=== PATIENT | female | born 1960 | race Caucasian/White ===

== ENCOUNTER → 2017-08-25 13:29 | Outpatient (CLI) | payer BC, SELFPAY ==
--- NOTE | 2017-08-25 13:37 | RAD_ITS ---
STUDY: X-RAY CHEST REASON FOR EXAM: Female, 57 years old. One-month history of cough and illness. TECHNIQUE: PA and lateral views of the chest. COMPARISON: None. FINDINGS: Increased markings in the lingular segment of the left upper lobe suggestive of a possible early infiltrate. Follow-up is recommended. There is no demonstrated pleural abnormality. Normal size heart. Normal mediastinum and keshia. Normal visualized pulmonary arteries. There is atherosclerotic tortuosity of the aortic arch and descending thoracic aorta. There are degenerative changes of the visualized thoracic spine. Normal visualized ribs, clavicles, and shoulders. There is no demonstrated abnormality of the visualized soft tissue structures of the upper abdomen. RAD/Chest PA and Lateral IMPRESSION: Increased markings in the lingular segment of the left upper lobe suggestive of early infiltrate. Electronically Signed: Tato Knox MD at 14:06 EST Tel [phone], Service support ,
== END ==
PROVIDERS: Family Provider Internal Medicine; PCP Internal Medicine; Visit Provider Internal Medicine
DX: R05 Cough (principal)
CPT/HCPCS: 71046

== ENCOUNTER → 2017-09-24 11:43 | Outpatient (CLI) | payer BC, SELFPAY ==
--- NOTE | 2017-09-24 11:46 | RAD_ITS ---
STUDY: X-RAY CHEST REASON FOR EXAM: Female, 57 years old. Pneumonia TECHNIQUE: PA and lateral views of the chest. COMPARISON: 08/25/2017 FINDINGS: The lungs are clear and expanded. There is no demonstrated pleural abnormality. Normal size heart. Normal mediastinum and keshia. Normal visualized pulmonary arteries. Normal visualized aortic arch and descending thoracic aorta. There are diffuse degenerative changes of the visualized thoracic spine. Degenerative changes are seen within the right acromioclavicular joint. There is no demonstrated abnormality of the visualized soft tissue structures of the upper abdomen. RAD/Chest PA and Lateral IMPRESSION: Degenerative changes, as described above. No demonstrated acute cardiopulmonary process. Electronically Signed: Madi Sheikh DO at 11:04 EDT Tel , Service support ,
== END ==
PROVIDERS: Family Provider Internal Medicine; PCP Internal Medicine; Visit Provider Internal Medicine
DX: Z87.01 Personal history of pneumonia (recurrent) (principal)
CPT/HCPCS: 71046

== ENCOUNTER → 2018-08-03 11:43 | Outpatient (CLI) | payer BC, SELFPAY ==
--- NOTE | 2018-08-03 11:47 | BI_ITS ---
MAMMOGRAPHY - BILATERAL SCREENING REASON FOR EXAM: Female, 58 years old. Routine annual screening examination. PERTINENT HISTORY: Grandmother with breast cancer. Aunt with breast cancer. TECHNIQUE: Digital bilateral breast omari (3D mammographic acquisition) in the CC and MLO projections. 2-D mediolateral oblique (MLO) and craniocaudad (CC) views of both breasts were obtained. CAD: Full Field Digital Mammography with Computer Added Detection was performed. COMPARISON: Comparison is made with prior study dated February 16, 2016 and January 19, 2015. FINDINGS: Breast Composition: There are scattered areas of fibroglandular density. There are no dominant masses or suspicious calcifications. No other significant abnormalities are identified. There has been no significant change since the prior study. BI/SCREENING MAMM (CAD), BILAT IMPRESSION: Stable bilateral screening mammogram. Yearly follow-up mammogram recommended. (A) ASSESSMENT CATEGORY: BIRADS Category 1: Negative. A letter regarding these results will be sent to the patient by the facility within 30 days. Approximately 10% of breast cancers are not detected by mammography. A normal mammogram should not delay biopsy of a clinically suspicious abnormality. [id number] Electronically Signed: Tato Knox MD at 12:56 EST Tel [phone], Service support ,
--- OUTSIDE RECORDS SUMMARY | 2018-10-05 22:57 | XMS RPT_ITS | Continuity of Care Document ---
:1960 Author Organization [facility] Address [address] [facility] [address] [place] [address] Phone Care Team Providers Name Role Phone Billie Laurent DO Unavailable Dr. Sandoval Enrique Unavailable Bianca Fonseca Unavailable Dr. Juan Mercer Unavailable Aakash Butt Unavailable Unavailable Leslee Rose CNP Unavailable Long 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, Kathy L Unavailable Unavailable Gravius, Aimee Unavailable Unavailable Unavailable Unavailable Problems Name Dates Details Acute non-recurrent sinusitis, unspecified location (J01.90, 461.9) Status: Active ANEMIA, UNSPECIFIED (D64.9, 285.9) Status: Active Anxiety (F41.9, 300.00) Comments: PHQ 9: 5(mild depression, severe anxiety),was started on Celexa 20 mg, used it for 2 weeks but wants to use something natural as experiencing fatigue, not noticing any improvement at all(told her will not notice improvement so early)Discontinue celexa.Counselled patient: Integrative medicine is a blend of medical and nutritional(plant based/whole food) approach to support a physiologic or organ syste m without prescription or surgery.I gave the patient both conventional options as well as traditional nutritional options including nutritional supplements, diet and lifestyle changes.Patient wants to s top celexa and wanted to support her body naturally. Started on Minchex 1 tab Qd, will follow up in one month, consider increasing to BID.Consider adding SYmplex F.Refusing counselling Leslee Fonseca .Follow up in 4 weeks.Come home tired, doesnt want to do anything,Is not interested in daily activities,Energy level low,Denies Suicidal/homicidal ideations.Feels anxious all the time, fear of needles a nd procedures, anxiety with colonoscopy.Works [employer],job changes, 23 yr old daughter has DOWNS and lives with her .Had counselling for PTSD after daughter was born. Status: Active BMI 38.0-38.9,adult (Z68.38, V85.38) Status: Active BMI 40.0-44.9, adult (Z68.41, V85.41) Comments: DIET AND EXERCISE:-health recomendations that are to be followed unless otherwise told unable to do are 10,000 steps a day (can buy a pedometer at sport stores), -5 days of week of 30 mins of cardiotrai nuria (increase heartrate around 110-130 and sweating in 10 min), twice a week of 15 min weight lifting. -Cut out corn syrups, sweets, breads pasta and potatoes, white flour.Eat more whole grain bread or pasta if have to have any use spagetti squash for pasta and quinoa for rice.(whole grains to increase are barley, brown rice, bulgar wheat, popcorn oat cereal, oatmeal, muesli cereal, rye quinoa, whole grain anything recommend 1/3 of grains whole grains, about 30 gm a day)- clean eating is recommend with lean protein like fish, chicken, turkey, lean redmeat (only 2-3 servings a week), baked broil ed or grilled.- saturated fats to avoid are meat, dairy, chips, pastries, hydrogenated veg. oilunsaturated fats that are good are nuts, avocados, olives- raw vegetables. 2 servings of fruit a day and d ouble the vegatables over fruits-Eat from refrigerator not pantry. Shop from the outside aisle and produce and not inner aisle.Weigh yourself daily, lose 1- 2 pounds per week.Can join WHY WEIGHT program me with [facility] for nutrition counselling. BMI 40.46.Cost 300 $ so does not want to spend the money.Does not exercise Status: Active Candidiasis, mouth (B37.0, 112.0) Status: Active Deliveries (Parity) Comments: 2. Status: Active Diverticular disease (K57.90, 562.10) Comments: based on CT scan abdomen /pelvis(03-31-15).High fiber diet Status: Active Elevated blood pressure reading (R03.0, 796.2) Comments: need to recheck in few weeks. Status: Active Fatigue (R53.83, 780.79) Status: Active GERD (530.81) Comments: History of reflux and large hiatal hernia for the last 5 years. Patient is taking Prilosec off and on. Denies any blood in the stools, black tarry stools, difficulty swallowing, unexplained weight loss or abd pain. Status: Active Hiatal hernia (K44.9, 553.3) Comments: Very large(based on Ct abdomen/pelvis )03-31-15 Status: Active History of migraine headaches (Z86.69, V12.49) Comments: followed as 5 x 5 in both lower extremities. Reflexes +2 in both lower extremities. Sensation is normal in both lower extremities. All risks 5 x 5 both upper extremities. Sensation is normal in both upper extremities. Reflexes normal in both upper extremities.Patient was advised to get a head CT but refused.Continue Excedrin MigraineContinue Tylenol Extra Strength as needed.Refer the patient to p hysical therapy for subjective weakness in the legs. Consider EMG and nerve conduction studies if weakness persist in the future but patient is refusing now.patient has a history of migraine headaches b ut for the last 5 days is complaining of headaches in the frontal sinuses. Headache is 6 x 10 in severity and lasted the whole day. Had episodes of headache on Friday and Friday. Unlike he r migraine headaches. Patient typically has photophobia and phonophobia with her migraine headaches. Complaining of chronic weakness in her legs L>R since she had left knee surgery.She thinks i ts because of weak knees. Patient wakes up in the middle of the night with her headache. Patient is unable to concentrate on her work because of her headaches. Status: Active HTN (hypertension), benign (I10, 401.1) Status: Active Hypercholesteremia (Renamed from Hypercholesterolemia) (E78.00, 272.0) Status: Active Influenza vaccination declined (Renamed from Refused influenza vaccine) (Z28.21, V64.06) Comments: i dont get flu shotsi dont get flu shots Status: Active Knee pain, chronic, left (M25.562, 719.46) Comments: reffered for physical therapy Status: Active Need for prophylactic vaccination and inoculation against influenza (Renamed from Need for immunization against influenza) (Z23, V04.81) Status: Active Non-smoker (Z78.9, V49.89) Status: Active Non-smoker (Z78.9, V49.89) Status: Active Nutritional counseling (Z71.3, V65.3) Status: Active Plantar fasciitis, left (M72.2, 728.71) Comments: PLANTER FASCITIS now improved with Naproxen BID, avoid prolong standing, flat shoes and walking barefoot. using Arch support.Will work on Stretching exercise.Pain and swelling in left foot since July .Pain on bottom of foot, lateral side of foot, worse after walking.No trauma.Wakes in the middle of the night with pain.Hurts when pushes on the head of the 2nd Metatarsal on the base.Her toes are crowded from and dorsilflexed. Status: Active Pregnancies () Comments: 2. Status: Active Psoriasis (L40.9, 696.1) Comments: Patient has some psoriatic plaques on the extensor surface of the arms and legs. Status: Active Sciatica of right side (M54.31, 724.3) Comments: rx massage therapy gfivne Status: Active Screening mammogram, encounter for (Z12.31, V76.12) Status: Active Sore throat (J02.9, 462) Status: Active Sore throat (J02.9, 462) Status: Active Stress reaction (F43.0, 308.9) Status: Active Unspecified Diagnosis Status: Active Unspecified Diagnosis Status: Active Medications Name Dates Details Clotrimazole 10 MG Mouth/Throat Robert 1 (one) Robert 5x daily for 10 days Quantity: 50 {Robert} Refills: 0 Ordered:09-Jun-2018 Leslee Rose CNP Start : 09-Jun-2018 Active Lisinopril-Hydrochlorothiazide 10-12.5 MG Oral Tablet 1/2 Tablet bid for 60 days Quantity: 60 {Tablet} Refills: 0 Ordered:18-Jun-2018 Willy Laurent DO, DO, Kathleen Start : 18-Jun-2018 Active PriLOSEC 20 MG Oral Capsule Delayed Release 1 (one) Capsule DR two times daily for 30 days Quantity: 60 {Capsule} Refills: 6 Ordered:30-Sep-2017 Willy Laurent DO, DO, Kathleen Start : 30-Sep-2017 Active Comments:30 minutes before meals Albuterol Sulfate (2.5 MG/3ML) 0.083% Inhalation Nebulization Solution 1 (one) Milliliter q 6hr prn for 0 days Quantity: 1 {Box} Refills: 0 Ordered:20-Apr-2018 Aimee Rivera Start : 27-Aug-2017 End : 20-Apr-2018 Inactive Amoxicillin 500 MG Oral Capsule 1 (one) Capsule Capsule q12h for 10 days Quantity: 20 {Capsule} Refills: 0 Ordered:26-Aug-2017 Willy Laurent DO, DO, Kathleen Start : 19-Aug-2017 End : 26-Aug-2017 Inactive Amoxicillin 875 MG Oral Tablet 1 (one) Tablet Tablet bid for 0 days Quantity: 20 {Tablet} Refills: 0 Ordered:04-Nov-2017 Nya Olivarez LPN Start : 24-Sep-2017 End : 04-Nov-2017 Inactive CELEXA, 20MG (Oral Tablet) 1 (one) Tablet daily for 30 days Quantity: 30 {Tablet} Refills: 0 Ordered:12-Oct-2015 Fermin Oviedo MD Start : 12-Oct-2015 End : 11-Nov-2015 Inactive Cheratussin AC 100-10 MG/5ML Oral Syrup 4 Milliliter Milliliter qhs prn cough for 0 days Quantity: 120 {Milliliter} Refills: 0 Ordered:02-Sep-2017 Nya Olivarez LPN Start : 19-Aug-2017 End : 02-Sep-2017 Inactive Clobetasol Propionate 0.05 % External Cream apply to affected area Cream two times daily for 30 days Quantity: 1 {Tube} Refills: 0 Ordered:30-Sep-2017 Willy Laurent DO, DO, Kathleen Start : 30-Sep-2017 End : 30-Oct-2017 Inactive EXCEDRIN MIGRAINE, 017-824-46TA (Oral Tablet) 1 prn for migraines (250-250-65 MG) Inactive Ferrous Sulfate 325 (65 Fe) MG Oral Tablet Delayed Release 1 (one) Tablet DR tid for 30 days Refills: 2 Ordered:20-Apr-2018 Aimee Rivera Start : 21-Aug-2015 End : 20-Apr-2018 Inactive Comments:.For constipation take Miralax mixed in apple juice once a day. Levaquin 750 MG Oral Tablet 1 (one) Tablet qd for 0 days Quantity: 3 {Tablet} Refills: 0 Ordered:02-Sep-2017 Nya Olivarez LPN Start : 27-Aug-2017 End : 02-Sep-2017 Inactive PredniSONE 10 MG Oral Tablet 1 (one) Tablet Tablet 1 bid x 3 days, then daily x 3 days then 1/2 x 3 days for 0 days Quantity: 12 {Tablet} Refills: 0 Ordered:02-Sep-2017 Nya Olivarez LPN Start : 19-Aug-2017 End : 02-Sep-2017 Inactive Comments:with food PRILOSEC OTC, 20MG (Oral Tablet Delayed Release) 1 qd (20 MG) Inactive ProAir HFA 108 (90 Base) MCG/ACT Inhalation Aerosol Solution 2 (two) Puff Puff tid prn for 0 days Quantity: 1 {Inhaler} Refills: 0 Ordered:20-Apr-2018 Aimee Rivera Start : 19-Aug-2017 End : 20-Apr-2018 Inactive TYLENOL EXTRA STRENGTH, 500MG (Oral Tablet) 1 prn (500 MG) Inactive Allergies and Adverse Reactions Name Dates Details TEGretol *ANTICONVULSANTS* (Allergy) Status: Active Comments: hives Zithromax Z-Jesus *MACROLIDES* (Allergy) Status: Active Comments: severe GI Past Medical History Name Dates Details Abnormal CXR (R93.89, 793.2) Comments: Repeat CXR to check for resolution.Pt is resistant to getting CXR.WIll check with radiology03/2015 - infiltrate and atelectasis Status: Inactive as of 30-Sep-2017 Abnormal lung sounds (R09.89, 786.7) Status: Inactive as of 30-Sep-2017 Acute generalized abdominal pain (Renamed from Abdominal pain, acute, generalized) (R10.84, 789.07) Comments: Resolved with miralax.Complete metabolic panel, amylase, lipase WNLCeliac panel:negativeabdominal pain and bloating:Now resolved with miralax and dietary changes.Colonoscopy:Scaterred diverticula, Xray abdomen /pelvis:Unremarkable bowel gas pattern. Bilateral basilar infiltrate/atelectsis.(03-29-15).Denies loose stools Status: Resolved as of 25-Aug-2017 Bronchitis (J40, 490) Status: Inactive as of 25-Aug-2017 Cough (R05, 786.2) Status: Resolved as of 24-Sep-2017 DIARRHEA (Renamed from D (diarrhea)) (R19.7, 787.91) Comments: Diarrhea likely viral gastroenteritis now resolvednow resolved Status: Inactive as of 25-Aug-2017 Elevated BP without diagnosis of hypertension (R03.0, 796.2) Status: Inactive as of 11-May-2018 Pneumonia, bacterial (J15.9, 482.9) Status: Resolved as of 24-Sep-2017 Retracted ear drum, bilateral (H73.823, 384.82) Status: Inactive as of 30-Sep-2017 Procedures Procedure Dates Details Cholecystectomy Completed Comments: 2009 Left Knee, meniscus repair and arthroscopy Completed Comments: February 2009 Mammogram (01-19-2015) stable Completed Microvascular Decompression Completed Comments: February 2007 Date Value Details 24-Sep-2017 Chest PA and Lateral Result: Comments: See Note; NOTES: [facility] Imaging Services [address] [place] [id number] Chest PA and Lateral MR#: [id number] Acct: [id number] Name: ANABELLA MICHEL Rep #: [id number] : 1960 F 57 From: Madi Sheikh DO PCP: Billie Laurent DO Status: REG CLI Study: Chest PA and Lateral Date of Exam: 09/24/17 Exam# [id number] Ordering Dr: Billie Laurent DO STUDY: X-RAY CHEST REASON FOR EXAM: Female, 57 years old. Pneumonia TECHNIQUE: PA and lateral views of the chest. COMPARISON: 08/25/2017 FINDINGS: The lungs are clear and exp anded. There is no demonstrated pleural abnormality. Normal size heart. Normal mediastinum and keshia. Normal visualized pulmonary arteries. Normal visualized aortic arch and descending thoracic aorta. There are diffuse degenerative changes of the visualized thoracic spine. Degenerative changes are seen within the right acromioclavicular joint. There is no demonstrated abnormality of the visualized s oft tissue structures of the upper abdomen. RAD/Chest PA and Lateral IMPRESSION: Degenerative changes, as described above. No demonstrated acute cardiopulmonary process. Electronically Signed: Madi Sheikh DO at 11:04 EDT Tel , Service support , CC: Billie Laurent DO Community Development Planner: Signed 25-Aug-2017 Chest PA and Lateral Result: Comments: See Note; NOTES: [facility] Imaging Services [address] [place] [id number] Chest PA and Lateral MR#: [id number] Acct: [id number] Name: ANABELLA MICHEL Rep #: [id number] : 1960 F 57 From: Tato Knox MD PCP: Billie Laurent DO Status: REG CLI Study: Chest PA and Lateral Date of Exam: 08/25/17 Exam# [id number] Ordering Dr: Billie Laurent DO STUDY: X- RAY CHEST REASON FOR EXAM: Female, 57 years old. One-month history of cough and illness. TECHNIQUE: PA and lateral views of the chest. COMPARISON: None. FINDINGS: Increased markings in the lingular segment of the left upper lobe suggestive of a possible early infiltrate. Follow-up is recommended. There is no demonstrated pleural abnormality. Normal size heart. Normal mediastinum and keshia. Normal visualized pulmonary arteries. There is atherosclerotic tortuosity of the aortic arch and descending thoracic aorta. There are degenerative changes of the visualize d thoracic spine. Normal visualized ribs, clavicles, and shoulders. There is no demonstrated abnormality of the visualized soft tissue structures of the upper abdomen. __ RAD/Chest PA and Lateral IMPRESSION: Increased markings in the lingular segment of the left upper lobe suggestive of early infiltrate. Electronically Signed: Tato Knox MD at 14:06 EST Tel [phone], Service support , CC: Billie Laurent DO Community Development Planner: Signed 16-Feb-2016 Bilat Scrn Digital AND CAD Result: Comments: See Note; NOTES: [facility] Imaging Services [address] [place] [id number] Verdana 4d Bilat Scrn Digital AND CAD MR#: [id number] Acct: [id number] Name: ANABELLA MICHEL Rep #: [id number] : 1960 F 55 From: Tato Knox MD PCP: Fermin Oviedo Status: REG CL Study: Bilat Scrn Digital AND CAD Date of Exam: 02/16/16 Exam# [id number] Ordering Dr: Bertha Richardson MD MAMMOGRAPHY - BILATERAL SCREENING REASON FOR EXAM: Female, 55 years old. Routine annual screening examination. PERTINENT HISTORY: Grandmother with breast cancer. TECHNIQUE: Digital bilateral breast omari (3D mammographic acquisition) in the CC and MLO projections. 2-D mediolateral oblique (MLO) and craniocaudad (CC) views of both breasts were obtained. CAD: Full Field Digital Mammography wi Computer Added Detection was performed. COMPARISON: Comparison is made with prior study dated January 19, 2015 and May 17, 2013. FINDINGS: Breast Composition: Th ere are scattered areas of fibroglandular density. There are no dominant masses or suspicious calcifications. No other significant abnormalities are identified. There has been no significant change si nce the prior study. HPBI/Bilat Scrn Digital AND CAD IMPRESSION: Stable bilateral screening mammogram. Yearly follow-up mammogram recommended. ( A) ASSESSMENT CATEGORY: BIRADS Category 1: Negative. A letter regarding these results will be sent to the patient by the facility within 30 days. Approximately 10% of breast cancers are not detected by mammography. A normal mammogram should not delay biopsy of a clinically suspicious abnormality. [id number] Electronically Signed: Tato Knox MD a t 15:42 EDT Tel [phone], Service support [phone], CC: Fermin Oviedo; Sima Richardson MD Community Development Planner: Signed Family History Unknown Family Member Name Dates Details Father Comments: diabestes, htn Status: Active Mother Comments: ulcerated colitis Status: Active Social History Name Dates Details No Caffeine Use Status: Active No Drug Use Status: Active Non Drinker/No Alcohol Use Status: Active Non Smoker/No Tobacco Use Status: Active Vital Signs Date Test Result Details [id number] Temperature 97.5 f Pulse 83 /min Comments: Pattern: Regular Respiration Rate 16 /min Comments: Pattern: Unlabored O2 SAT 96 % Comments: Room air BP Systolic 130 mm[Hg] Comments: Patient Position: Sitting; Cuff Location: Left Arm; Cuff Size: Standard BP Diastolic 82 mm[Hg] Comments: Patient Position: Sitting; Cuff Location: Left Arm; Cuff Size: Standard Weight 211.125 lb Height 62 in Body Mass Index Calculated 38.61 kg/m2 Body Surface Area Calculated 1.96 m2 [id number] Comments: her machine 132/82 Pulse 88 /min Comments: Pattern: Regular Respiration Rate 18 /min Comments: Pattern: Unlabored O2 SAT 98 % Comments: Room air BP Systolic 122 mm[Hg] Comments: Patient Position: Sitting; Cuff Location: Left Arm; Cuff Size: Large BP Diastolic 80 mm[Hg] Comments: Patient Position: Sitting; Cuff Location: Left Arm; Cuff Size: Large Weight 211.125 lb Height 62 in Body Mass Index Calculated 38.61 kg/m2 Body Surface Area Calculated 1.96 m2 :35 BP Systolic 146 mm[Hg] Comments: Patient Position: Sitting; Cuff Location: Left Arm; Cuff Size: Standard BP Diastolic 78 mm[Hg] Comments: Patient Position: Sitting; Cuff Location: Left Arm; Cuff Size: Standard Weight 211 lb Height 62 in Body Mass Index Calculated 38.59 kg/m2 Body Surface Area Calculated 1.96 m2 :48 Temperature 98 f Comments: Method: Temporal Pulse 76 /min Comments: Pattern: Regular Respiration Rate 16 /min Comments: Pattern: Unlabored O2 SAT 98 % Comments: Room air BP Systolic 180 mm[Hg] Comments: Patient Position: Sitting; Cuff Location: Left Arm; Cuff Size: Standard BP Diastolic 118 mm[Hg] Comments: Patient Position: Sitting; Cuff Location: Left Arm; Cuff Size: Standard Weight 211 lb Height 62 in Body Mass Index Calculated 38.59 kg/m2 Body Surface Area Calculated 1.96 m2 :25 Pulse 87 /min Comments: Pattern: Regular Respiration Rate 18 /min Comments: Pattern: Unlabored O2 SAT 97 % Comments: Room air BP Systolic 142 mm[Hg] Comments: Patient Position: Sitting; Cuff Location: Left Arm; Cuff Size: Large BP Diastolic 98 mm[Hg] Comments: Patient Position: Sitting; Cuff Location: Left Arm; Cuff Size: Large Weight 222 lb Height 62 in Body Mass Index Calculated 40.6 kg/m2 Body Surface Area Calculated 2 m2 [id number] Comments: 142/102 catapress given 0.1mg at 11:40 Pulse 80 /min Comments: Pattern: Regular Respiration Rate 18 /min Comments: Pattern: Unlabored O2 SAT 98 % Comments: Room air BP Systolic 156 mm[Hg] Comments: Patient Position: Sitting; Cuff Location: Left Arm; Cuff Size: Large BP Diastolic 102 mm[Hg] Comments: Patient Position: Sitting; Cuff Location: Left Arm; Cuff Size: Large Weight 222 lb Height 62 in Body Mass Index Calculated 40.6 kg/m2 Body Surface Area Calculated 2 m2 :42 Temperature 98.8 f Comments: Method: Temporal Pulse 96 /min Comments: Pattern: Regular Respiration Rate 18 /min Comments: Pattern: Unlabored O2 SAT 97 % Comments: Room air BP Systolic 142 mm[Hg] Comments: Patient Position: Sitting; Cuff Location: Left Arm; Cuff Size: Large BP Diastolic 90 mm[Hg] Comments: Patient Position: Sitting; Cuff Location: Left Arm; Cuff Size: Large Weight 222 lb Height 62 in Body Mass Index Calculated 40.6 kg/m2 Body Surface Area Calculated 2 m2 [id number] Pulse 106 /min Comments: Pattern: Regular Respiration Rate 18 /min Comments: Pattern: Unlabored O2 SAT 98 % Comments: Room air BP Systolic 124 mm[Hg] Comments: Patient Position: Sitting; Cuff Location: Left Arm; Cuff Size: Large BP Diastolic 88 mm[Hg] Comments: Patient Position: Sitting; Cuff Location: Left Arm; Cuff Size: Large Weight 221 lb Height 62 in Body Mass Index Calculated 40.42 kg/m2 Body Surface Area Calculated 1.99 m2 :10 Pulse 74 /min Comments: Pattern: Regular Respiration Rate 18 /min Comments: Pattern: Unlabored O2 SAT 97 % Comments: Room air BP Systolic 138 mm[Hg] Comments: Patient Position: Sitting; Cuff Location: Left Arm; Cuff Size: Large BP Diastolic 88 mm[Hg] Comments: Patient Position: Sitting; Cuff Location: Left Arm; Cuff Size: Large Weight 221 lb Height 62 in Body Mass Index Calculated 40.42 kg/m2 Body Surface Area Calculated 1.99 m2 :07 Pulse 89 /min Comments: Pattern: Regular Respiration Rate 20 /min Comments: Pattern: Unlabored O2 SAT 98 % Comments: Room air BP Systolic 148 mm[Hg] Comments: Patient Position: Sitting; Cuff Location: Left Arm; Cuff Size: Large BP Diastolic 98 mm[Hg] Comments: Patient Position: Sitting; Cuff Location: Left Arm; Cuff Size: Large Weight 221 lb Height 62 in Body Mass Index Calculated 40.42 kg/m2 Body Surface Area Calculated 1.99 m2 :51 Temperature 98.2 f Comments: Method: Temporal Pulse 72 /min Comments: Pattern: Regular Respiration Rate 16 /min Comments: Pattern: Unlabored O2 SAT 98 % Comments: Room air BP Systolic 164 mm[Hg] Comments: Patient Position: Sitting; Cuff Location: Left Arm; Cuff Size: Standard BP Diastolic 94 mm[Hg] Comments: Patient Position: Sitting; Cuff Location: Left Arm; Cuff Size: Standard Weight 221 lb Height 62 in Body Mass Index Calculated 40.42 kg/m2 Body Surface Area Calculated 1.99 m2 :37 BP Systolic 142 mm[Hg] Comments: Patient Position: Sitting; Cuff Location: Left Arm; Cuff Size: Standard BP Diastolic 82 mm[Hg] Comments: Patient Position: Sitting; Cuff Location: Left Arm; Cuff Size: Standard Weight 219.375 lb Height 62 in Body Mass Index Calculated 40.12 kg/m2 Body Surface Area Calculated 1.99 m2 :41 Temperature 97.8 f Comments: Method: Oral Pulse 92 /min Comments: Pattern: Regular O2 SAT 97 % Comments: Room air BP Systolic 128 mm[Hg] Comments: Patient Position: Sitting; Cuff Location: Left Arm; Cuff Size: Large BP Diastolic 78 mm[Hg] Comments: Patient Position: Sitting; Cuff Location: Left Arm; Cuff Size: Large Weight 219.375 lb Height 62 in Body Mass Index Calculated 40.12 kg/m2 Body Surface Area Calculated 1.99 m2 :22 Temperature 97 f Comments: Method: Temporal Pulse 93 /min Comments: Pattern: Regular Respiration Rate 16 /min Comments: Pattern: Unlabored O2 SAT 96 % Comments: Room air BP Systolic 124 mm[Hg] Comments: Patient Position: Sitting; Cuff Location: Left Arm; Cuff Size: Standard BP Diastolic 72 mm[Hg] Comments: Patient Position: Sitting; Cuff Location: Left Arm; Cuff Size: Standard Weight 219 lb Height 62 in Body Mass Index Calculated 40.06 kg/m2 Body Surface Area Calculated 1.99 m2 :47 Height 62 in :20 Temperature 98.5 f Comments: Method: Temporal Pulse 100 /min Comments: Pattern: Regular Respiration Rate 16 /min Comments: Pattern: Unlabored O2 SAT 97 % Comments: Room air BP Systolic 124 mm[Hg] Comments: Patient Position: Sitting; Cuff Location: Left Arm; Cuff Size: Standard BP Diastolic 80 mm[Hg] Comments: Patient Position: Sitting; Cuff Location: Left Arm; Cuff Size: Standard Weight 221.2 lb Height 62 in Body Mass Index Calculated 40.46 kg/m2 Body Surface Area Calculated 2 m2 :59 Temperature 98.2 f Comments: Method: Temporal Pulse 76 /min Comments: Pattern: Regular Respiration Rate 17 /min Comments: Pattern: Unlabored O2 SAT 98 % Comments: Room air BP Systolic 142 mm[Hg] Comments: Patient Position: Sitting; Cuff Location: Left Arm; Cuff Size: Standard BP Diastolic 78 mm[Hg] Comments: Patient Position: Sitting; Cuff Location: Left Arm; Cuff Size: Standard Weight 221.2 lb :51 Comments: 128/78, 89 /72, 92 /68, 95 standing Temperature 98.7 f Pulse 90 /min Comments: Pattern: Regular Respiration Rate 16 /min Comments: Pattern: Unlabored O2 SAT 99 % Comments: Room air BP Systolic 128 mm[Hg] Comments: Patient Position: Sitting; Cuff Location: Left Arm; Cuff Size: Standard BP Diastolic 80 mm[Hg] Comments: Patient Position: Sitting; Cuff Location: Left Arm; Cuff Size: Standard Weight 216 lb Results Date Description Value Details 20-Eov-972847:35 Renal function Panel (80825) Comments: PATIENT NOT FASTINGPERFORMED BY: JAY JAY [facility]70 [facility] [id number] Albumin 4.1 g/dL (Normal) Range: 3.5-5.5 Phosphorus 3.9 mg/dL (Normal) Range: 2.5-4.5 Calcium 9.6 mg/dL (Normal) Range: 8.7-10.2 Carbon Dioxide, Total 25 mmol/L (Normal) Range: 20-29 Chloride 103 mmol/L (Normal) Range: 96-106 Potassium 4.5 mmol/L (Normal) Range: 3.5-5.2 Sodium 144 mmol/L (Normal) Range: 134-144 BUN/Creatinine Ratio 22 (Normal) Range: 9-23 eGFR If Africn Am 89 mL/min/1.73 (Normal) eGFR If NonAfricn Am 77 mL/min/1.73 (Normal) Creatinine 0.85 mg/dL (Normal) Range: 0.57-1.00 BUN 19 mg/dL (Normal) Range: 6-24 Glucose 100 mg/dL (Abnormal) Range: 65-99 02-Mge-313503:35 CBC & PLATELETS (AUTO) Comments: PATIENT NOT FASTINGPERFORMED BY: CB Datavolution RoadDublin [place] [id number] (73585) Platelets 400 {x10E3/uL} (Abnormal) Range: 150-379 RDW 18.3 % (Abnormal) Range: 12.3-15.4 MCHC 32.5 g/dL (Normal) Range: 31.5-35.7 MCH 23.6 pg (Abnormal) Range: 26.6-33.0 MCV 73 fL (Abnormal) Range: 79-97 Hematocrit 34.5 % (Normal) Range: 34.0-46.6 Hemoglobin 11.2 g/dL (Normal) Range: 11.1-15.9 RBC 4.74 {x10E6/uL} (Normal) Range: 3.77-5.28 WBC 9.8 {x10E3/uL} (Normal) Range: 3.4-10.8 68-Ajy-491833:35 EBV Panel (90906) Comments: PATIENT NOT FASTINGPERFORMED BY: [facility]6370 [facility] [id number] Interpretation: SPRCS (Normal) Comments: EBV Interpretation Chart . Interpretation EBV-IgM EA(D)-IgG VCA-IgG EBNA-IgG . EBV Seronegative - - - - Early Phase + - - - Acute Primary + +or- + - Infection Convalescence/Past - +or- + + Infection Reactivated +or- + + + Infection + Antibody Present - Antibody Absent EBV Nuclear Antigen Ab, IgG >600.0 U/mL (Abnormal) Range: 0.0-17.9 Comments: Negative <18.0 Equivocal 18.0 - 21.9 Positive >21.9 EBV Ab VCA, IgG >600.0 U/mL (Abnormal) Range: 0.0-17.9 Comments: Negative <18.0 Equivocal 18.0 - 21.9 Positive >21.9 EBV Early Antigen Ab, IgG 28.6 U/mL (Abnormal) Range: 0.0-8.9 Comments: Hepatitis A, Hepatitis C and HIV antibodies may cross-reactwith this assay. Negative < 9.0 Equivoc al 9.0 - 10.9 Positive >10.9 EBV Ab VCA, IgM <36.0 U/mL (Normal) Range: 0.0-35.9 Comments: Negative <36.0 Equivocal 36.0 - 43.9 Positive >43.9 51-Znx-324326:20 Rapid Strep Test, Office (42175) Comments: neg Rapid Strep Test, Office Negative (Normal) 24-Hdp-170713:03 THROAT CULTURE (13057) Comments: PATIENT NOT FASTINGPERFORMED BY: [employer] Icpsix8136 [facility] [id number] Information: SRC:TH Result 1 RRF (Normal) Comments: Routine respiratory jose Upper Respiratory Culture Final report (Normal) 0-Crr-759157:55 Microscopic Examination Comments: PATIENT NOT FASTINGPERFORMED BY: [employer] Pawfgp6023 [facility] [id number] Bacteria None seen (Normal) Mucus Threads Present (Normal) Epithelial Cells (non renal) None seen {/hpf} (Normal) Range: 0 - 10 RBC 0-2 {/hpf} (Normal) Range: 0 - 2 WBC 0-5 {/hpf} (Normal) Range: 0 - 5 5-Atc-357197:55 URINALYSIS, W/ MICRO (41908) Comments: PATIENT NOT FASTINGPERFORMED BY: [employer] Cxqhzb4742 [facility] [id number] Microscopic Examination See below: (Normal) Comments: Microscopic was indicated and was performed. Nitrite, Urine Negative (Normal) Urobilinogen,Semi-Qn 0.2 mg/dL (Normal) Range: 0.2-1.0 Bilirubin Negative (Normal) Occult Blood Negative (Normal) Ketones Negative (Normal) Glucose Negative (Normal) Protein Negative (Normal) WBC Esterase 1+ (Abnormal) Appearance Clear (Normal) Urine-Color Yellow (Normal) pH 6.5 (Normal) Range: 5.0-7.5 Specific [place] 1.016 (Normal) Range: 1.005-1.030 1-Rhz-866322:55 METABOLIC PANEL, COMPREHENSIVE Comments: PATIENT NOT FASTINGPERFORMED BY: [facility] Wtyioo1089 [facility] [id number] (61500) ALT (SGPT) 14 [iU]/L (Normal) Range: 0-32 AST (SGOT) 13 [iU]/L (Normal) Range: 0-40 Alkaline Phosphatase 104 [iU]/L (Normal) Range: 39-117 Bilirubin, Total 0.6 mg/dL (Normal) Range: 0.0-1.2 A/G Ratio 1.5 (Normal) Range: 1.2-2.2 Globulin, Total 3.0 g/dL (Normal) Range: 1.5-4.5 Albumin 4.4 g/dL (Normal) Range: 3.5-5.5 Protein, Total 7.4 g/dL (Normal) Range: 6.0-8.5 Calcium 9.1 mg/dL (Normal) Range: 8.7-10.2 Carbon Dioxide, Total 22 mmol/L (Normal) Range: 20-29 Chloride 102 mmol/L (Normal) Range: 96-106 Potassium 4.2 mmol/L (Normal) Range: 3.5-5.2 Sodium 141 mmol/L (Normal) Range: 134-144 BUN/Creatinine Ratio 18 (Normal) Range: 9-23 eGFR If Africn Am 117 mL/min/1.73 (Normal) eGFR If NonAfricn Am 102 mL/min/1.73 (Normal) Creatinine 0.62 mg/dL (Normal) Range: 0.57-1.00 BUN 11 mg/dL (Normal) Range: 6-24 Glucose 89 mg/dL (Normal) Range: 65-99 4-Zli-375893:55 CBC W/AUTO DIFF WBC (31436) Comments: PATIENT NOT FASTINGPERFORMED BY: [facility] Wugwtn8047 [facility] [id number] Immature Grans (Abs) 0.0 {x10E3/uL} (Normal) Range: 0.0-0.1 Immature Granulocytes 0 % (Normal) Baso (Absolute) 0.0 {x10E3/uL} (Normal) Range: 0.0-0.2 Eos (Absolute) 0.1 {x10E3/uL} (Normal) Range: 0.0-0.4 Monocytes(Absolute) 0.5 {x10E3/uL} (Normal) Range: 0.1-0.9 Lymphs (Absolute) 1.9 {x10E3/uL} (Normal) Range: 0.7-3.1 Neutrophils (Absolute) 5.9 {x10E3/uL} (Normal) Range: 1.4-7.0 Basos 0 % (Normal) Eos 1 % (Normal) Monocytes 6 % (Normal) Lymphs 23 % (Normal) Neutrophils 70 % (Normal) Platelets 421 {x10E3/uL} (Abnormal) Range: 150-379 RDW 18.3 % (Abnormal) Range: 12.3-15.4 MCHC 31.5 g/dL (Normal) Range: 31.5-35.7 MCH 23.2 pg (Abnormal) Range: 26.6-33.0 MCV 74 fL (Abnormal) Range: 79-97 Hematocrit 35.2 % (Normal) Range: 34.0-46.6 Hemoglobin 11.1 g/dL (Normal) Range: 11.1-15.9 RBC 4.78 {x10E6/uL} (Normal) Range: 3.77-5.28 WBC 8.5 {x10E3/uL} (Normal) Range: 3.4-10.8 64-Nzs-206351:45 Microscopic Examination Comments: PATIENT WAS FASTINGPERFORMED BY: [place] [employer]6370 [facility] [id number] Bacteria Few (Normal) Mucus Threads Present (Normal) Epithelial Cells (non renal) 0-10 {/hpf} (Normal) Range: 0 - 10 RBC None seen {/hpf} (Normal) Range: 0 - 2 WBC 0-5 {/hpf} (Normal) Range: 0 - 5 65-Niw-014168:45 URINALYSIS, W/ MICRO (19795) Comments: PATIENT WAS FASTINGPERFORMED BY: [employer] Gqpxrf0900 [facility] [id number] Microscopic Examination See below: (Normal) Comments: Microscopic was indicated and was performed. Nitrite, Urine Negative (Normal) Urobilinogen,Semi-Qn 0.2 mg/dL (Normal) Range: 0.2-1.0 Bilirubin Negative (Normal) Occult Blood Negative (Normal) Ketones Trace (Abnormal) Glucose Negative (Normal) Protein Negative (Normal) WBC Esterase Trace (Abnormal) Appearance Clear (Normal) Urine-Color Yellow (Normal) pH 6.0 (Normal) Range: 5.0-7.5 Specific [place] 1.014 (Normal) Range: 1.005-1.030 26-Hss-932957:45 MICROALBUMIN: CREATININE RATIO Comments: PATIENT WAS FASTINGPERFORMED BY: [employer] Zthnzd6009 [facility] [id number] (11001) AND (94758) Alb/Creat Ratio 8.4 {mg/g_creat} (Normal) Range: 0.0-30.0 Albumin, Urine 3.9 ug/mL (Normal) Creatinine, Urine 46.4 mg/dL (Normal) 52-Kle-727476:45 METABOLIC PANEL, COMPREHENSIVE Comments: PATIENT WAS FASTINGPERFORMED BY: [employer] Ryrali2835 [facility] [id number] (58088) ALT (SGPT) 18 [iU]/L (Normal) Range: 0-32 AST (SGOT) 15 [iU]/L (Normal) Range: 0-40 Alkaline Phosphatase, S 97 [iU]/L (Normal) Range: 39-117 Bilirubin, Total 0.7 mg/dL (Normal) Range: 0.0-1.2 A/G Ratio 1.4 (Normal) Range: 1.2-2.2 Globulin, Total 3.0 g/dL (Normal) Range: 1.5-4.5 Albumin, Serum 4.2 g/dL (Normal) Range: 3.5-5.5 Protein, Total, Serum 7.2 g/dL (Normal) Range: 6.0-8.5 Calcium, Serum 9.0 mg/dL (Normal) Range: 8.7-10.2 Carbon Dioxide, Total 26 mmol/L (Normal) Range: 18-29 Chloride, Serum 101 mmol/L (Normal) Range: 96-106 Potassium, Serum 4.0 mmol/L (Normal) Range: 3.5-5.2 Sodium, Serum 142 mmol/L (Normal) Range: 134-144 BUN/Creatinine Ratio 17 (Normal) Range: 9-23 eGFR If Africn Am 113 mL/min/1.73 (Normal) eGFR If NonAfricn Am 98 mL/min/1.73 (Normal) Creatinine, Serum 0.69 mg/dL (Normal) Range: 0.57-1.00 BUN 12 mg/dL (Normal) Range: 6-24 Glucose, Serum 88 mg/dL (Normal) Range: 65-99 09-Nxo-988427:45 LIPID PANEL (93883) Comments: PATIENT WAS FASTINGPERFORMED BY: [facility] AccessoriesP[facility] Medicine [facility] Medical CenterBfesmk6381 [facility] [id number] LDL/HDL Ratio 2.3 {ratio_units} (Normal) Range: 0.0-3.2 Comments: LDL/HDL Ratio Men Women 1/2 Avg.Risk 1.0 1.5 Av g.Risk 3.6 3.2 2X Avg.Risk 6.2 5.0 3X Avg.Risk 8.0 6.1 LDL Cholesterol Calc 146 mg/dL (Abnormal) Range: 0-99 VLDL Cholesterol [place] 17 mg/dL (Normal) Range: 5-40 HDL Cholesterol 63 mg/dL (Normal) Triglycerides 83 mg/dL (Normal) Range: 0-149 Cholesterol, Total 226 mg/dL (Abnormal) Range: 100-199 41-Laz-868814:45 CBC W/AUTO DIFF WBC (11578) Comments: PATIENT WAS FASTINGPERFORMED BY: [employer] Czeiyt8349 [facility] [id number] Immature Grans (Abs) 0.0 {x10E3/uL} (Normal) Range: 0.0-0.1 Immature Granulocytes 0 % (Normal) Baso (Absolute) 0.0 {x10E3/uL} (Normal) Range: 0.0-0.2 Eos (Absolute) 0.1 {x10E3/uL} (Normal) Range: 0.0-0.4 Monocytes(Absolute) 0.6 {x10E3/uL} (Normal) Range: 0.1-0.9 Lymphs (Absolute) 2.1 {x10E3/uL} (Normal) Range: 0.7-3.1 Neutrophils (Absolute) 5.6 {x10E3/uL} (Normal) Range: 1.4-7.0 Basos 0 % (Normal) Eos 1 % (Normal) Monocytes 7 % (Normal) Lymphs 25 % (Normal) Neutrophils 67 % (Normal) Platelets 404 {x10E3/uL} (Abnormal) Range: 150-379 RDW 16.7 % (Abnormal) Range: 12.3-15.4 MCHC 31.8 g/dL (Normal) Range: 31.5-35.7 MCH 23.5 pg (Abnormal) Range: 26.6-33.0 MCV 74 fL (Abnormal) Range: 79-97 Hematocrit 36.2 % (Normal) Range: 34.0-46.6 Hemoglobin 11.5 g/dL (Normal) Range: 11.1-15.9 RBC 4.89 {x10E6/uL} (Normal) Range: 3.77-5.28 WBC 8.5 {x10E3/uL} (Normal) Range: 3.4-10.8 11-Cgt-779880:26 VIRAL CULTURE (79273) Comments: throat; PATIENT NOT FASTINGPERFORMED BY: [address] [id number] Information: THROAT SRC: [id number] Viral Culture, General No virus isolated. (Normal) 64-Lsc-373556:26 Throat Culture (66337) Comments: PATIENT NOT FASTINGPERFORMED BY: [address] [id number] Information: SRC: Result 1 RRF (Normal) Comments: Routine respiratory jose Upper Respiratory Culture Final report (Normal) 27-Fkn-711774:44 Rapid Strep Test, Office (70031) Rapid Strep Test, Office Negative (Normal) 2-Usz-038657:24 Rapid Flu (18150 x 2) Influenza A Ag Negative (Normal) 15-Aug-20158:05 Celiac Disease Comphrehensive Comments: PATIENT NOT FASTINGPERFORMED BY: [place] 2404570 [facility] [id number] Information: 581243,I63739 Profile (63845) Immunoglobulin A, Qn, Serum 200 mg/dL (Normal) Range: 91-414 Endomysial Antibody IgA Negative (Normal) t-Transglutaminase (tTG) IgG 3 U/mL (Normal) Range: 0-5 Comments: Negative 0 - 5 Weak Positive 6 - 9 Positive >9 t-Transglutaminase (tTG) IgA <2 U/mL (Normal) Range: 0-3 Comments: Negative 0 - 3 Weak Positive 4 - 10 Positive >10 . Tissue Transglutaminase (tTG) has been identified as the endomysial antigen. Studies have demonstr- ated that endomysial IgA antibo dies have over 99% specificity for gluten sensitive enteropathy. Deamidated Gliadin Abs, IgG 5 {units} (Normal) Range: 0-19 Comments: Negative 0 - 19 Weak Positive 20 - 30 Moderate to Strong Positive >30 Deamidated Gliadin Abs, IgA 7 {units} (Normal) Range: 0-19 Comments: Negative 0 - 19 Weak Positive 20 - 30 Moderate to Strong Positive >30 :05 CBC with auto diff (94642) Comments: PATIENT NOT FASTINGPERFORMED BY: [facility] Xyaxzb3948 [facility] [id number] Hematology Comments: Note: (Normal) Comments: Verified by microscopic examination. Immature Grans (Abs) 0.0 {x10E3/uL} (Normal) Range: 0.0-0.1 Immature Granulocytes 0 % (Normal) Baso (Absolute) 0.0 {x10E3/uL} (Normal) Range: 0.0-0.2 Eos (Absolute) 0.2 {x10E3/uL} (Normal) Range: 0.0-0.4 Monocytes(Absolute) 0.5 {x10E3/uL} (Normal) Range: 0.1-0.9 Lymphs (Absolute) 1.8 {x10E3/uL} (Normal) Range: 0.7-3.1 Neutrophils (Absolute) 5.8 {x10E3/uL} (Normal) Range: 1.4-7.0 Basos 0 % (Normal) Eos 2 % (Normal) Monocytes 6 % (Normal) Lymphs 22 % (Normal) Neutrophils 70 % (Normal) Platelets 374 {x10E3/uL} (Normal) Range: 150-379 RDW 23.3 % (Abnormal) Range: 12.3-15.4 MCHC 30.6 g/dL (Abnormal) Range: 31.5-35.7 MCH 22.1 pg (Abnormal) Range: 26.6-33.0 MCV 72 fL (Abnormal) Range: 79-97 Hematocrit 37.3 % (Normal) Range: 34.0-46.6 Hemoglobin 11.4 g/dL (Normal) Range: 11.1-15.9 RBC 5.17 {x10E6/uL} (Normal) Range: 3.77-5.28 WBC 8.3 {x10E3/uL} (Normal) Range: 3.4-10.8 56-Irk-260668:54 Amylase (86957) Comments: PATIENT NOT FASTINGPERFORMED BY: LabShelby [place] 7451170 [facility] [id number] BY: [address] [id number] Amylase, Serum 47 U/L (Normal) Range: 31-124 68-Uge-911203:54 Lipase (52982) Comments: PATIENT NOT FASTINGPERFORMED BY: LabCoDillon V[place] 8312070 [facility] [id number] BY: [address] [id number] Lipase, Serum 34 U/L (Normal) Range: 0-59 27-Wdc-518039:54 HELICOBACTER PYLORI Comments: PATIENT NOT FASTINGPERFORMED BY: [place] 2404570 [facility] [id number] BY: [address] [id number] ANTIBODY PROFILE IgG, IgM, IgA (80933) H. pylori, IgG Abs <0.9 U/mL (Normal) Range: 0.0-0.8 Comments: Negative <0.9 Indeterminate 0.9 - 1.0 Positive >1.0 :54 Sed Rate Erythrocyte Comments: PATIENT NOT FASTINGPERFORMED BY: LabShel[place] 7451170 [facility] [id number] BY: [address] [id number] (52659) Sedimentation Rate-Westergren 53 mm/h (Abnormal) Range: 0-40 61-Pby-848588:54 Metabolic Panel, Comments: PATIENT NOT FASTINGPERFORMED BY: LabS[place] 7451170 [facility] [id number] BY: [address] [id number] Comprehensive (35798) ALT (SGPT) 14 [iU]/L (Normal) Range: 0-32 AST (SGOT) 15 [iU]/L (Normal) Range: 0-40 Alkaline Phosphatase, S 100 [iU]/L (Normal) Range: 39-117 Bilirubin, Total 0.5 mg/dL (Normal) Range: 0.0-1.2 A/G Ratio 1.4 (Normal) Range: 1.1-2.5 Globulin, Total 3.1 g/dL (Normal) Range: 1.5-4.5 Albumin, Serum 4.3 g/dL (Normal) Range: 3.5-5.5 Protein, Total, Serum 7.4 g/dL (Normal) Range: 6.0-8.5 Calcium, Serum 9.1 mg/dL (Normal) Range: 8.7-10.2 Carbon Dioxide, Total 24 mmol/L (Normal) Range: 18-29 Chloride, Serum 97 mmol/L (Normal) Range: 97-108 Potassium, Serum 3.7 mmol/L (Normal) Range: 3.5-5.2 Sodium, Serum 140 mmol/L (Normal) Range: 134-144 BUN/Creatinine Ratio 16 (Normal) Range: 9-23 eGFR If Africn Am 102 mL/min/1.73 (Normal) eGFR If NonAfricn Am 88 mL/min/1.73 (Normal) Creatinine, Serum 0.77 mg/dL (Normal) Range: 0.57-1.00 BUN 12 mg/dL (Normal) Range: 6-24 Glucose, Serum 91 mg/dL (Normal) Range: 65-99 11-Bga-941405:54 Soluble Transferrin Comments: PATIENT NOT FASTINGPERFORMED BY: [employer] [facility] [id number] BY: [employer] [id number] Receptor (51082) Soluble Transferrin Receptor 44.2 nmol/L (Abnormal) Range: 12.2-27.3 78-Mtq-856080:54 SPEP (80397) Comments: PATIENT NOT FASTINGPERFORMED BY: [employer] [facility] [id number] BY: [employer] [id number] Please note: SPRCS (Normal) Comments: Protein electrophoresis scan will follow via computer, mail, orcourier delivery. A/G Ratio 1.1 (Normal) Range: 0.7-2.0 Globulin, Total 3.6 g/dL (Normal) Range: 2.0-4.5 M-Isrrael Not Observed g/dL (Normal) Gamma Globulin 1.3 g/dL (Normal) Range: 0.5-1.6 Beta Globulin 1.2 g/dL (Normal) Range: 0.6-1.3 Kbzxr-3-Rbstfphv 0.9 g/dL (Normal) Range: 0.4-1.2 Sfkaw-9-Jhqtrgbu 0.2 g/dL (Normal) Range: 0.1-0.4 Albumin 3.8 g/dL (Normal) Range: 3.2-5.6 71-Zog-399395:54 UPEP (65810) Comments: PATIENT NOT FASTINGPERFORMED BY: [employer] [id number] BY: [address] [id number] Please note: SPRCS (Normal) Comments: Protein electrophoresis scan will follow via computer, mail, orcourier delivery. M-Isrrael, % Not Observed % (Normal) Gamma Globulin, U 34.1 % (Normal) Beta Globulin, U 30.6 % (Normal) Yaywf-9-Mixdchuu, U 14.3 % (Normal) Hvqgk-9-Bkscvetp, U 2.2 % (Normal) Albumin, U 18.8 % (Normal) Protein,Total,Urine 4.2 mg/dL (Normal) Range: 0.0-15.0 04-Eum-202021:54 CARLOS TEST, DIRECT Comments: PATIENT NOT FASTINGPERFORMED BY: [employer] [id number] BY: [address] [id number] (23966) Carlos', Direct Negative (Normal) 16-Hwc-491054:54 FOLIC ACID SERUM (75599) Comments: PATIENT NOT FASTINGPERFORMED BY: [facility]CardioDx[address] [id number] BY: [address] [id number] Folate (Folic Acid), Serum 13.4 ng/mL (Normal) Comments: A serum folate concentration of less than 3.1 ng/mL isconsidered to represent clinical deficiency. 41-Npa-608794:54 Methymalonic Acid, Serum Comments: PATIENT NOT FASTINGPERFORMED BY: [employer] AccessoriesPenn Medicine Princeton Medical CenterMotggl8999 [facility] [id number] BY: [place] [id number] (13904) Methylmalonic Acid, Serum 196 nmol/L (Normal) Range: 0-378 74-Ccb-464068:54 VITAMIN B-12 Comments: PATIENT NOT FASTINGPERFORMED BY: [employer] Vbxmzf7806 [facility] [id number] BY: [address] [id number] (CYANOCOBALAMIN) (87062) Vitamin B12 1299 pg/mL (Abnormal) Range: 211-946 98-Ghf-553429:54 RETICULOCYTE COUNT MANUL Comments: PATIENT NOT FASTINGPERFORMED BY: ValnevaPenn Medicine Princeton Medical CenterKczvdc1788 [facility] [id number] BY: [address] [id number] (03083) Reticulocyte Count 1.0 % (Normal) Range: 0.6-2.6 73-Jub-467873:54 LDH (LD) (LACTATE Comments: PATIENT NOT FASTINGPERFORMED BY: [employer] Dokxnn1250 [facility] [id number] BY: [address] [id number] DEHYDROGENASE) (41671) LDH 159 [iU]/L (Normal) Range: 119-226 25-Qys-158520:54 IRON BINDING CAPACITY Comments: PATIENT NOT FASTINGPERFORMED BY: [employer] AccessoriesP[facility] Medicine Princeton Medical CenterWrbipd1316 [facility] [id number] BY: [address] [id number] (TIBC) (84173) Iron Saturation 4 % (Abnormal) Range: 15-55 Iron, Serum 15 ug/dL (Abnormal) Range: 35-155 UIBC 363 ug/dL (Normal) Range: 150-375 Iron Bind.Cap.(TIBC) 378 ug/dL (Normal) Range: 250-450 62-Gqt-534027:54 FERRITIN (88552) Comments: PATIENT NOT FASTINGPERFORMED BY: [employer] [facility] Yet6370 [facility] [id number] BY: [employer] [id number] Ferritin, Serum 5 ng/mL (Abnormal) Range: 15-150 70-Jlt-989625:54 HAPTOGLOBIN (80861) Comments: PATIENT NOT FASTINGPERFORMED BY: [employer] LabCardioDxrp Xnzgoi0359 [facility] [id number] BY: [employer] [id number] Haptoglobin 282 mg/dL (Abnormal) Range: 34-200 23-Mno-909173:54 CBC, PLATELETS & AUT DIFF Comments: PATIENT NOT FASTINGPERFORMED BY: [employer] LabCardioDxrp Etddlp3789 [facility] [id number] BY: LabCardioDx[address] [id number] Information: 224597,P74564 (09520) Immature Grans (Abs) 0.0 {x10E3/uL} (Normal) Range: 0.0-0.1 Immature Granulocytes 0 % (Normal) Baso (Absolute) 0.0 {x10E3/uL} (Normal) Range: 0.0-0.2 Eos (Absolute) 0.1 {x10E3/uL} (Normal) Range: 0.0-0.4 Monocytes(Absolute) 0.7 {x10E3/uL} (Normal) Range: 0.1-0.9 Lymphs (Absolute) 1.9 {x10E3/uL} (Normal) Range: 0.7-3.1 Neutrophils (Absolute) 7.6 {x10E3/uL} (Abnormal) Range: 1.4-7.0 Basos 0 % (Normal) Eos 1 % (Normal) Monocytes 6 % (Normal) Lymphs 18 % (Normal) Neutrophils 75 % (Normal) Platelets 441 {x10E3/uL} (Abnormal) Range: 150-379 RDW 17.6 % (Abnormal) Range: 12.3-15.4 MCHC 29.8 g/dL (Abnormal) Range: 31.5-35.7 MCH 20.1 pg (Abnormal) Range: 26.6-33.0 MCV 67 fL (Abnormal) Range: 79-97 Hematocrit 32.5 % (Abnormal) Range: 34.0-46.6 Hemoglobin 9.7 g/dL (Abnormal) Range: 11.1-15.9 RBC 4.82 {x10E6/uL} (Normal) Range: 3.77-5.28 WBC 10.3 {x10E3/uL} (Normal) Range: 3.4-10.8 Plan of Care Name Dates Details Instructions BMI 38.0-38.9,adult : Follow up in 1 week Indication: BMI 38.0-38.9,adult Sore throat : Eprescribed prescriptions (G8553) Indication: Sore throat HTN (hypertension), benign : Follow up in 4 months Indication: HTN (hypertension), benign HTN (hypertension), benign : BP MONITORING - SELF Indication: HTN (hypertension), benign HTN (hypertension), benign : Reviewed Lab Indication: HTN (hypertension), benign HTN (hypertension), benign : Diet, Exercise, and Wt loss Indication: HTN (hypertension), benign HTN (hypertension), benign : HTN/CAD Red Flags Indication: HTN (hypertension), benign Elevated BP without diagnosis of hypertension : Follow up in 3 weeks Indication: Elevated BP without diagnosis of hypertension Elevated BP without diagnosis of hypertension : BP MONITORING - SELF Indication: Elevated BP without diagnosis of hypertension Elevated BP without diagnosis of hypertension : Diet, Exercise, and Wt loss Indication: Elevated BP without diagnosis of hypertension Elevated BP without diagnosis of hypertension : HTN/CAD Red Flags Indication: Elevated BP without diagnosis of hypertension Non-smoker : Eprescribed prescriptions (G8553) Indication: Non-smoker Hypercholesteremia (Renamed from Hypercholesterolemia) : Cholesterol mgmt Indication: Hypercholesteremia (Renamed from Hypercholesterolemia) Elevated BP without diagnosis of hypertension : Reviewed Lab Indication: Elevated BP without diagnosis of hypertension Elevated BP without diagnosis of hypertension : Follow up in 2 months Indication: Elevated BP without diagnosis of hypertension Elevated BP without diagnosis of hypertension : BP MONITORING - SELF Indication: Elevated BP without diagnosis of hypertension Elevated BP without diagnosis of hypertension : Diet, Exercise, and Wt loss Indication: Elevated BP without diagnosis of hypertension Elevated BP without diagnosis of hypertension : Follow up in 1 month Indication: Elevated BP without diagnosis of hypertension Elevated BP without diagnosis of hypertension : HTN/CAD Red Flags Indication: Elevated BP without diagnosis of hypertension GERD : GERD Education Indication: GERD Elevated BP without diagnosis of hypertension : BP MONITORING - SELF Indication: Elevated BP without diagnosis of hypertension Sore throat : Eprescribed prescriptions (G8553) Indication: Sore throat Abnormal lung sounds : Continue Current Prescription(s) Indication: Abnormal lung sounds Pneumonia, bacterial : Reviewed Diagnostic Tests Indication: Pneumonia, bacterial Pneumonia, bacterial : Continue Current Prescription(s) Indication: Pneumonia, bacterial Abnormal lung sounds : Solu Medrol Injection/ Education Indication: Abnormal lung sounds BMI 40.0-44.9, adult : Follow up in 2 weeks Indication: BMI 40.0-44.9, adult Bronchitis : *URI Treatment Indication: Bronchitis Bronchitis : *URI Symptoms Indication: Bronchitis Bronchitis : *Antibiotic Usage Education - Female Indication: Bronchitis BMI 40.0-44.9, adult : Eprescribed prescriptions (G8553) Indication: BMI 40.0-44.9, adult Elevated blood pressure reading : Eprescribed prescriptions (G8553) Indication: Elevated blood pressure reading Acute non-recurrent sinusitis, unspecified location : Eprescribed prescriptions (G8553) Indication: Acute non-recurrent sinusitis, unspecified location Acute non-recurrent sinusitis, unspecified location : *URI Symptoms Indication: Acute non-recurrent sinusitis, unspecified location Acute non-recurrent sinusitis, unspecified location : *Antibiotic Usage Education - Female Indication: Acute non-recurrent sinusitis, unspecified location Anxiety : Follow up in 1 month Indication: Anxiety Anxiety : Follow up in 2 weeks Indication: Anxiety Anxiety : depression/anxiety treatment Indication: Anxiety Plantar fasciitis, left : Eprescribed prescriptions (G8553) Indication: Plantar fasciitis, left DIARRHEA (Renamed from D (diarrhea)) : Follow up in 1 month Indication: DIARRHEA (Renamed from D (diarrhea)) DIARRHEA (Renamed from D (diarrhea)) : Eprescribed prescriptions (G8553) Indication: DIARRHEA (Renamed from D (diarrhea)) Non-smoker : Follow up in 1 week Indication: Non-smoker GERD : Follow up if no improvement or if symptoms worsen Indication: GERD GERD : GERD Education Indication: GERD Acute generalized abdominal pain (Renamed from Abdominal pain, acute, generalized) : *Abd Pain Red Flags Indication: Acute generalized abdominal pain (Renamed from Abdominal pain, acute, generalized) DIARRHEA (Renamed from D (diarrhea)) : *Abd Pain Red Flags Indication: DIARRHEA (Renamed from D (diarrhea)) DIARRHEA (Renamed from D (diarrhea)) : Diarrhea instructions Indication: DIARRHEA (Renamed from D (diarrhea)) ANEMIA, UNSPECIFIED : Anemia: diagnosis and treatment Indication: ANEMIA, UNSPECIFIED Non-smoker : Eprescribed prescriptions (G8553) Indication: Non-smoker Planned Observations IRON BINDING CAPACITY (TIBC) ([id number])Indication: Fatigue On: 51-Iwd-134290:34 Request LEAD ([id number])Indication: Fatigue On: 82-Cre-274978:34 Request FERRITIN ([id number])Indication: Fatigue On: 63-Ota-623546:34 Request IRON ([id number])Indication: Fatigue On: 07-Jyl-910672:34 Request METABOLIC PANEL, COMPREHENSIVE ([id number])Indication: HTN (hypertension), benign On: :56 Request LIPOPROTEIN, BLD, BY NMR ([id number])Indication: HTN (hypertension), benign On: :56 Request CBC W/AUTO DIFF WBC ([id number])Indication: HTN (hypertension), benign On: :56 Request OVA & PARASITE DIR SMEAR ([id number])Indication: DIARRHEA (Renamed from D (diarrhea)) On: :41 Request OCCULT BLOOD FECES SCREEN ([id number])Indication: DIARRHEA (Renamed from D (diarrhea)) On: :41 Request LEUKOCYTE COUNT, FECAL ([id number])Indication: DIARRHEA (Renamed from D (diarrhea)) On: :41 Request C-DIFFICILE, STOOL ([id number])Indication: DIARRHEA (Renamed from D (diarrhea)) On: :41 Request SHANNAN CULTURE-STOOL ([id number])Indication: DIARRHEA (Renamed from D (diarrhea)) On: 65-Pyw-440999:41 Request FECAL OCCULT- Tubes sent home ([id number])Indication: ANEMIA, UNSPECIFIED On: 15-Lan-182498:40 Request IRON ([id number])Indication: ANEMIA, UNSPECIFIED On: 80-Hfc-402654:40 Request Planned Encounters Medical; 4 Month FU - On: 14-Aug-2018 9:30 [facility] Billie Laurent DO, DO, Kathleen Planned Procedures MAMMOGRAM BREAST BILATERAL On: 11-May-2018 Intent SCREENING DIGITAL ([id number])By: Billie Laurent DO, DO, Kathleen ELECTROCARDIOGRAM, COMPLETE (ECG) On: 20-Apr-2018 Intent ([id number])By: Aimee Rivera Comments: nsr no avute chg ELECTROCARDIOGRAM, COMPLETE (ECG) On: 30-Sep-2017 Intent ([id number])By: Billie Laurent DO Comments: nsr poor R wave progression no acute chg Billie Laurent DO Radiology - Chest- PA and LatBy: On: 24-Sep-2017 Intent Billie Laurent DO, DO, Comments: follow on abnormality 08/31 Billie Solu- Medrol Injection, 125mg On: 27-Aug-2017 Intent ([id number])By: Billie Laurent DO Comments: [id number] vialMLONG Billie Laurent DO Aerosol Treatment ([id number])By: On: 27-Aug-2017 Intent Billie Laurent DO, DO, Comments: less velcro noise more a/e less reactive cough Billie Solu -Medrol Injection, 125 mg On: 25-Aug-2017 Intent ([id number])By: Billie Laurent DO Comments: solumedrol 125mg injectionlot: [id number]: 12/2019R 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 Billie Laurent DO Rocephin Injection, 2 Gram On: 25-Aug-2017 Intent ([id number])By: Billie Laurent DO Comments: rochephin 2gm injection diluted in 4.2cc of 2% lidocainelot: [id number]: 05/2019L and R GM, 1gm in bothpt tolerated wellAD 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 Billie Laurent DO Aerosol Treatment ([id number])By: On: 25-Aug-2017 Intent Billie Laurent DO DO, Comments: more a;e-- left side clearly rhonhci and exp wheeeze other side that was quiet now more a/e -- is wheezy in RLL too Billie Radiology - Chest- PA and LatBy: On: 25-Aug-2017 Intent Billie Laurent DO DO, Billie Aerosol Treatment ([id number])By: Rose On: 19-Aug-2017 Intent Leslee LOZADA Spirometry ([id number])By: Rose LOZADA, On: 19-Aug-2017 Intent Leslee Villafuerte Comments: mild restriction ELECTROCARDIOGRAM, COMPLETE (ECG) On: 28-Sep-2015 Intent ([id number])By: Fermin Oviedo MD Radiology - Foot - LeftBy: Ivelisse On: 28-Sep-2015 Intent Fermin PALAFOX Planned Medications INJECTION, CEFTRIAXONE SODIUM, PER 250 MG Ordered: 25-Aug-2017 Pending Billie Laurent DO DO, Billie INJECTION, METHYLPREDNISOLONE SODIUM SUCCINATE, UP TO 125 MG Ordered: 25-Aug-2017 Pending Mehran DO, Billie Mehran DO, Billie INJECTION, METHYLPREDNISOLONE SODIUM SUCCINATE, UP TO 125 MG Ordered: 27-Aug-2017 Pending Mehran DO, Billie Mehran DO, Billie Instructions Name Dates Details Sore throat : How to access health information online Indication: Sore throat Sore throat : How to access health information online Indication: Sore throat Sore throat : How to access health information online - Detail Indication: Sore throat Sore throat : Patient Instructions Indication: Sore throat HTN (hypertension), benign : Patient Instructions Indication: HTN (hypertension), benign Non-smoker : How to access health information online Indication: Non-smoker Non-smoker : How to access health information online - Detail Indication: Non-smoker Non-smoker : Patient Instructions Indication: Non-smoker Non-smoker : How to access health information online Indication: Non-smoker Non-smoker : How to access health information online - Detail Indication: Non-smoker Non-smoker : Patient Instructions Indication: Non-smoker Elevated BP without diagnosis of hypertension : Patient Instructions Indication: Elevated BP without diagnosis of hypertension Non-smoker : How to access health information online Indication: Non-smoker Non-smoker : Patient Instructions Indication: Non-smoker Sore throat : How to access health information online Indication: Sore throat Sore throat : How to access health information online - Detail Indication: Sore throat Sore throat : Patient Instructions Indication: Sore throat Non-smoker : How to access health information online Indication: Non-smoker Non-smoker : How to access health information online - Detail Indication: Non-smoker Non-smoker : Patient Instructions Indication: Non-smoker Non-smoker : How to access health information online Indication: Non-smoker Non-smoker : Patient Instructions Indication: Non-smoker BMI 40.0-44.9, adult : How to access health information online Indication: BMI 40.0-44.9, adult BMI 40.0-44.9, adult : How to access health information online - Detail Indication: BMI 40.0-44.9, adult BMI 40.0-44.9, adult : Patient Instructions Indication: BMI 40.0-44.9, adult BMI 40.0-44.9, adult : How to access health information online Indication: BMI 40.0-44.9, adult BMI 40.0-44.9, adult : How to access health information online - Detail Indication: BMI 40.0-44.9, adult BMI 40.0-44.9, adult : Patient Instructions Indication: BMI 40.0-44.9, adult Elevated blood pressure reading : How to access health information online Indication: Elevated blood pressure reading Elevated blood pressure reading : How to access health information online - Detail Indication: Elevated blood pressure reading Elevated blood pressure reading : Patient Instructions Indication: Elevated blood pressure reading Acute non-recurrent sinusitis, unspecified location : Patient Instructions Indication: Acute non-recurrent sinusitis, unspecified location Plantar fasciitis, left : How to access health information online Indication: Plantar fasciitis, left Plantar fasciitis, left : How to access health information online - Detail Indication: Plantar fasciitis, left Plantar fasciitis, left : Patient Instructions Indication: Plantar fasciitis, left DIARRHEA (Renamed from D (diarrhea)) : How to access health information online Indication: DIARRHEA (Renamed from D (diarrhea)) DIARRHEA (Renamed from D (diarrhea)) : How to access health information online - Detail Indication: DIARRHEA (Renamed from D (diarrhea)) DIARRHEA (Renamed from D (diarrhea)) : Patient Instructions Indication: DIARRHEA (Renamed from D (diarrhea)) Non-smoker : How to access health information online Indication: Non-smoker Non-smoker : How to access health information online - Detail Indication: Non-smoker Non-smoker : Patient Instructions Indication: Non-smoker Encounters Lab Order On: 10-Jun-2018 16:32 Encounter Diagnosis: Fatigue End: 10-Jun-2018 16:36 [facility] Office Visit On: 09-Jun-2018 10:11 Encounter Reason: Sore Throat - Symptoms include sore throat, postnasal drainage and chills. The symptoms are symmetrical. Presenting symptoms included headache, fever and chills., End: 09-Jun-2018 11:09 [ADDITIONAL REASON] Flu Like Symptoms - Symptoms include fever, chills, nasal congestion, dry cough, facial pressure and headache. Onset was 3 week(s) ago. Associated symptoms include fever and chills. , [ADDITIONAL REASON] Nausea - Note for Nausea: Started lsinopril before trip to [place] then BP too low, then dose decreased to 1/2 bid. Two days later becaue nauseated adn sick to stomach and stomach hurting, with normal BM. Then sore throat. Worsening with fever. 100.9. Headache. On day 3 after fever from throat to nose, took advil cold and sinus, vit c and airborne and cold ezz. Then nose running .Took amoxicillin 7 days and finished 4 days ago. Encounter Diagnosis: BMI 38.0- 38.9,adult, Non-smoker, Sore throat, Candidiasis, mouth, Fatigue, HTN (hypertension), benign [facility] Annotation/Addendum On: 11-May-2018 13:23 Encounter Diagnosis: Screening mammogram, encounter for End: 11-May-2018 13:25 [facility] Office Visit On: 11-May-2018 9:25 Encounter Reason: Follow up Hypertension, [ADDITIONAL REASON] Follow up Meds - The patient feels well with minor complaints. Patient has been compliant with instructions. Current medication use: experiencing side effects (making it to low). Nu End: 11-May-2018 9:59 trition: balanced diet. , [ADDITIONAL REASON] Follow up tests - Diagnostic tests include other (lsb). Encounter Diagnosis: Elevated BP without diagnosis of hypertension, HTN (hypertension), benign, Nutritional counseling [facility] Office Visit On: 20-Apr-2018 9:36 Encounter Reason: Follow up Hypertension - The symptoms have been associated with anxiety and family history of hypertension.Encounter Diagnosis: BMI 38.0- 38.9,adult, Non-smoker, End: 20-Apr-2018 13:43 Need for prophylactic vaccination and inoculation against influenza (Renamed from Need for immunization against influenza), Influenza vaccination declined (Renamed from Refused influenza vaccine), Elevated BP without diagnosis of hypertension, Stress reaction [facility] Office Visit On: 04-Nov-2017 9:08 Encounter Reason: Follow up HypertensionEncounter Diagnosis: BMI 40.0-44.9, adult, Non-smoker, Elevated BP without diagnosis of hypertension, Hypercholesteremia (Renamed from Hypercholesterolemia), Nutritional counseling End: 04-Nov-2017 9:53 [facility] Office Visit On: 30-Sep-2017 8:50 Encounter Reason: Follow up for chronic medical issues - The patient does not feel well (still has cold), has decreased energy level and is sleeping well. Patient has been compliant with instructions. Current medication End: 30-Sep-2017 14:37 use: no side effects and compliant with dosing regimen. Patient sleeps 6 hours per night. Nutrition: balanced diet and no supplemental vitamins & iron. The medical issues the patient is following up for include All identified problems below, depression, gastric reflux and other.Encounter Diagnosis: BMI 40.0-44.9, adult, Non-smoker, Elevated BP without diagnosis of hypertension, GERD (530.81), ANEMIA, UNSPECIFIED (285.9), Psoriasis, Sciatica of right side [facility] Office Visit On: 24-Sep-2017 10:41 Encounter Reason: Sore Throat - No changes in management were made at the last visit. Symptoms include sore throat, swollen glands and fever. The symptoms are symmetrical. There is no radiation. The patient describes the End: 24-Sep-2017 13:21 pain as aching. Onset was sudden 3 day(s) ago. The symptoms occur constantly. The patient describes this as moderate in severity and worsening.Encounter Diagnosis: BMI 40.0-44.9, adult, Non-smoker, Sore throat, Pneumonia, bacterial [facility] Office Visit On: 02-Sep-2017 10:39 Encounter Reason: Follow up acute care visit - The patient feels the same. Patient has been compliant with instructions.Encounter Diagnosis: BMI 40.0-44.9, adult, Non-smoker, Cough, Pneumonia, bacterial, Abnormal lung sounds End: 02-Sep-2017 11:32 [facility] Office Visit On: 27-Aug-2017 10:09 Encounter Reason: Follow up acute care visit - The patient does not feel well. Patient has been compliant with instructions. Current medication use: no side effects and compliant with dosing regimen.Encounter Diagnosis: BMI 40.0-44.9, adult, End: 27-Aug-2017 12:23 Non-smoker, Pneumonia, bacterial, Abnormal lung sounds, Cough [facility] Office Visit On: 25-Aug-2017 11:58 Encounter Reason: Follow up acute care visit - The patient does not feel well. Patient has been compliant with instructions. Current medication use: no side effects and compliant with dosing regimen.Encounter Diagnosis: Non-smoker, End: 25-Aug-2017 15:38 BMI 40.0-44.9, adult, Cough, Elevated BP without diagnosis of hypertension, Abnormal lung sounds, Pneumonia, bacterial [facility] Office Visit On: 19-Aug-2017 9:47 Encounter Reason: Cold Symptoms - Symptoms include productive cough. Onset was 1 month(s) ago. Note for Cold symptoms: Had in Jul and thereafter all family got sick, but recent renewal of cough, felt like racin End: 19-Aug-2017 11:04 g heart, had taken advil cold and sinus and mucinex. Fever last nightEncounter Diagnosis: Non-smoker, BMI 40.0-44.9, adult, Cough, Elevated BP without diagnosis of hypertension, Bronchitis [facility] Office Visit On: 23-Jan-2017 11:35 Encounter Reason: Nurse procedure visit - The symptoms have been associated with other (bp check - will rto next week to check again and watch caffeine, sodium and drink water and physical activity).Encounter Diagnosis: End: 23-Jan-2017 13:12 Elevated blood pressure reading [facility] Office Visit On: 10-Nov-2015 9:28 Encounter Reason: Upper Respiratory Infection (URI) - No changes in management were made at the last visit. Symptoms include runny nose, sore throat and dry cough. Onset was sudden 9 day(s) ago. The symptoms occur consta End: 10-Nov-2015 10:35 ntly. The patient describes this as moderate in severity and worsening. Associated symptoms include ear pain and headache. Current treatment includes non- prescription cold medication.Encounter Diagnosis: Acute non-recurrent sinusitis, unspecified location, Retracted ear drum, bilateral [facility] Office Visit On: 12-Oct-2015 7:17 Encounter Reason: Follow up acute care visit - The patient does not feel well (Ever since Friday,I am yawning all day and so sleepy and wonder if from the medication cause I just want to go to bed and normally, I am a ni End: 12-Oct-2015 15:56 ght owl). Current medication use: experiencing side effects (fatigue).Encounter Diagnosis: Anxiety, ANEMIA, UNSPECIFIED (285.9), Plantar fasciitis, left, GERD (530.81), BMI 40.0-44.9, adult, Abnormal CXR [facility] Office Visit On: 28-Sep-2015 7:19 Encounter Diagnosis: ANEMIA, UNSPECIFIED (285.9), GERD (530.81), Acute generalized abdominal pain (Renamed from Abdominal pain, acute, generalized), Diverticular disease, Plantar fasciitis, left, BMI 40.0-44.9, adult, Anxiety End: 28-Sep-2015 13:59 [facility] Phone Encounter On: 21-Aug-2015 10:59 Encounter Diagnosis: ANEMIA, UNSPECIFIED (285.9) End: 21-Aug-2015 17:43 [facility] Office Visit On: 20-Jul-2015 7:54 Encounter Reason: Follow up tests - Date: (06.29.15).Encounter Diagnosis: GERD (530.81), DIARRHEA (Renamed from D (diarrhea)), Knee pain, chronic, left, ANEMIA, UNSPECIFIED (285.9), End: 20-Jul-2015 20:58 Acute generalized abdominal pain (Renamed from Abdominal pain, acute, generalized), History of migraine headaches, Psoriasis [facility] Phone Encounter On: 04-Jul-2015 14:47 Encounter Diagnosis: Unspecified Diagnosis End: 21-Aug-2015 18:30 [facility] Office Visit On: 29-Jun-2015 9:37 Encounter Reason: Transition into care - The patient is transitioning into care from another physician (Dr Haley Us, April 2015) and a summary of care was not provided (paitent is aware we need to sign the records release) ., End: 29-Jun-2015 22:13 [ADDITIONAL REASON] Abdominal pain - The pain has been occurring for 4 days. Encounter Diagnosis: Non-smoker, ANEMIA, UNSPECIFIED (285.9), DIARRHEA (Renamed from D (diarrhea)), Acute generalized abdominal pain (Renamed from Abdominal pain, acute, generalized), GERD (530.81), Hiatal hernia, Diverticular disease [facility] Payers Adriane DAVIS/Meseret Michel; bronwyn guarantor
--- OUTSIDE RECORDS SUMMARY | 2018-10-05 22:57 | XMS RPT_ITS | Continuity of Care Document ---
:1960 Author Organization [facility] Address [address] [facility] [address] [place] [address] Phone Care Team Providers Name Role Phone Billie Laurent DO Unavailable Dr. Sandoval Enrique Unavailable Bianca Fonseca Unavailable Dr. Juan Mercer Unavailable Priscila Fields Unavailable Unavailable Kathy Bravo LPN Unavailable Unavailable Aimee Rivera Unavailable Unavailable Aakash Butt Unavailable Unavailable Unavailable Unavailable Problems Name Dates [...] needles a nd procedures, anxiety with colonoscopy.Works [employer],job changes, 23 yr old daughter has DOWNS and lives with her .Had counselling for PTSD after daughter was born. Status: Active BMI 38.0-38.9,adult (Z68.38, V85.38) Status: Active Candidiasis, mouth (B37.0, 112.0) Status: Active Deliveries (Parity) Comments: 2. Status: Active Diverticular disease (K57.90, 562.10) Comments: based on CT scan abdomen /pelvis(03-31-15).High fiber diet Status: Active Drug reaction, initial encounter (T50.905A, E947.9) Status: Active Elevated blood pressure reading (R03.0, [...] of the arms and legs. Status: Active Rash (R21, 782.1) Status: Active Sciatica of right side (M54.31, 724.3) Comments: rx massage therapy gfivne Status: Active Screening mammogram, encounter for (Z12.31, V76.12) Status: Active Sore throat (J02.9, 462) Status: Active Sore throat (J02.9, 462) Status: Active Stress reaction (F43.0, 308.9) Status: Active Unspecified Diagnosis Status: Active Unspecified Diagnosis Status: Active Medications Name Dates Details AmLODIPine Besylate 5 MG Oral Tablet 1 (one) Tablet qd for 0 days Quantity: 30 {Tablet} Refills: 2 Ordered:06-Jul-2018 Willy Laurent DO, DO, Kathleen Start : 06-Jul-2018 Active PriLOSEC 20 MG Oral Capsule Delayed [...] 30 days Quantity: 1 {Tube} Refills: 0 Ordered:06-Jul-2018 Premlashondaroderick Priscila Start : 29-Jun-2018 End : 06-Jul-2018 Inactive Clotrimazole 10 MG Mouth/Throat Robert 1 (one) Robert 5x daily for 10 days Quantity: 50 {Robert} Refills: 0 Ordered:09-Jun-2018 Rose NEVILLELeslee Start : 09-Jun-2018 End : 19-Jun-2018 Inactive EXCEDRIN MIGRAINE, [id number] (Oral Tablet) 1 prn for migraines (250-250-65 [...] (Oral Tablet) 1 prn (500 MG) Inactive Lisinopril-Hydrochlorothiazide 10-12.5 MG Oral Tablet 1/2 Tablet bid for 60 days Quantity: 60 {Tablet} Refills: 0 Ordered:06-Jul-2018 Willy Laurent DO, DO, Kathleen Start : 06-Jul-2018 End : 06-Jul-2018 Discontinued Comments:rash from hctz most likely Allergies and Adverse Reactions Name Dates Details [...] loose stools Status: Resolved as of 25-Aug-2017 BMI 40.0-44.9, adult (Z68.41, V85.41) Comments: DIET [...] week.Can join [employer] program me with [facility] for nutrition counselling. BMI 40.46.Cost 300 $ so does not want to spend the money.Does not exercise Status: Inactive as of 06-Jul-2018 Bronchitis (J40, 490) Status: Inactive as of [...] and Lateral Result: Comments: See Note; NOTES: [facility] [address] [place] [address] Chest PA and Lateral MR#: [id number] Acct: [id number] Name: ANABELLA MICHEL Rep #: [id number] : 1960 F 57 From: Madi Sheikh DO PCP: Billie Laurent DO Status: REG CLI Study: Chest PA and Lateral Date of Exam: 09/24/17 Exam# [id number] Ordering Dr: Billie Laurent DO STUDY: X-RAY [...] Service support , CC: Billie Laurent DO Operations Agent: Signed 25-Aug-2017 Chest PA and Lateral Result: Comments: See Note; NOTES: [facility] [address] [place] [address] Chest PA and Lateral MR#: [id number] Acct: [id number] Name: MICHEL,ANABELLA Gilbert Rep #: [id number] : 1960 F 57 From: Tato Knox MD PCP: Billie Laurent DO Status: REG CLI Study: Chest PA and Lateral Date of Exam: 08/25/17 Exam# [id number] Ordering Dr: Billie Laurent DO STUDY: X- [...] Tato Knox MD at 14:06 EST Tel [phone], Service support , CC: Billie Laurent DO Operations Agent: Signed 16-Feb-2016 Bilat Scrn Digital AND CAD Result: Comments: See Note; NOTES: [facility] [address] [place] [address] Verdana 4d Bilat Scrn Digital AND CAD MR#: [id number] Acct: [id number] Name: ANABELLA MICHEL Rep #: [id number] : 1960 F 55 From: Tato Knox MD PCP: Fermin Oviedo Status: REG CLI Study: Bilat Scrn Digital AND CAD Date of Exam: 02/16/16 Exam# [id number] Ordering Dr: Bertha Richardson MD MAMMOGRAPHY - BILATERAL SCREENING REASON FOR EXAM: Female, 55 years old. Routine annual screening examination. PERTINENT HISTORY: Grandmother with breast cancer. TECHNIQUE: Digital bilateral breast omari (3D mammographic acquisition) in the CC and MLO projections. 2-D mediolateral oblique (MLO) and craniocaudad (CC) views of both breasts were obtained. CAD: Full Field Digital Mammography wi th Computer Added Detection was performed. COMPARISON: Comparison [...] delay biopsy of a clinically suspicious abnormality. [id number] Electronically Signed: Tato Knox MD a t 15:42 EDT Tel [phone], Service support [phone], CC: Fermin Oviedo; Sima Richardson MD Operations Agent: Signed Family History Unknown Family Member Name Dates Details Father Comments: diabestes, htn Status: Active Mother Comments: ulcerated colitis Status: Active Social History Name Dates Details No Caffeine Use Status: Active No Drug Use Status: Active Non Drinker/No Alcohol Use Status: Active Non Smoker/No Tobacco Use Status: Active Vital Signs Date Test Result Details 66-Yab-451651:35 Temperature 98.3 f Comments: Method: Temporal Pulse 75 /min Comments: Pattern: Regular Respiration Rate 16 /min Comments: Pattern: Unlabored O2 SAT 98 % Comments: Room air BP Systolic 112 mm[Hg] Comments: Patient Position: Sitting; Cuff Location: Left Arm; Cuff Size: Standard BP Diastolic 70 mm[Hg] Comments: Patient Position: Sitting; Cuff Location: Left Arm; Cuff Size: Standard Weight 211.125 lb Height 62 in Body Mass Index Calculated 38.61 kg/m2 Body Surface Area Calculated 1.96 m2 :17 Temperature 97.5 f Pulse 83 /min Comments: [...] kg/m2 Body Surface Area Calculated 1.96 m2 :31 Comments: her machine 132/82 Pulse 88 /min [...] kg/m2 Body Surface Area Calculated 2 m2 :35 Comments: 142/102 catapress given 0.1mg at 11:40 [...] kg/m2 Body Surface Area Calculated 2 m2 :43 Pulse 106 /min Comments: Pattern: Regular Respiration [...] Weight 221.2 lb :51 Comments: 128/78, 89 dbhas504/72, 92 gillfvf193/68, 95 standing Temperature 98.7 f Pulse 90 /min Comments: Pattern: Regular Respiration Rate 16 /min Comments: Pattern: Unlabored O2 SAT 99 % Comments: Room air BP Systolic 128 mm[Hg] Comments: Patient Position: Sitting; Cuff Location: Left Arm; Cuff Size: Standard BP Diastolic 80 mm[Hg] Comments: Patient Position: Sitting; Cuff Location: Left Arm; Cuff Size: Standard Weight 216 lb Results Date Description Value Details :35 Renal function Panel (09553) Comments: PATIENT NOT FASTINGPERFORMED BY: [facility] Qpjrgr3922 [facility] [id number] Albumin 4.1 g/dL (Normal) Range: 3.5-5.5 Phosphorus [...] 6-24 Glucose 100 mg/dL (Abnormal) Range: 65-99 78-Zpf-749084:35 CBC & PLATELETS (AUTO) Comments: PATIENT NOT FASTINGPERFORMED BY: Echodio Khan [facility]borOviceversaO[facility] [id number] (90711) Platelets 400 {x10E3/uL} (Abnormal) Range: 150-379 RDW 18.3 % (Abnormal) Range: 12.3-15.4 MCHC 32.5 g/dL (Normal) Range: 31.5-35.7 MCH 23.6 pg (Abnormal) Range: 26.6-33.0 MCV 73 fL (Abnormal) Range: 79-97 Hematocrit 34.5 % (Normal) Range: 34.0-46.6 Hemoglobin 11.2 g/dL (Normal) Range: 11.1-15.9 RBC 4.74 {x10E6/uL} (Normal) Range: 3.77-5.28 WBC 9.8 {x10E3/uL} (Normal) Range: 3.4-10.8 26-Nmh-862607:35 EBV Panel (46450) Comments: PATIENT NOT FASTINGPERFORMED BY: [employer] Mpcjmb8931 [facility] [id number] Interpretation: SPRCS (Normal) Comments: EBV Interpretation Chart [...] <36.0 Equivocal 36.0 - 43.9 Positive >43.9 54-Iiq-834915:20 Rapid Strep Test, Office (57762) Comments: neg Rapid Strep Test, Office Negative (Normal) 88-Enb-232716:03 THROAT CULTURE (40916) Comments: PATIENT NOT FASTINGPERFORMED BY: CloudvuO[facility] Hospital [id number] Information: SRC:TH Result 1 RRF (Normal) Comments: Routine respiratory jose Upper Respiratory Culture Final report (Normal) 8-Zib-693572:55 Microscopic Examination Comments: PATIENT NOT FASTINGPERFORMED BY: [employer]so[employer] NetstoryAt[facility]ly [id number] Bacteria None seen (Normal) Mucus Threads Present (Normal) Epithelial Cells (non renal) None seen {/hpf} (Normal) Range: 0 - 10 RBC 0-2 {/hpf} (Normal) Range: 0 - 2 WBC 0-5 {/hpf} (Normal) Range: 0 - 5 1-Khu-900169:55 URINALYSIS, W/ MICRO (98698) Comments: PATIENT NOT FASTINGPERFORMED BY: [employer] Khan NetstoryAt[facility] [id number] Microscopic Examination See below: (Normal) Comments: Microscopic was indicated and was performed. Nitrite, Urine Negative (Normal) Urobilinogen,Semi-Qn 0.2 mg/dL (Normal) Range: 0.2-1.0 Bilirubin Negative (Normal) Occult Blood Negative (Normal) Ketones Negative (Normal) Glucose Negative (Normal) Protein Negative (Normal) WBC Esterase 1+ (Abnormal) Appearance Clear (Normal) Urine-Color Yellow (Normal) pH 6.5 (Normal) Range: 5.0-7.5 Specific [place] 1.016 (Normal) Range: 1.005-1.030 7-Wxn-321900:55 METABOLIC PANEL, COMPREHENSIVE Comments: PATIENT NOT FASTINGPERFORMED BY: LabCoSaint James HospitalOklyrs6677 [facility] [id number] (75494) ALT (SGPT) 14 [iU]/L (Normal) Range: 0-32 [...] 6-24 Glucose 89 mg/dL (Normal) Range: 65-99 2-Biw-577817:55 CBC W/AUTO DIFF WBC (01819) Comments: PATIENT NOT FASTINGPERFORMED BY: [facility]Co Sobbxa6907 [facility] [id number] Immature Grans (Abs) 0.0 {x10E3/uL} (Normal) Range: [...] 3.77-5.28 WBC 8.5 {x10E3/uL} (Normal) Range: 3.4-10.8 08-Fus-741450:45 Microscopic Examination Comments: PATIENT WAS FASTINGPERFORMED BY: LabCoSaint James HospitalRdhxmr0466 [facility] [id number] Bacteria Few (Normal) Mucus Threads Present (Normal) Epithelial Cells (non renal) 0-10 {/hpf} (Normal) Range: 0 - 10 RBC None seen {/hpf} (Normal) Range: 0 - 2 WBC 0-5 {/hpf} (Normal) Range: 0 - 5 61-Hka-926685:45 URINALYSIS, W/ MICRO (12229) Comments: PATIENT WAS FASTINGPERFORMED BY: [facility]6370 [facility] [id number] Microscopic Examination See below: (Normal) Comments: Microscopic was indicated and was performed. Nitrite, Urine Negative (Normal) Urobilinogen,Semi-Qn 0.2 mg/dL (Normal) Range: 0.2-1.0 Bilirubin Negative (Normal) Occult Blood Negative (Normal) Ketones Trace (Abnormal) Glucose Negative (Normal) Protein Negative (Normal) WBC Esterase Trace (Abnormal) Appearance Clear (Normal) Urine-Color Yellow (Normal) pH 6.0 (Normal) Range: 5.0-7.5 Specific [place] 1.014 (Normal) Range: 1.005-1.030 27-Ldv-025622:45 MICROALBUMIN: CREATININE RATIO Comments: PATIENT WAS FASTINGPERFORMED BY: [facility]areAsc[facility] Hospital6370 [facility] [id number] (20286) AND (19319) Alb/Creat Ratio 8.4 {mg/g_creat} (Normal) Range: 0.0-30.0 Albumin, Urine 3.9 ug/mL (Normal) Creatinine, Urine 46.4 mg/dL (Normal) 83-Skw-382323:45 METABOLIC PANEL, COMPREHENSIVE Comments: PATIENT WAS FASTINGPERFORMED BY: [facility]6370 [facility] [id number] (47341) ALT (SGPT) 18 [iU]/L (Normal) Range: 0-32 [...] Glucose, Serum 88 mg/dL (Normal) Range: 65-99 96-Rki-373409:45 LIPID PANEL (13187) Comments: PATIENT WAS FASTINGPERFORMED BY: [employer]70 [facility] [id number] LDL/HDL Ratio 2.3 {ratio_units} (Normal) Range: 0.0-3.2 Comments: LDL/HDL Ratio Men Women 1/2 Avg.Risk 1.0 1.5 Av g.Risk 3.6 3.2 2X Avg.Risk 6.2 5.0 3X Avg.Risk 8.0 6.1 LDL Cholesterol Calc 146 mg/dL (Abnormal) Range: 0-99 VLDL Cholesterol [place] 17 mg/dL (Normal) Range: 5-40 HDL Cholesterol 63 mg/dL (Normal) Triglycerides 83 mg/dL (Normal) Range: 0-149 Cholesterol, Total 226 mg/dL (Abnormal) Range: 100-199 44-Ypt-250749:45 CBC W/AUTO DIFF WBC (49854) Comments: PATIENT WAS FASTINGPERFORMED BY: [employer]70 [facility] HealthO[facility] [id number] Immature Grans (Abs) 0.0 {x10E3/uL} (Normal) Range: [...] 3.77-5.28 WBC 8.5 {x10E3/uL} (Normal) Range: 3.4-10.8 78-Jhi-037048:26 VIRAL CULTURE (85524) Comments: throat; PATIENT NOT FASTINGPERFORMED BY: [facility] [address] [id number] Information: THROAT SRC: [id number] Viral Culture, General No virus isolated. (Normal) 08-Ctk-305053:26 Throat Culture (30493) Comments: PATIENT NOT FASTINGPERFORMED BY: [facility] Igmior8927 [facility] [id number] Information: SRC: Result 1 RRF (Normal) Comments: Routine respiratory jose Upper Respiratory Culture Final report (Normal) 37-Eka-772466:44 Rapid Strep Test, Office (10426) Rapid Strep Test, Office Negative (Normal) 5-Ahe-235921:24 Rapid Flu (18838 x 2) Influenza A Ag Negative (Normal) 2-Feb-75552:05 Celiac Disease Comphrehensive Comments: PATIENT NOT FASTINGPERFORMED BY: LabCoSaint James HospitalXapanw6037 [facility] [id number] Information: 695450,S56228 Profile (90155) Immunoglobulin A, Qn, Serum 200 mg/dL (Normal) [...] Positive >30 :05 CBC with auto diff (40493) Comments: PATIENT NOT FASTINGPERFORMED BY: [facility] Paemhx6149 [facility] [id number] Hematology Comments: Note: (Normal) Comments: Verified by [...] 3.77-5.28 WBC 8.3 {x10E3/uL} (Normal) Range: 3.4-10.8 :54 Amylase (94824) Comments: PATIENT NOT FASTINGPERFORMED BY: HumanCloudJerem[place] 4809270 [facility] [id number] BY: [address] [id number] Amylase, Serum 47 U/L (Normal) Range: 31-124 :54 Lipase (65180) Comments: PATIENT NOT FASTINGPERFORMED BY: HumanCloud[address] [id number] BY: [address] [id number] Lipase, Serum 34 U/L (Normal) Range: 0-59 :54 HELICOBACTER PYLORI Comments: PATIENT NOT FASTINGPERFORMED BY: HumanCloud[address] [id number] BY: [address] [id number] ANTIBODY PROFILE IgG, IgM, IgA (93574) H. pylori, IgG Abs <0.9 U/mL (Normal) Range: 0.0-0.8 Comments: Negative <0.9 Indeterminate 0.9 - 1.0 Positive >1.0 28-Lfr-020615:54 Sed Rate Erythrocyte Comments: PATIENT NOT FASTINGPERFORMED BY: VidacareJohnny [place] 4039170 [facility] [id number] BY: [place] 457787 [facility] [id number] (56054) Sedimentation Rate-Westergren 53 mm/h (Abnormal) Range: 0-40 49-Jsr-586569:54 Metabolic Panel, Comments: PATIENT NOT FASTINGPERFORMED BY: Keen HomeJeremy [place] 4809270 [facility] [id number] BY: [facility] [id number] Comprehensive (97940) ALT (SGPT) 14 [iU]/L (Normal) Range: 0-32 [...] Glucose, Serum 91 mg/dL (Normal) Range: 65-99 58-Wgi-452521:54 Soluble Transferrin Comments: PATIENT NOT FASTINGPERFORMED BY: [facility] HomeJeremy [place] 4809270 [facility] [id number] BY: [address] [id number] Receptor (97885) Soluble Transferrin Receptor 44.2 nmol/L (Abnormal) Range: 12.2-27.3 00-Kgh-104119:54 SPEP (70264) Comments: PATIENT NOT FASTINGPERFORMED BY: [facility] HomeJe[place] 4809270 [facility] [id number] BY: [facility] [id number] Please note: SPRCS (Normal) Comments: Protein electrophoresis scan will follow via computer, mail, orcourier delivery. A/G Ratio 1.1 (Normal) Range: 0.7-2.0 Globulin, Total 3.6 g/dL (Normal) Range: 2.0-4.5 M-Isrrael Not Observed g/dL (Normal) Gamma Globulin 1.3 g/dL (Normal) Range: 0.5-1.6 Beta Globulin 1.2 g/dL (Normal) Range: 0.6-1.3 Hqkfg-6-Hrhxpmgo 0.9 g/dL (Normal) Range: 0.4-1.2 Nkqyb-0-Kpcuaxsc 0.2 g/dL (Normal) Range: 0.1-0.4 Albumin 3.8 g/dL (Normal) Range: 3.2-5.6 02-Isg-589584:54 UPEP (63803) Comments: PATIENT NOT FASTINGPERFORMED BY: [facility] HomeSaint James HospitalDwrkxq8377 [facility] [id number] BY: [facility] [id number] Please note: SPRCS (Normal) Comments: Protein electrophoresis scan will follow via computer, mail, orcourier delivery. M-Isrrael, % Not Observed % (Normal) Gamma Globulin, U 34.1 % (Normal) Beta Globulin, U 30.6 % (Normal) Pvkkj-8-Fopybouy, U 14.3 % (Normal) Gajfp-4-Awiezguc, U 2.2 % (Normal) Albumin, U 18.8 % (Normal) Protein,Total,Urine 4.2 mg/dL (Normal) Range: 0.0-15.0 03-Qzr-322718:54 CARLOS TEST, DIRECT Comments: PATIENT NOT FASTINGPERFORMED BY: [facility] Kqxpxh3343 [facility] [id number] BY: [place] [id number] (94815) Carlos', Direct Negative (Normal) 19-Fpp-671431:54 FOLIC ACID SERUM (72756) Comments: PATIENT NOT FASTINGPERFORMED BY: [facility] Admiqn1102 [facility] [id number] BY: [address] [id number] Folate (Folic Acid), Serum 13.4 ng/mL (Normal) Comments: A serum folate concentration of less than 3.1 ng/mL isconsidered to represent clinical deficiency. 89-Kpv-031562:54 Methymalonic Acid, Serum Comments: PATIENT NOT FASTINGPERFORMED BY: [employer] Cnaedr5231 [facility] [id number] BY: [address] [id number] (77001) Methylmalonic Acid, Serum 196 nmol/L (Normal) Range: 0-378 08-Sdt-183746:54 VITAMIN B-12 Comments: PATIENT NOT FASTINGPERFORMED BY: [facility] Drgpsn6902 [facility] [id number] BY: [address] [id number] (CYANOCOBALAMIN) (72296) Vitamin B12 1299 pg/mL (Abnormal) Range: 211-946 46-Tfi-801743:54 RETICULOCYTE COUNT MANUL Comments: PATIENT NOT FASTINGPERFORMED BY: LabIron GamingJeremy [place] 4809270 [facility] [id number] BY: [address] [id number] (88756) Reticulocyte Count 1.0 % (Normal) Range: 0.6-2.6 58-Mda-341262:54 LDH (LD) (LACTATE Comments: PATIENT NOT FASTINGPERFORMED BY: LabJohnny [place] 4039170 [facility] [id number] BY: [address] [id number] DEHYDROGENASE) (43313) LDH 159 [iU]/L (Normal) Range: 119-226 31-Btf-062423:54 IRON BINDING CAPACITY Comments: PATIENT NOT FASTINGPERFORMED BY: [facility] [id number] BY: [address] [id number] (TIBC) (92855) Iron Saturation 4 % (Abnormal) Range: 15-55 Iron, Serum 15 ug/dL (Abnormal) Range: 35-155 UIBC 363 ug/dL (Normal) Range: 150-375 Iron Bind.Cap.(TIBC) 378 ug/dL (Normal) Range: 250-450 67-Nvr-481387:54 FERRITIN (14867) Comments: PATIENT NOT FASTINGPERFORMED BY: [place] 4546370 [facility] [id number] BY: [address] [id number] Ferritin, Serum 5 ng/mL (Abnormal) Range: 15-150 32-Tmq-091213:54 HAPTOGLOBIN (91500) Comments: PATIENT NOT FASTINGPERFORMED BY: LabJohnny [place] 4039170 [facility] [id number] BY: [address] [id number] Haptoglobin 282 mg/dL (Abnormal) Range: 34-200 04-Dgb-319828:54 CBC, PLATELETS & AUT DIFF Comments: PATIENT NOT FASTINGPERFORMED BY: [facility]Asc[facility] Hospital6370 [facility] [id number] BY: LabCo[address] [id number] Information: 295465,D79802 (45069) Immature Grans (Abs) 0.0 {x10E3/uL} (Normal) Range: [...] Plan of Care Name Dates Details Instructions HTN (hypertension), benign : Follow up in 3 weeks Indication: HTN (hypertension), benign HTN (hypertension), benign : BP MONITORING - SELF Indication: HTN (hypertension), benign Rash : Eprescribed prescriptions (G8553) Indication: Rash BMI 38.0-38.9,adult : Follow up in 1 [...] Non-smoker Planned Observations IRON BINDING CAPACITY (TIBC) (69638)Indication: Fatigue On: 91-Smq-419814:34 Request LEAD (07674)Indication: Fatigue On: 14-Bzv-285094:34 Request FERRITIN (43315)Indication: Fatigue On: 71-Xtl-345408:34 Request IRON (78445)Indication: Fatigue On: 91-Yri-676647:34 Request METABOLIC PANEL, COMPREHENSIVE (79409)Indication: HTN (hypertension), benign On: :56 Request LIPOPROTEIN, BLD, BY NMR (36009)Indication: HTN (hypertension), benign On: :56 Request CBC W/AUTO DIFF WBC (56984)Indication: HTN (hypertension), benign On: :56 Request OVA & PARASITE DIR SMEAR (80957)Indication: DIARRHEA (Renamed from D (diarrhea)) On: 37-Kwl-759722:41 Request OCCULT BLOOD FECES SCREEN (43002)Indication: DIARRHEA (Renamed from D (diarrhea)) On: :41 Request LEUKOCYTE COUNT, FECAL (94200)Indication: DIARRHEA (Renamed from D (diarrhea)) On: :41 Request C-DIFFICILE, STOOL (48027)Indication: DIARRHEA (Renamed from D (diarrhea)) On: :41 Request SHANNAN CULTURE-STOOL (86504)Indication: DIARRHEA (Renamed from D (diarrhea)) On: :41 Request FECAL OCCULT- Tubes sent home (95374)Indication: ANEMIA, UNSPECIFIED On: 76-Tsm-837213:40 Request IRON (60662)Indication: ANEMIA, UNSPECIFIED On: 65-Meu-648912:40 Request Planned Encounters Medical; 3 Week FU - On: 27-Jul-2018 11:45 [facility] Billie Laurent DO, DO, Kathleen Planned Procedures MAMMOGRAM BREAST BILATERAL On: 11-May-2018 Intent SCREENING DIGITAL (99765)By: Billie Laurent DO, DO, Kathleen ELECTROCARDIOGRAM, COMPLETE (ECG) On: 20-Apr-2018 Intent (23594)By: Aimee Rivera Comments: nsr no avute chg ELECTROCARDIOGRAM, COMPLETE (ECG) On: 30-Sep-2017 Intent (71023)By: Billie Laurent DO Comments: nsr poor R wave progression no acute chg Billie Laurent DO Radiology - Chest- PA and LatBy: On: 24-Sep-2017 Intent Billie Laurent DO, DO, Comments: follow on abnormality 08/31 Billie Solu- Medrol Injection, 125mg On: 27-Aug-2017 Intent (J2930)By: Billie Laurent DO Comments: [id number] vialMLONG Billie Laurent DO Aerosol Treatment (26035)By: On: 27-Aug-2017 Intent Billie Laurent DO, DO, Comments: less velcro noise more a/e less reactive cough Billie Solu -Medrol Injection, 125 mg On: 25-Aug-2017 Intent (J2930)By: Billie Laurent DO Comments: solumedrol 125mg injectionlot: [id number]: 12/2019R GMpt tolerated wellAD INTERACTIVE MEDIA PROJECT MANAGER Billie Laurent DO Rocephin Injection, 2 Gram On: 25-Aug-2017 Intent (J0696)By: Billie Laurent DO Comments: rochephin 2gm injection diluted in 4.2cc of 2% lidocainelot: [id number]: 05/2019L and R GM, 1gm in bothpt tolerated wellAD INTERACTIVE MEDIA PROJECT MANAGER Billie Laurent DO Aerosol Treatment (44778)By: On: 25-Aug-2017 Intent Billie Laurent DO, DO, Comments: more a;e-- left side clearly rhonhci and exp wheeeze other side that was quiet now more a/e -- is wheezy in RLL too Billie Radiology - Chest- PA and LatBy: On: 25-Aug-2017 Intent Billie Laurent DO, DO, Kathleen Aerosol Treatment (93663)By: Rose On: 19-Aug-2017 Intent Leslee LOZADA Spirometry (00288)By: Rose LOZADA, On: 19-Aug-2017 Intent Amy Comments: mild restriction ELECTROCARDIOGRAM, COMPLETE (ECG) On: 28-Sep-2015 Intent (35928)By: Fermin Oviedo MD Radiology - Foot - LeftBy: Ivelisse On: 28-Sep-2015 Intent Fermin PALAFOX Planned Medications INJECTION, CEFTRIAXONE SODIUM, PER 250 MG Ordered: 25-Aug-2017 Pending Billie Laurent DO, DO, Kathleen INJECTION, METHYLPREDNISOLONE SODIUM SUCCINATE, UP TO 125 MG Ordered: 25-Aug-2017 Pending Billie Laurent DO, DO, Kathleen INJECTION, METHYLPREDNISOLONE SODIUM SUCCINATE, UP TO 125 MG Ordered: 27-Aug-2017 Pending Billie Laurent DO, DO, Kathleen Instructions Name Dates Details Rash : How to access health information online Indication: Rash Rash : How to access health information online - Detail Indication: Rash Rash : Patient Instructions Indication: Rash Sore throat : How to access health [...] Non-smoker : Patient Instructions Indication: Non-smoker Encounters Office Visit On: 06-Jul-2018 10:34 Encounter Reason: Rash - Symptoms include skin bumps, skin dryness, pruritus and skin redness. The skin rash is located on the left arm and right arm. Onset was month(s) ago (end of ocotober). The symptoms occur constant End: 06-Jul-2018 11:13 ly. The patient describes this as worsening. Note for Rash: its very itchy-- doesnt look like my normal psosairis -- is topped the bp medicine for one week and the rash has improved but still thereEncounter Diagnosis: BMI 38.0-38.9,adult, Non-smoker, Rash, HTN (hypertension), benign, Drug reaction, initial encounter [facility] Lab Order On: 10-Jun-2018 16:32 Encounter Diagnosis: [...] for Nausea: Started lsinopril before trip to [place] then BP too low, then dose decreased [...] a summary of care was not provided (rolf is aware we need to sign the records release) ., End: 29-Jun-2015 22:13 [ADDITIONAL REASON] Abdominal pain - The pain has been occurring for 4 days. Encounter Diagnosis: Non-smoker, ANEMIA, UNSPECIFIED (285.9), DIARRHEA (Renamed from D (diarrhea)), Acute generalized abdominal pain (Renamed from Abdominal pain, acute, generalized), GERD (530.81), Hiatal hernia, Diverticular disease [facility] Payers Adriane DAVIS/Meseret Michel; a guarantor
--- OUTSIDE RECORDS SUMMARY | 2018-10-05 22:57 | XMS RPT_ITS | Continuity of Care Document ---
:1960 Author Organization [facility] Address [address] [place] [address] Phone Care Team Providers Name Role Phone Billie Laurent DO Unavailable Dr. Sandoval Enrique Unavailable Bianca Fonseca Unavailable Dr. Juan Mercer Unavailable Aakash Butt Unavailable Unavailable Leslee Rose CNP Unavailable Long LIQUOR TESTER, Kathy L Unavailable Unavailable Gravius, Aimee Unavailable [...] needles a nd procedures, anxiety with colonoscopy.Works [employer],job changes, 23 yr old daughter has DOWNS [...] with [facility] for nutrition counselling. BMI 40.46.Cost 300 $ [...] MG Oral Tablet 1/2 Tablet bid for 0 days Quantity: 60 {Tablet} Refills: 0 Ordered:11-May-2018 Willy Laurent DO, DO, Kathleen Start : 11-May-2018 Active PriLOSEC 20 MG Oral Capsule Delayed [...] 30-Sep-2017 End : 30-Oct-2017 Inactive EXCEDRIN MIGRAINE, [id number] (Oral Tablet) 1 prn for migraines (250-250-65 [...] and Lateral Result: Comments: See Note; NOTES: [facility] Imaging Services [address] [place] [address] 18248 Chest PA and Lateral MR#: [id number] Acct: [id number] Name: ANABELLA MICHEL Rep #: [id number] : 1960 F 57 From: Madi Sheikh DO PCP: Billie Laurent DO Status: REG CLI Study: Chest PA and Lateral Date of Exam: 09/24/17 Exam# [id number] Ordering Dr: Billie Laurent DO STUDY: X-RAY [...] Service support , CC: Billie Laurent DO Appliance Service Representative: Signed 25-Aug-2017 Chest PA and Lateral Result: Comments: See Note; NOTES: [facility] Imaging Services [address] [place] [address] Chest PA and Lateral MR#: [id number] Acct: [id number] Name: ANABELLA MICHEL Rep #: [id number] : 1960 F 57 From: Tato Knox MD PCP: Billie Laurent DO Status: REG CLI Study: Chest PA and Lateral Date of Exam: 08/25/17 Exam# [id number] Ordering Dr: Billie Laurent DO STUDY: X- [...] Tato Knox MD at 14:06 EST Tel [phone], Service support , CC: Billie Laurent DO Appliance Service Representative: Signed 16-Feb-2016 Bilat Scrn Digital AND CAD Result: Comments: See Note; NOTES: [facility] Services [address] [place] [address] Verdana 4d Bilat Scrn Digital AND CAD MR#: [id number] Acct: [id number] Name: ANABELLA MICHEL Rep #: [id number] : 1960 F 55 From: Tato Knox MD PCP: Fermin Oviedo Status: REG CL Study: Bilat Scrn Digital AND CAD Date of Exam: 02/16/16 Exam# [id number] Ordering Dr: Bertha Richardson MD MAMMOGRAPHY - [...] delay biopsy of a clinically suspicious abnormality. [id number] Electronically Signed: Tato Knox MD a t 15:42 EDT Tel [phone], Service support [phone], CC: Fermin Oviedo; Sima Richardson MD Appliance Service Representative: Signed Family History Unknown Family Member Name Dates Details Father Comments: diabestes, htn Status: Active Mother Comments: ulcerated colitis Status: Active Social History Name Dates Details No Caffeine Use Status: Active No Drug Use Status: Active Non Drinker/No Alcohol Use Status: Active Non Smoker/No Tobacco Use Status: Active Vital Signs Date Test Result Details 35-Tyk-851456:17 Temperature 97.5 f Pulse 83 /min Comments: [...] kg/m2 Body Surface Area Calculated 1.96 m2 57-Mrr-90619:31 Comments: her machine 132/82 Pulse 88 /min [...] kg/m2 Body Surface Area Calculated 2 m2 79-Fub-209159:35 Comments: 142/102 catapress given 0.1mg at 11:40 [...] kg/m2 Body Surface Area Calculated 2 m2 19-Sfk-219333:43 Pulse 106 /min Comments: Pattern: Regular Respiration [...] Weight 221.2 lb :51 Comments: 128/78, 89 gyacr052/72, 92 cymflcz123/68, 95 standing Temperature 98.7 f Pulse 90 /min Comments: Pattern: Regular Respiration Rate 16 /min Comments: Pattern: Unlabored O2 SAT 99 % Comments: Room air BP Systolic 128 mm[Hg] Comments: Patient Position: Sitting; Cuff Location: Left Arm; Cuff Size: Standard BP Diastolic 80 mm[Hg] Comments: Patient Position: Sitting; Cuff Location: Left Arm; Cuff Size: Standard Weight 216 lb Results Date Description Value Details 93-Bmg-051070:20 Rapid Strep Test, Office (42819) Comments: neg Rapid Strep Test, Office Negative (Normal) 0-Yhr-063542:55 Microscopic Examination Comments: PATIENT NOT FASTINGPERFORMED BY: [facility]70 [facility] [id number] Bacteria None seen (Normal) Mucus Threads Present (Normal) Epithelial Cells (non renal) None seen {/hpf} (Normal) Range: 0 - 10 RBC 0-2 {/hpf} (Normal) Range: 0 - 2 WBC 0-5 {/hpf} (Normal) Range: 0 - 5 :55 URINALYSIS, W/ MICRO (85883) Comments: PATIENT NOT FASTINGPERFORMED BY: PedidosYa / PedidosJá6370 [facility] [id number] Microscopic Examination See below: (Normal) Comments: Microscopic was indicated and was performed. Nitrite, Urine Negative (Normal) Urobilinogen,Semi-Qn 0.2 mg/dL (Normal) Range: 0.2-1.0 Bilirubin Negative (Normal) Occult Blood Negative (Normal) Ketones Negative (Normal) Glucose Negative (Normal) Protein Negative (Normal) WBC Esterase 1+ (Abnormal) Appearance Clear (Normal) Urine-Color Yellow (Normal) pH 6.5 (Normal) Range: 5.0-7.5 Specific [place] 1.016 (Normal) Range: 1.005-1.030 7-Mjh-945785:55 METABOLIC PANEL, COMPREHENSIVE Comments: PATIENT NOT FASTINGPERFORMED BY: [facility]CoShore [facility] HospitalCxojnu9[address] [facility] [id number] (58799) ALT (SGPT) 14 [iU]/L (Normal) Range: 0-32 [...] 6-24 Glucose 89 mg/dL (Normal) Range: 65-99 5-Qrw-194839:55 CBC W/AUTO DIFF WBC (40474) Comments: PATIENT NOT FASTINGPERFORMED BY: [facility]CoSh[facility] HospitalUeftuu[address] [facility] [id number] Immature Grans (Abs) 0.0 {x10E3/uL} (Normal) Range: [...] 3.77-5.28 WBC 8.5 {x10E3/uL} (Normal) Range: 3.4-10.8 66-Iks-195916:45 Microscopic Examination Comments: PATIENT WAS FASTINGPERFORMED BY: [facility]Man[facility] [id number] Bacteria Few (Normal) Mucus Threads Present (Normal) Epithelial Cells (non renal) 0-10 {/hpf} (Normal) Range: 0 - 10 RBC None seen {/hpf} (Normal) Range: 0 - 2 WBC 0-5 {/hpf} (Normal) Range: 0 - 5 22-Jjd-436577:45 URINALYSIS, W/ MICRO (76903) Comments: PATIENT WAS FASTINGPERFORMED BY: [facility]Man[facility] [id number] Microscopic Examination See below: (Normal) Comments: Microscopic was indicated and was performed. Nitrite, Urine Negative (Normal) Urobilinogen,Semi-Qn 0.2 mg/dL (Normal) Range: 0.2-1.0 Bilirubin Negative (Normal) Occult Blood Negative (Normal) Ketones Trace (Abnormal) Glucose Negative (Normal) Protein Negative (Normal) WBC Esterase Trace (Abnormal) Appearance Clear (Normal) Urine-Color Yellow (Normal) pH 6.0 (Normal) Range: 5.0-7.5 Specific [place] 1.014 (Normal) Range: 1.005-1.030 36-Rvy-800658:45 MICROALBUMIN: CREATININE RATIO Comments: PATIENT WAS FASTINGPERFORMED BY: PrimavistaShore Memorial HospitalQhmomh22[address] [facility] [id number] (83317) AND (13923) Alb/Creat Ratio 8.4 {mg/g_creat} (Normal) Range: 0.0-30.0 Albumin, Urine 3.9 ug/mL (Normal) Creatinine, Urine 46.4 mg/dL (Normal) 27-Bwf-100087:45 METABOLIC PANEL, COMPREHENSIVE Comments: PATIENT WAS FASTINGPERFORMED BY: [employer] Tydmvy3205 [facility] [id number] (47448) ALT (SGPT) 18 [iU]/L (Normal) Range: 0-32 [...] Glucose, Serum 88 mg/dL (Normal) Range: 65-99 80-Eqc-362028:45 LIPID PANEL (92970) Comments: PATIENT WAS FASTINGPERFORMED BY: [employer] [id number] LDL/HDL Ratio 2.3 {ratio_units} (Normal) Range: 0.0-3.2 Comments: LDL/HDL Ratio Men Women 1/2 Avg.Risk 1.0 1.5 Av g.Risk 3.6 3.2 2X Avg.Risk 6.2 5.0 3X Avg.Risk 8.0 6.1 LDL Cholesterol Calc 146 mg/dL (Abnormal) Range: 0-99 VLDL Cholesterol [place] 17 mg/dL (Normal) Range: 5-40 HDL Cholesterol 63 mg/dL (Normal) Triglycerides 83 mg/dL (Normal) Range: 0-149 Cholesterol, Total 226 mg/dL (Abnormal) Range: 100-199 28-Heh-343854:45 CBC W/AUTO DIFF WBC (56884) Comments: PATIENT WAS FASTINGPERFORMED BY: [facility] Lfpoid6288 [facility] [id number] Immature Grans (Abs) 0.0 {x10E3/uL} (Normal) Range: [...] 3.77-5.28 WBC 8.5 {x10E3/uL} (Normal) Range: 3.4-10.8 96-Cod-712778:26 VIRAL CULTURE (44456) Comments: throat; PATIENT NOT FASTINGPERFORMED BY: [address] [id number] Information: THROAT SRC: [id number] Viral Culture, General No virus isolated. (Normal) 88-Ixd-375184:26 Throat Culture (63666) Comments: PATIENT NOT FASTINGPERFORMED BY: [address] [id number] Information: SRC: Result 1 RRF (Normal) Comments: Routine respiratory jose Upper Respiratory Culture Final report (Normal) 96-Qpj-241307:44 Rapid Strep Test, Office (16977) Rapid Strep Test, Office Negative (Normal) 8-Pgv-611833:24 Rapid Flu (49894 x 2) Influenza A Ag Negative (Normal) 15-Aug-20158:05 Celiac Disease Comphrehensive Comments: PATIENT NOT FASTINGPERFORMED BY: [facility] [employer] [id number] Information: [id number] Profile (20989) Immunoglobulin A, Qn, Serum 200 mg/dL (Normal) [...] - 30 Moderate to Strong Positive >30 15-Aug-20158:05 CBC with auto diff (71046) Comments: PATIENT NOT FASTINGPERFORMED BY: LabCoSh[facility] HospitalLuplhe7500 [facility] [id number] Hematology Comments: Note: (Normal) Comments: Verified by [...] 3.77-5.28 WBC 8.3 {x10E3/uL} (Normal) Range: 3.4-10.8 33-Eok-337137:54 Amylase (67130) Comments: PATIENT NOT FASTINGPERFORMED BY: [address] [id number] BY: [address] [id number] Amylase, Serum 47 U/L (Normal) Range: 31-124 97-Tko-897807:54 Lipase (87495) Comments: PATIENT NOT FASTINGPERFORMED BY: [facility] [id number] BY: [address] [id number] Lipase, Serum 34 U/L (Normal) Range: 0-59 36-Sma-331772:54 HELICOBACTER PYLORI Comments: PATIENT NOT FASTINGPERFORMED BY: [facility] [id number] BY: [address] [id number] ANTIBODY PROFILE IgG, IgM, IgA (89986) H. pylori, IgG Abs <0.9 U/mL (Normal) Range: 0.0-0.8 Comments: Negative <0.9 Indeterminate 0.9 - 1.0 Positive >1.0 17-Naw-358227:54 Sed Rate Erythrocyte Comments: PATIENT NOT FASTINGPERFORMED BY: [address] [id number] BY: [address] [id number] (68562) Sedimentation Rate-Westergren 53 mm/h (Abnormal) Range: 0-40 61-Csv-107470:54 Metabolic Panel, Comments: PATIENT NOT FASTINGPERFORMED BY: [facility] [id number] BY: [employer] [id number] Comprehensive (47519) ALT (SGPT) 14 [iU]/L (Normal) Range: 0-32 [...] Glucose, Serum 91 mg/dL (Normal) Range: 65-99 93-Phl-759397:54 Soluble Transferrin Comments: PATIENT NOT FASTINGPERFORMED BY: [facility] Kjrjjj7[address] [facility] [id number] BY: [employer] [id number] Receptor (13451) Soluble Transferrin Receptor 44.2 nmol/L (Abnormal) Range: 12.2-27.3 48-Yql-279290:54 SPEP (26871) Comments: PATIENT NOT FASTINGPERFORMED BY: [employer] Qmjsas5772 [facility] [id number] BY: [facility] Center[facility]etics[address] [id number] Please note: SPRCS (Normal) Comments: Protein electrophoresis scan will follow via computer, mail, orcourier delivery. A/G Ratio 1.1 (Normal) Range: 0.7-2.0 Globulin, Total 3.6 g/dL (Normal) Range: 2.0-4.5 M-Isrrael Not Observed g/dL (Normal) Gamma Globulin 1.3 g/dL (Normal) Range: 0.5-1.6 Beta Globulin 1.2 g/dL (Normal) Range: 0.6-1.3 Czudj-4-Obfucmut 0.9 g/dL (Normal) Range: 0.4-1.2 Ijyom-7-Aybtmiww 0.2 g/dL (Normal) Range: 0.1-0.4 Albumin 3.8 g/dL (Normal) Range: 3.2-5.6 39-Aok-513591:54 UP (00217) Comments: PATIENT NOT FASTINGPERFORMED BY: [employer] Systemslin6[address] [facility] [id number] BY: [employer] [id number] Please note: SPRCS (Normal) Comments: Protein electrophoresis scan will follow via computer, mail, orcourier delivery. M-Isrrael, % Not Observed % (Normal) Gamma Globulin, U 34.1 % (Normal) Beta Globulin, U 30.6 % (Normal) Gwarm-3-Ubwgftgp, U 14.3 % (Normal) Byfnd-2-Pbofvokb, U 2.2 % (Normal) Albumin, U 18.8 % (Normal) Protein,Total,Urine 4.2 mg/dL (Normal) Range: 0.0-15.0 91-Rjn-753703:54 CARLOS TEST, DIRECT Comments: PATIENT NOT FASTINGPERFORMED BY: [facility]6370 Khan Roadblin [place] [id number] BY: [address] [id number] (27251) Carlos', Direct Negative (Normal) 46-Zcb-426079:54 FOLIC ACID SERUM (80201) Comments: PATIENT NOT FASTINGPERFORMED BY: [facility] Uwimls1982 Khan RoadDublin [place] [id number] BY: [address] [id number] Folate (Folic Acid), Serum 13.4 ng/mL (Normal) Comments: A serum folate concentration of less than 3.1 ng/mL isconsidered to represent clinical deficiency. 62-Brr-587033:54 Methymalonic Acid, Serum Comments: PATIENT NOT FASTINGPERFORMED BY: [facility]6[address] Roadblin [place] [id number] BY: [address] [id number] (03294) Methylmalonic Acid, Serum 196 nmol/L (Normal) Range: 0-378 11-Xey-323357:54 VITAMIN B-12 Comments: PATIENT NOT FASTINGPERFORMED BY: [facility] [facility] Hospitalbl[facility] [place] [id number] BY: [address] [id number] (CYANOCOBALAMIN) (06890) Vitamin B12 1299 pg/mL (Abnormal) Range: 211-946 80-Tjx-479818:54 RETICULOCYTE COUNT MANUL Comments: PATIENT NOT FASTINGPERFORMED BY: [facility] Circua2639 Khan RoadDublin [place] [id number] BY: [address] [id number] (79264) Reticulocyte Count 1.0 % (Normal) Range: 0.6-2.6 64-Uuq-222445:54 LDH (LD) (LACTATE Comments: PATIENT NOT FASTINGPERFORMED BY: LabCo Irifoj3502 Khan RoadDublin [place] [id number] BY: [address] [id number] DEHYDROGENASE) (80993) LDH 159 [iU]/L (Normal) Range: 119-226 59-Zfs-560312:54 IRON BINDING CAPACITY Comments: PATIENT NOT FASTINGPERFORMED BY: LabCoJoshua Ville 87157[address] [facility] [id number] BY: [address] [id number] (TIBC) (40117) Iron Saturation 4 % (Abnormal) Range: 15-55 Iron, Serum 15 ug/dL (Abnormal) Range: 35-155 UIBC 363 ug/dL (Normal) Range: 150-375 Iron Bind.Cap.(TIBC) 378 ug/dL (Normal) Range: 250-450 69-Gvo-129654:54 FERRITIN (94549) Comments: PATIENT NOT FASTINGPERFORMED BY: [facility] MindsAnthony Ville 5307[address] [facility] [id number] BY: [address] [id number] Ferritin, Serum 5 ng/mL (Abnormal) Range: 15-150 15-Hfi-120459:54 HAPTOGLOBIN (09676) Comments: PATIENT NOT FASTINGPERFORMED BY: LabVitaPath GeneticsJoshua Ville 87157[address] [facility] [id number] BY: [address] [id number] Haptoglobin 282 mg/dL (Abnormal) Range: 34-200 34-Ppa-700049:54 CBC, PLATELETS & AUT DIFF Comments: PATIENT NOT FASTINGPERFORMED BY: LabAnthony Ville 5307370 [facility] [id number] BY: [address] [id number] Information: 229707,Q90875 (58233) Immature Grans (Abs) 0.0 {x10E3/uL} (Normal) Range: [...] Eprescribed prescriptions (G8553) Indication: Non-smoker Planned Observations Renal function Panel (43711)Indication: Fatigue On: 61-Bdt-798260:08 Request CBC & PLATELETS (AUTO) (45227)Indication: Fatigue On: 46-Cbx-641928:06 Request EBV Panel (09877)Indication: Fatigue On: 11-Oad-743871:06 Request THROAT CULTURE (26879)Indication: Sore throat On: 71-Wwf-711504:20 Request METABOLIC PANEL, COMPREHENSIVE (68796)Indication: HTN (hypertension), benign On: :56 Request LIPOPROTEIN, BLD, BY NMR (89565)Indication: HTN (hypertension), benign On: :56 Request CBC W/AUTO DIFF WBC (83814)Indication: HTN (hypertension), benign On: 33-Ecw-42522:56 Request OVA & PARASITE DIR SMEAR (55483)Indication: DIARRHEA (Renamed from D (diarrhea)) On: 68-Jmn-276540:41 Request OCCULT BLOOD FECES SCREEN (33337)Indication: DIARRHEA (Renamed from D (diarrhea)) On: 10-Gjc-733891:41 Request LEUKOCYTE COUNT, FECAL (76892)Indication: DIARRHEA (Renamed from D (diarrhea)) On: 45-Pzv-769435:41 Request C-DIFFICILE, STOOL (95174)Indication: DIARRHEA (Renamed from D (diarrhea)) On: :41 Request SHANNAN CULTURE-STOOL (29867)Indication: DIARRHEA (Renamed from D (diarrhea)) On: 21-Wyd-796919:41 Request FECAL OCCULT- Tubes sent home (37606)Indication: ANEMIA, UNSPECIFIED On: :40 Request IRON (27167)Indication: ANEMIA, UNSPECIFIED On: :40 Request Planned Encounters Medical; 4 Month FU - On: 14-Aug-2018 9:30 [facility] Billie Laurent DO, DO, Kathleen Planned Procedures MAMMOGRAM BREAST BILATERAL On: 11-May-2018 Intent SCREENING DIGITAL (36233)By: Billie Laurent DO, DO, Kathleen ELECTROCARDIOGRAM, COMPLETE (ECG) On: 20-Apr-2018 Intent (14088)By: Aimee Rivera Comments: nsr no avute chg ELECTROCARDIOGRAM, COMPLETE (ECG) On: 30-Sep-2017 Intent (22399)By: Billie Laurent DO Comments: nsr poor R wave progression no acute chg Billie Laurent DO Radiology - Chest- PA and LatBy: On: 24-Sep-2017 Intent Billie Laurent DO, DO, Comments: follow on abnormality 08/31 Billie Solu- Medrol Injection, 125mg On: 27-Aug-2017 Intent (J2930)By: Billie Laurent DO Comments: [id number] vialMLONG Billie Laurent DO Aerosol Treatment (04133)By: On: 27-Aug-2017 Intent Billie Laurent DO, DO, Comments: less velcro noise more a/e less reactive cough Billie Solu -Medrol Injection, 125 mg On: 25-Aug-2017 Intent (J2930)By: Billie Laurent DO Comments: solumedrol 125mg injectionlot: [id number]: 12/2019R GMpt tolerated wellAD LIQUOR TESTER Billie Laurent DO Rocephin Injection, 2 Gram On: 25-Aug-2017 Intent (J0696)By: Billie Laurent DO Comments: rochephin 2gm injection diluted in 4.2cc of 2% lidocainelot: [id number]: 05/2019L and R GM, 1gm in bothpt tolerated wellAD LIQUOR TESTER Billie Laurent DO Aerosol Treatment (38795)By: On: 25-Aug-2017 Intent Billie Laurent DO, DO, Comments: more a;e-- left side clearly rhonhci and exp wheeeze other side that was quiet now more a/e -- is wheezy in RLL too Billie Radiology - Chest- PA and LatBy: On: 25-Aug-2017 Intent Billie Laurent DO, DO, Kathleen Aerosol Treatment (92070)By: Rose On: 19-Aug-2017 Intent Leslee LOZADA Spirometry (79613)By: Roes LOZADA, On: 19-Aug-2017 Intent Leslee Villafuerte Comments: mild restriction ELECTROCARDIOGRAM, COMPLETE (ECG) On: 28-Sep-2015 Intent (15845)By: Fermin Oviedo MD Radiology - Foot - LeftBy: Ivelisse On: 28-Sep-2015 Intent Fermin PALAFOX Planned Medications INJECTION, CEFTRIAXONE SODIUM, PER 250 MG Ordered: 25-Aug-2017 Pending Billie Laurent DO DO, Billie INJECTION, METHYLPREDNISOLONE SODIUM SUCCINATE, UP TO 125 MG Ordered: 25-Aug-2017 Pending Billie Laurent DO DO, Billie INJECTION, METHYLPREDNISOLONE SODIUM SUCCINATE, UP TO 125 MG Ordered: 27-Aug-2017 Pending Mehran Billie HUSSEIN DOBillie Instructions Name Dates Details Sore throat : [...] Instructions Indication: Non-smoker Encounters Office Visit On: 09-Jun-2018 10:11 Encounter Reason: [...] for Nausea: Started lsinopril before trip to [place] then BP too low, then dose decreased [...]
--- OUTSIDE RECORDS SUMMARY | 2018-10-05 22:58 | XMS RPT_ITS | Continuity of Care Document ---
:1960 Author Organization [facility] Address [address] [place] [address] 2 [place] [address] Phone Care Team Providers Name Role Phone Billie Laurent DO Unavailable Dr. Sandoval Enrique Unavailable Bianca Fonseca Unavailable Dr. Juan Mercer Unavailable ANÍBAL Olivarez Unavailable Unavailable Long Kathy SPANGLER Unavailable Unavailable Aimee Rivera Unavailable Unavailable Andreina Murillo Unavailable Unavailable Unavailable Unavailable Problems Name Dates [...] needles a nd procedures, anxiety with colonoscopy.Works [email or web address],job changes, 23 yr old daughter has DOWNS [...] week.Can join [employer] program me with [facility] for nutrition counselling. BMI 40.46.Cost 300 $ so does not want to spend the money.Does not exercise Status: Active Deliveries (Parity) Comments: 2. Status: Active Diverticular disease (K57.90, 562.10) Comments: based on CT scan abdomen /pelvis(03-31-15).High fiber diet Status: Active Elevated blood pressure reading (R03.0, 796.2) Comments: need to recheck in few weeks. Status: Active GERD (530.81) Comments: History of [...] Diagnosis Status: Active Medications Name Dates Details Lisinopril-Hydrochlorothiazide 10-12.5 MG Oral Tablet 1/2 Tablet bid for 0 days Quantity: 60 {Tablet} Refills: 0 Ordered:11-May-2018 Willy Laurent DO, DO, Kathleen Start : 11-May-2018 Active PriLOSEC 20 MG Oral Capsule Delayed Release 1 (one) Capsule DR two times daily for 30 days Quantity: 60 {Capsule} Refills: 6 Ordered:20-Mar-2018 Willy Laurent DO, DO, Kathleen Start : [...] 30-Sep-2017 End : 30-Oct-2017 Inactive EXCEDRIN MIGRAINE, [phone] (Oral Tablet) 1 prn for migraines (250-250-65 [...] abdomen /pelvis:Unremarkable bowel gas pattern. Bilateral basilar infiltrate/atelectsis.(9-16-15).Denies loose stools Status: Resolved as of 25-Aug-2017 [...] and Lateral Result: Comments: See Note; NOTES: [facility] Imaging Services [address] [place] [address] Chest PA and Lateral MR#: [id number] Acct: [id number] Name: ANABELLA MICHEL Rep #: [id number] : 1960 F 57 From: Madi Sheikh DO PCP: Billie Laurent DO Status: REG CLI Study: Chest PA and Lateral Date of Exam: 09/24/17 Exam# [id number] Ordering Dr: Billie Laurent DO STUDY: X-RAY [...] No demonstrated acute cardiopulmonary process. Electronically Signed: Madibronwyn Sheikh DO at 11:04 EDT Tel , Service support , CC: Billie Laurent DO Tubing Supervisor: Signed 25-Aug-2017 Chest PA and Lateral Result: Comments: See Note; NOTES: [facility] Imaging Services [address] [place] [address] Chest PA and Lateral MR#: [id number] Acct: [id number] Name: ANABELLA MICHEL Rep #: [id number] : 1960 F 57 From: Tato Knox MD PCP: Billie Laurent DO Status: REG CLI Study: Chest PA and Lateral Date of Exam: 08/25/17 Exam# [id number] Ordering Dr: Billie Laurent DO STUDY: X- [...] Tato Knox MD at 14:06 EST Tel [phone], Service support , CC: Billie Laurent DO Tubing Supervisor: Signed 16-Feb-2016 Bilat Scrn Digital AND CAD Result: Comments: See Note; NOTES: [facility] Imaging Services [address] [place] [address] Verdana 4d Bilat Scrn Digital AND CAD MR#: [id number] Acct: [id number] Name: ANABELLA MICHEL Rep #: [id number] : 1960 F 55 From: Tato Knox MD PCP: Fermin Oviedo Status: REG CLI Study: Bilat Scrn Digital AND CAD Date of Exam: 02/16/16 Exam# [id number] Ordering Dr: Bertha Richardson MD MAMMOGRAPHY - [...] delay biopsy of a clinically suspicious abnormality. [id number] Electronically Signed: Tato Knox MD a t 15:42 EDT Tel [phone], Service support [phone], CC: Fermin Oviedo; Sima Richardson MD Tubing Supervisor: Signed Family History Unknown Family Member Name Dates Details Father Comments: diabestes, htn Status: Active Mother Comments: ulcerated colitis Status: Active Social History Name Dates Details No Caffeine Use Status: Active No Drug Use Status: Active Non Drinker/No Alcohol Use Status: Active Non Smoker/No Tobacco Use Status: Active Vital Signs Date Test Result Details :31 Comments: her machine 132/82 Pulse 88 [...] kg/m2 Body Surface Area Calculated 2 m2 25-Vyz-974338:35 Comments: 142/102 catapress given 0.1mg at 11:40 [...] kg/m2 Body Surface Area Calculated 2 m2 42-Rrs-111700:42 Temperature 98.8 f Comments: Method: Temporal Pulse [...] kg/m2 Body Surface Area Calculated 2 m2 47-Rfj-443639:43 Pulse 106 /min Comments: Pattern: Regular Respiration [...] kg/m2 Body Surface Area Calculated 1.99 m2 97-Ios-577801:47 Height 62 in :20 Temperature 98.5 f [...] Weight 221.2 lb :51 Comments: 128/78, 89 jiikt106/72, 92 hyxblnl185/68, 95 standing Temperature 98.7 f Pulse 90 /min Comments: Pattern: Regular Respiration Rate 16 /min Comments: Pattern: Unlabored O2 SAT 99 % Comments: Room air BP Systolic 128 mm[Hg] Comments: Patient Position: Sitting; Cuff Location: Left Arm; Cuff Size: Standard BP Diastolic 80 mm[Hg] Comments: Patient Position: Sitting; Cuff Location: Left Arm; Cuff Size: Standard Weight 216 lb Results Date Description Value Details :55 Microscopic Examination Comments: PATIENT NOT FASTINGPERFORMED BY: [facility] [id number] Bacteria None seen (Normal) Mucus Threads Present (Normal) Epithelial Cells (non renal) None seen {/hpf} (Normal) Range: 0 - 10 RBC 0-2 {/hpf} (Normal) Range: 0 - 2 WBC 0-5 {/hpf} (Normal) Range: 0 - 5 9-Ima-656584:55 URINALYSIS, W/ MICRO (30495) Comments: PATIENT NOT FASTINGPERFORMED BY: [facility] [id number] Microscopic Examination See below: (Normal) Comments: Microscopic was indicated and was performed. Nitrite, Urine Negative (Normal) Urobilinogen,Semi-Qn 0.2 mg/dL (Normal) Range: 0.2-1.0 Bilirubin Negative (Normal) Occult Blood Negative (Normal) Ketones Negative (Normal) Glucose Negative (Normal) Protein Negative (Normal) WBC Esterase 1+ (Abnormal) Appearance Clear (Normal) Urine-Color Yellow (Normal) pH 6.5 (Normal) Range: 5.0-7.5 Specific Red House 1.016 (Normal) Range: 1.005-1.030 5-Jwj-044581:55 METABOLIC PANEL, COMPREHENSIVE Comments: PATIENT NOT FASTINGPERFORMED BY: [facility] [id number] (97633) ALT (SGPT) 14 [iU]/L (Normal) Range: 0-32 [...] 6-24 Glucose 89 mg/dL (Normal) Range: 65-99 8-Kco-682135:55 CBC W/AUTO DIFF WBC (92752) Comments: PATIENT NOT FASTINGPERFORMED BY: [facility] Zfuupk2803 [facility] [id number] Immature Grans (Abs) 0.0 {x10E3/uL} (Normal) Range: [...] 3.77-5.28 WBC 8.5 {x10E3/uL} (Normal) Range: 3.4-10.8 43-Lmr-072239:45 Microscopic Examination Comments: PATIENT WAS FASTINGPERFORMED BY: [employer] [facility] [id number] Bacteria Few (Normal) Mucus Threads Present (Normal) Epithelial Cells (non renal) 0-10 {/hpf} (Normal) Range: 0 - 10 RBC None seen {/hpf} (Normal) Range: 0 - 2 WBC 0-5 {/hpf} (Normal) Range: 0 - 5 :45 URINALYSIS, W/ MICRO (84696) Comments: PATIENT WAS FASTINGPERFORMED BY: Ziliko [facility] HospitalQuaamFirstHealth [facility] [id number] Microscopic Examination See below: (Normal) Comments: Microscopic was indicated and was performed. Nitrite, Urine Negative (Normal) Urobilinogen,Semi-Qn 0.2 mg/dL (Normal) Range: 0.2-1.0 Bilirubin Negative (Normal) Occult Blood Negative (Normal) Ketones Trace (Abnormal) Glucose Negative (Normal) Protein Negative (Normal) WBC Esterase Trace (Abnormal) Appearance Clear (Normal) Urine-Color Yellow (Normal) pH 6.0 (Normal) Range: 5.0-7.5 Specific [place] 1.014 (Normal) Range: 1.005-1.030 34-Ckw-849752:45 MICROALBUMIN: CREATININE RATIO Comments: PATIENT WAS FASTINGPERFORMED BY: [employer] [facility] [id number] (30433) AND (24458) Alb/Creat Ratio 8.4 {mg/g_creat} (Normal) Range: 0.0-30.0 Albumin, Urine 3.9 ug/mL (Normal) Creatinine, Urine 46.4 mg/dL (Normal) 79-Kkf-562370:45 METABOLIC PANEL, COMPREHENSIVE Comments: PATIENT WAS FASTINGPERFORMED BY: [employer] [facility] [id number] (37219) ALT (SGPT) 18 [iU]/L (Normal) Range: 0-32 [...] Glucose, Serum 88 mg/dL (Normal) Range: 65-99 99-Xxd-364273:45 LIPID PANEL (01152) Comments: PATIENT WAS FASTINGPERFORMED BY: LabCoLour[facility] Center of Burlington CountyRbbewf9422 [facility] [id number] LDL/HDL Ratio 2.3 {ratio_units} (Normal) Range: 0.0-3.2 Comments: LDL/HDL Ratio Men Women 1/2 Avg.Risk 1.0 1.5 Av g.Risk 3.6 3.2 2X Avg.Risk 6.2 5.0 3X Avg.Risk 8.0 6.1 LDL Cholesterol Calc 146 mg/dL (Abnormal) Range: 0-99 VLDL Cholesterol Darwin 17 mg/dL (Normal) Range: 5-40 HDL Cholesterol 63 mg/dL (Normal) Triglycerides 83 mg/dL (Normal) Range: 0-149 Cholesterol, Total 226 mg/dL (Abnormal) Range: 100-199 76-Wrd-564162:45 CBC W/AUTO DIFF WBC (69314) Comments: PATIENT WAS FASTINGPERFORMED BY: [facility] Dlxzeb8090 [facility] [id number] Immature Grans (Abs) 0.0 {x10E3/uL} (Normal) Range: [...] 3.77-5.28 WBC 8.5 {x10E3/uL} (Normal) Range: 3.4-10.8 03-Ksu-933512:26 VIRAL CULTURE (79510) Comments: throat; PATIENT NOT FASTINGPERFORMED BY: [facility] [address] [id number] Information: THROAT SRC: [id number] Viral Culture, General No virus isolated. (Normal) 13-Amm-377799:26 Throat Culture (62076) Comments: PATIENT NOT FASTINGPERFORMED BY: [employer] Dxnflb1690 [facility] [id number] Information: SRC: Result 1 RRF (Normal) Comments: Routine respiratory jose Upper Respiratory Culture Final report (Normal) 07-Fie-160085:44 Rapid Strep Test, Office (69752) Rapid Strep Test, Office Negative (Normal) 8-Jpp-576590:24 Rapid Flu (94187 x 2) Influenza A Ag Negative (Normal) :05 Celiac Disease Comphrehensive Comments: PATIENT NOT FASTINGPERFORMED BY: [facility]il[facility] [id number] Information: 990017,[id number] Profile (84567) Immunoglobulin A, Qn, Serum 200 mg/dL (Normal) [...] Positive >30 :05 CBC with auto diff (92183) Comments: PATIENT NOT FASTINGPERFORMED BY: [employer] Hekpwd3090 [facility] [id number] Hematology Comments: Note: (Normal) Comments: Verified by [...] 3.77-5.28 WBC 8.3 {x10E3/uL} (Normal) Range: 3.4-10.8 45-Vtq-779686:54 Amylase (04262) Comments: PATIENT NOT FASTINGPERFORMED BY: [employer] Xysifv0482 [facility] [id number] BY: [facility] [id number] Amylase, Serum 47 U/L (Normal) Range: 31-124 :54 Lipase (51026) Comments: PATIENT NOT FASTINGPERFORMED BY: [facility]goLour[facility] Center of Burlington CountyVdgzfb9346 [facility] [id number] BY: [address] [id number] Lipase, Serum 34 U/L (Normal) Range: 0-59 08-Ovq-474341:54 HELICOBACTER PYLORI Comments: PATIENT NOT FASTINGPERFORMED BY: [address] [id number] BY: [address] [id number] ANTIBODY PROFILE IgG, IgM, IgA (22981) H. pylori, IgG Abs <0.9 U/mL (Normal) Range: 0.0-0.8 Comments: Negative <0.9 Indeterminate 0.9 - 1.0 Positive >1.0 02-Bmb-866566:54 Sed Rate Erythrocyte Comments: PATIENT NOT FASTINGPERFORMED BY: [place] [id number] [facility] [id number] BY: [address] [id number] (16395) Sedimentation Rate-Westergren 53 mm/h (Abnormal) Range: 0-40 20-Cir-693009:54 Metabolic Panel, Comments: PATIENT NOT FASTINGPERFORMED BY: [address] [id number] BY: [address] [id number] Comprehensive (97151) ALT (SGPT) 14 [iU]/L (Normal) Range: 0-32 [...] Glucose, Serum 91 mg/dL (Normal) Range: 65-99 75-Xpo-330182:54 Soluble Transferrin Comments: PATIENT NOT FASTINGPERFORMED BY: Ziliko [facility] [id number] BY: [place] [id number] Receptor (48164) Soluble Transferrin Receptor 44.2 nmol/L (Abnormal) Range: 12.2-27.3 01-Vlq-315013:54 SPEP (25520) Comments: PATIENT NOT FASTINGPERFORMED BY: FastDue[address] [place] [address] [id number] BY: [place] [id number] Please note: SPR (Normal) Comments: Protein electrophoresis scan will follow via computer, mail, orcourier delivery. A/G Ratio 1.1 (Normal) Range: 0.7-2.0 Globulin, Total 3.6 g/dL (Normal) Range: 2.0-4.5 M-Isrrael Not Observed g/dL (Normal) Gamma Globulin 1.3 g/dL (Normal) Range: 0.5-1.6 Beta Globulin 1.2 g/dL (Normal) Range: 0.6-1.3 Oeemw-2-Zuqbaihr 0.9 g/dL (Normal) Range: 0.4-1.2 Fwznw-5-Spjbeaws 0.2 g/dL (Normal) Range: 0.1-0.4 Albumin 3.8 g/dL (Normal) Range: 3.2-5.6 :54 UPEP (71022) Comments: PATIENT NOT FASTINGPERFORMED BY: [place] 7909570 [facility] [id number] BY: [address] [id number] Please note: SPRCS (Normal) Comments: Protein electrophoresis scan will follow via computer, mail, orcourier delivery. M-Isrrael, % Not Observed % (Normal) Gamma Globulin, U 34.1 % (Normal) Beta Globulin, U 30.6 % (Normal) Gxzsq-3-Ibsnbgzg, U 14.3 % (Normal) Gwzvk-2-Iazasvgl, U 2.2 % (Normal) Albumin, U 18.8 % (Normal) Protein,Total,Urine 4.2 mg/dL (Normal) Range: 0.0-15.0 62-Kdv-953147:54 CARLOS TEST, DIRECT Comments: PATIENT NOT FASTINGPERFORMED BY: [place] 7909570 [facility] [id number] BY: [address] [id number] (66328) Carlos', Direct Negative (Normal) 30-Kob-022922:54 FOLIC ACID SERUM (97548) Comments: PATIENT NOT FASTINGPERFORMED BY: [facility] [id number] BY: [address] [id number] Folate (Folic Acid), Serum 13.4 ng/mL (Normal) Comments: A serum folate concentration of less than 3.1 ng/mL isconsidered to represent clinical deficiency. 62-Czd-154761:54 Methymalonic Acid, Serum Comments: PATIENT NOT FASTINGPERFORMED BY: [address] [id number] BY: [address] [id number] (18151) Methylmalonic Acid, Serum 196 nmol/L (Normal) Range: 0-378 48-Grf-900139:54 VITAMIN B-12 Comments: PATIENT NOT FASTINGPERFORMED BY: [employer] Mnwgno4508 [facility] [id number] BY: [address] [id number] (CYANOCOBALAMIN) (48289) Vitamin B12 1299 pg/mL (Abnormal) Range: 211-946 10-Fjx-018124:54 RETICULOCYTE COUNT MANUL Comments: PATIENT NOT FASTINGPERFORMED BY: [employer] LabSlant[facility] Media Group LLCLourdes Medical Center of Burlington CountyKcqehi4057 [facility] [id number] BY: [address] [id number] (27066) Reticulocyte Count 1.0 % (Normal) Range: 0.6-2.6 00-Fni-873658:54 LDH (LD) (LACTATE Comments: PATIENT NOT FASTINGPERFORMED BY: [place] 7909570 [facility] [id number] BY: [address] [id number] DEHYDROGENASE) (18371) LDH 159 [iU]/L (Normal) Range: 119-226 :54 IRON BINDING CAPACITY Comments: PATIENT NOT FASTINGPERFORMED BY: OpargoLourdes Medical Center of Burlington CountyQkhmnn5279 [facility] [id number] BY: [address] [id number] (TIBC) (91738) Iron Saturation 4 % (Abnormal) Range: 15-55 Iron, Serum 15 ug/dL (Abnormal) Range: 35-155 UIBC 363 ug/dL (Normal) Range: 150-375 Iron Bind.Cap.(TIBC) 378 ug/dL (Normal) Range: 250-450 :54 FERRITIN (91114) Comments: PATIENT NOT FASTINGPERFORMED BY: [place] 7909570 [facility] [id number] BY: [address] [id number] Ferritin, Serum 5 ng/mL (Abnormal) Range: 15-150 74-Mmm-335780:54 HAPTOGLOBIN (98872) Comments: PATIENT NOT FASTINGPERFORMED BY: LabCoLourdes Medical Center of Burlington CountyYuqvpi9235 [facility] [id number] BY: LabCoLisa [place] 593517 [facility] [id number] Haptoglobin 282 mg/dL (Abnormal) Range: 34-200 39-Cpt-221330:54 CBC, PLATELETS & AUT DIFF Comments: PATIENT NOT FASTINGPERFORMED BY: LabCoLourdes [facility] Center of Burlington CountyGhsyhj5893 [facility] [id number] BY: LabCoL[place] 593517 [facility] [id number] Information: 366765,K50051 (26590) Immature Grans (Abs) 0.0 {x10E3/uL} (Normal) Range: [...] Eprescribed prescriptions (G8553) Indication: Non-smoker Planned Observations METABOLIC PANEL, COMPREHENSIVE (14992)Indication: HTN (hypertension), benign On: 69-Aua-46229:56 Request LIPOPROTEIN, BLD, BY NMR (62599)Indication: HTN (hypertension), benign On: :56 Request CBC W/AUTO DIFF WBC (35274)Indication: HTN (hypertension), benign On: :56 Request OVA & PARASITE DIR SMEAR (92018)Indication: DIARRHEA (Renamed from D (diarrhea)) On: :41 Request OCCULT BLOOD FECES SCREEN (26050)Indication: DIARRHEA (Renamed from D (diarrhea)) On: :41 Request LEUKOCYTE COUNT, FECAL (22835)Indication: DIARRHEA (Renamed from D (diarrhea)) On: :41 Request C-DIFFICILE, STOOL (58737)Indication: DIARRHEA (Renamed from D (diarrhea)) On: :41 Request SHANNAN CULTURE-STOOL (57211)Indication: DIARRHEA (Renamed from D (diarrhea)) On: :41 Request FECAL OCCULT- Tubes sent home (97648)Indication: ANEMIA, UNSPECIFIED On: 14-Ihk-810958:40 Request IRON (97790)Indication: ANEMIA, UNSPECIFIED On: :40 Request Planned Encounters Medical; 4 Month FU - On: 14-Aug-2018 9:30 [facility] Billie Laurent DO, DO, Kathleen Planned Procedures MAMMOGRAM BREAST BILATERAL On: 11-May-2018 Intent SCREENING DIGITAL (34819)By: Billie Laurent DO, DO, Kathleen ELECTROCARDIOGRAM, COMPLETE (ECG) On: 20-Apr-2018 Intent (98751)By: Aimee Rivera Comments: nsr no avute chg ELECTROCARDIOGRAM, COMPLETE (ECG) On: 30-Sep-2017 Intent (88715)By: Billie Laurent DO Comments: nsr poor R wave progression no acute chg Billie Laurent DO Radiology - Chest- PA and LatBy: On: 24-Sep-2017 Intent Billie Laurent DO, DO, Comments: follow on abnormality 08/31 Billie Solu- Medrol Injection, 125mg On: 27-Aug-2017 Intent (J2930)By: Billie Laurent DO Comments: [id number] vialMLONG Billie Laurent DO Aerosol Treatment (33034)By: On: 27-Aug-2017 Intent Billie Laurent DO, DO, Comments: less velcro noise more a/e less reactive cough Billie Solu -Medrol Injection, 125 mg On: 25-Aug-2017 Intent (J2930)By: Billie Laurent DO Comments: solumedrol 125mg injectionlot: [id number]: 12/2019R GMpt tolerated wellAD DIRECTOR OF 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 DEVELOPMENT Billie Laurent DO Rocephin Injection, 2 Gram On: 25-Aug-2017 Intent (J0696)By: Billie Laurent DO Comments: rochephin 2gm injection diluted in 4.2cc of 2% lidocainelot: [id number]: 05/2019L and R GM, 1gm in bothpt tolerated wellAD DIRECTOR OF RESEARCH AND DEVELOPMENT Billie Laurent DO Aerosol Treatment (33491)By: On: 25-Aug-2017 Intent Billie Laurent DO, DO, Comments: more a;e-- left side clearly rhonhci and exp wheeeze other side that was quiet now more a/e -- is wheezy in RLL too Billie Radiology - Chest- PA and LatBy: On: 25-Aug-2017 Intent Billie Laurent DO, DO, Kathleen Aerosol Treatment (40944)By: Rose On: 19-Aug-2017 Intent Leslee LOZADA Spirometry (03603)By: Rose LOZADA, On: 19-Aug-2017 Intent Leslee Villafuerte Comments: mild restriction ELECTROCARDIOGRAM, COMPLETE (ECG) On: 28-Sep-2015 Intent (37213)By: Fermin Oviedo MD Radiology - Foot - LeftBy: Ivelisse On: 28-Sep-2015 Intent Fermin PALAFOX Planned Medications INJECTION, CEFTRIAXONE SODIUM, PER 250 MG Ordered: 25-Aug-2017 Pending Billie Laurent DO, DO, Billie INJECTION, METHYLPREDNISOLONE SODIUM SUCCINATE, UP TO 125 MG Ordered: 25-Aug-2017 Pending Billie Laurent DO, DO, Billie INJECTION, METHYLPREDNISOLONE SODIUM SUCCINATE, UP TO 125 MG Ordered: 27-Aug-2017 Pending Billie Laurent DO, DO, Kathleen Instructions Name Dates Details HTN (hypertension), benign : Patient Instructions Indication: [...] Non-smoker : Patient Instructions Indication: Non-smoker Encounters Annotation/Addendum On: 11-May-2018 13:23 Encounter Diagnosis: Screening [...]
--- OUTSIDE RECORDS SUMMARY | 2018-10-05 22:58 | XMS RPT_ITS | Continuity of Care Document ---
:1960 Author Organization [facility] Address [address] [facility] [address] [place] [address] Phone Care Team Providers Name Role Phone Billie Laurent DO Unavailable Dr. Sandoval Enrique Unavailable Bianca Fonseca Unavailable Dr. 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 BMI 40.46.Cost 300 $ [...] Diagnosis Status: Active Medications Name Dates Details Clobetasol Propionate 0.05 % External Cream apply to affected area Cream two times daily for 30 days Quantity: 1 {Tube} Refills: 0 Ordered:29-Jun-2018 Willy Laurent DO, DO, Kathleen Start : 29-Jun-2018 End : 30-Oct-2017 Active Lisinopril-Hydrochlorothiazide 10-12.5 MG Oral Tablet 1/2 Tablet bid for 60 days Quantity: 60 {Tablet} Refills: 0 Ordered:18-Jun-2018 MehranWilly mckee DO, DO, Kathleen Start : 18-Jun-2018 Active PriLOSEC 20 MG Oral Capsule Delayed Release 1 (one) Capsule DR two times daily for 30 days Quantity: 60 {Capsule} Refills: 6 Ordered:30-Sep-2017 MehranWilly mckee DO, DO, Kathleen Start : 30-Sep-2017 Active Comments:30 minutes before meals Albuterol Sulfate (2.5 MG/3ML) 0.083% Inhalation Nebulization Solution 1 (one) Milliliter q 6hr prn for 0 days Quantity: 1 {Box} Refills: 0 Ordered:20-Apr-2018 Aimee Rivera Start : 27-Aug-2017 End : 20-Apr-2018 Inactive Amoxicillin 500 MG Oral Capsule 1 (one) Capsule Capsule q12h for 10 days Quantity: 20 {Capsule} Refills: 0 Ordered:26-Aug-2017 MehranWilly mckee DO, DO, Kathleen Start : 19-Aug-2017 End [...] Start : 19-Aug-2017 End : 02-Sep-2017 Inactive Clotrimazole 10 MG Mouth/Throat Robert 1 (one) Robert 5x daily for 10 days Quantity: 50 {Robert} Refills: 0 Ordered:09-Jun-2018 Leslee Rose CNP Start : 09-Jun-2018 End : 19-Jun-2018 Inactive EXCEDRIN MIGRAINE, [phone] (Oral Tablet) 1 prn for migraines (250-250-65 [...] and Lateral Result: Comments: See Note; NOTES: [facility] Imaging Services [address] [place] [address] Chest PA and Lateral MR#: [id number] Acct: [id number] Name: ANABELLA MICHEL Rep #: [id number] : 1960 F 57 From: Madi Sheikh DO PCP: Billie Laurent DO Status: REG CLI Study: Chest PA and Lateral Date of Exam: 09/24/17 Exam# [id number] Ordering Dr: Billie Laurent DO STUDY: X-RAY [...] Service support , CC: Billie Laurent DO Licensing Manager: Signed 25-Aug-2017 Chest PA and Lateral Result: Comments: See Note; NOTES: [facility] Imaging Services [address] [place] [address] Chest PA and Lateral MR#: [id number] Acct: [id number] Name: ANABELLA MICHEL Rep #: [id number] : 1960 F 57 From: Tato Knox MD PCP: Billie Laurent DO Status: REG CLI Study: Chest PA and Lateral Date of Exam: 08/25/17 Exam# [id number] Ordering Dr: Billie Laurent DO STUDY: X- [...] suggestive of early infiltrate. Electronically Signed: Tato Knxo MD at 14:06 EST Tel [phone], Service support , CC: Billie Laurent DO Licensing Manager: Signed 16-Feb-2016 Bilat Scrn Digital AND CAD Result: Comments: See Note; NOTES: [facility] Imaging Services [address] [place] [address] Verdana 4d Bilat Scrn Digital AND CAD MR#: [id number] Acct: [id number] Name: ANABELLA MICHEL Rep #: [id number] : 1960 F 55 From: Tato Knox MD PCP: Fermin Oviedo Status: [facility] Study: Bilat Scrn Digital AND CAD Date of Exam: 02/16/16 Exam# [id number] Ordering Dr: Bertha Richardson MD MAMMOGRAPHY - [...] delay biopsy of a clinically suspicious abnormality. [id number] Electronically Signed: Tato Knox MD a t 15:42 EDT Tel [phone], Service support [phone], CC: Fermin Oviedo; Sima Richardson MD Licensing Manager: Signed Family History Unknown Family Member Name Dates Details Father Comments: diabestes, htn Status: Active Mother Comments: ulcerated colitis Status: Active Social History Name Dates Details No Caffeine Use Status: Active No Drug Use Status: Active Non Drinker/No Alcohol Use Status: Active Non Smoker/No Tobacco Use Status: Active Vital Signs Date Test Result Details 25-Cnq-270179:17 Temperature 97.5 f Pulse 83 /min Comments: [...] kg/m2 Body Surface Area Calculated 2 m2 69-Uzx-430080:35 Comments: 142/102 catapress given 0.1mg at 11:40 [...] Weight 221.2 lb :51 Comments: 128/78, 89 gtcus468/72, 92 wlnancr203/68, 95 standing Temperature 98.7 f Pulse 90 /min Comments: Pattern: Regular Respiration Rate 16 /min Comments: Pattern: Unlabored O2 SAT 99 % Comments: Room air BP Systolic 128 mm[Hg] Comments: Patient Position: Sitting; Cuff Location: Left Arm; Cuff Size: Standard BP Diastolic 80 mm[Hg] Comments: Patient Position: Sitting; Cuff Location: Left Arm; Cuff Size: Standard Weight 216 lb Results Date Description Value Details 08-Yrz-017597:35 Renal function Panel (34889) Comments: PATIENT NOT FASTINGPERFORMED BY: ElectrochaeaAtlantiCare [facility] Center[facility] Main[facility] CampusVouxbn8492 [facility] [id number] Albumin 4.1 g/dL (Normal) Range: 3.5-5.5 Phosphorus [...] 6-24 Glucose 100 mg/dL (Abnormal) Range: 65-99 92-Amy-957033:35 CBC & PLATELETS (AUTO) Comments: PATIENT NOT FASTINGPERFORMED BY: [facility]Henry [facility] Hospital6370 [facility] [id number] (21815) Platelets 400 {x10E3/uL} (Abnormal) Range: 150-379 RDW 18.3 % (Abnormal) Range: 12.3-15.4 MCHC 32.5 g/dL (Normal) Range: 31.5-35.7 MCH 23.6 pg (Abnormal) Range: 26.6-33.0 MCV 73 fL (Abnormal) Range: 79-97 Hematocrit 34.5 % (Normal) Range: 34.0-46.6 Hemoglobin 11.2 g/dL (Normal) Range: 11.1-15.9 RBC 4.74 {x10E6/uL} (Normal) Range: 3.77-5.28 WBC 9.8 {x10E3/uL} (Normal) Range: 3.4-10.8 94-Mom-543500:35 EBV Panel (31749) Comments: PATIENT NOT FASTINGPERFORMED BY: [facility]Henry [facility]6370 [facility] [id number] Interpretation: SPRCS (Normal) Comments: EBV Interpretation Chart [...] <36.0 Equivocal 36.0 - 43.9 Positive >43.9 44-Gkz-780881:20 Rapid Strep Test, Office (61397) Comments: neg Rapid Strep Test, Office Negative (Normal) 41-Fmc-600784:03 THROAT CULTURE (63083) Comments: PATIENT NOT FASTINGPERFORMED BY: [facility] HealthMissouri Southern HealthcareCpkmnm3781 [facility] [id number] Information: SRC:TH Result 1 RRF (Normal) Comments: Routine respiratory jose Upper Respiratory Culture Final report (Normal) 1-Rry-646294:55 Microscopic Examination Comments: PATIENT NOT FASTINGPERFORMED BY: [facility] Tjrnaf1613 [facility] [id number] Bacteria None seen (Normal) Mucus Threads Present (Normal) Epithelial Cells (non renal) None seen {/hpf} (Normal) Range: 0 - 10 RBC 0-2 {/hpf} (Normal) Range: 0 - 2 WBC 0-5 {/hpf} (Normal) Range: 0 - 5 3-Zte-405963:55 URINALYSIS, W/ MICRO (59522) Comments: PATIENT NOT FASTINGPERFORMED BY: Tictail Nfrorb5656 [facility] [id number] Microscopic Examination See below: (Normal) Comments: Microscopic was indicated and was performed. Nitrite, Urine Negative (Normal) Urobilinogen,Semi-Qn 0.2 mg/dL (Normal) Range: 0.2-1.0 Bilirubin Negative (Normal) Occult Blood Negative (Normal) Ketones Negative (Normal) Glucose Negative (Normal) Protein Negative (Normal) WBC Esterase 1+ (Abnormal) Appearance Clear (Normal) Urine-Color Yellow (Normal) pH 6.5 (Normal) Range: 5.0-7.5 Specific Horn[place] 1.016 (Normal) Range: 1.005-1.030 4-Yyk-814270:55 METABOLIC PANEL, COMPREHENSIVE Comments: PATIENT NOT FASTINGPERFORMED BY: [facility]6370 [facility] [id number] (61743) ALT (SGPT) 14 [iU]/L (Normal) Range: 0-32 [...] 6-24 Glucose 89 mg/dL (Normal) Range: 65-99 9-Xxa-559006:55 CBC W/AUTO DIFF WBC (98120) Comments: PATIENT NOT FASTINGPERFORMED BY: [facility] Csvpae2212 [facility] [id number] Immature Grans (Abs) 0.0 {x10E3/uL} (Normal) Range: [...] 3.77-5.28 WBC 8.5 {x10E3/uL} (Normal) Range: 3.4-10.8 85-Wqq-321809:45 Microscopic Examination Comments: PATIENT WAS FASTINGPERFORMED BY: Electrochaea Ovbwyk0285 [facility] [id number] Bacteria Few (Normal) Mucus Threads Present (Normal) Epithelial Cells (non renal) 0-10 {/hpf} (Normal) Range: 0 - 10 RBC None seen {/hpf} (Normal) Range: 0 - 2 WBC 0-5 {/hpf} (Normal) Range: 0 - 5 86-Ejj-866304:45 URINALYSIS, W/ MICRO (63075) Comments: PATIENT WAS FASTINGPERFORMED BY: Electrochaea Yydjly7772 [facility] [id number] Microscopic Examination See below: (Normal) Comments: Microscopic was indicated and was performed. Nitrite, Urine Negative (Normal) Urobilinogen,Semi-Qn 0.2 mg/dL (Normal) Range: 0.2-1.0 Bilirubin Negative (Normal) Occult Blood Negative (Normal) Ketones Trace (Abnormal) Glucose Negative (Normal) Protein Negative (Normal) WBC Esterase Trace (Abnormal) Appearance Clear (Normal) Urine-Color Yellow (Normal) pH 6.0 (Normal) Range: 5.0-7.5 Specific [place] 1.014 (Normal) Range: 1.005-1.030 22-Ekg-005254:45 MICROALBUMIN: CREATININE RATIO Comments: PATIENT WAS FASTINGPERFORMED BY: [facility]6370 [facility] [id number] (19580) AND (84665) Alb/Creat Ratio 8.4 {mg/g_creat} (Normal) Range: 0.0-30.0 Albumin, Urine 3.9 ug/mL (Normal) Creatinine, Urine 46.4 mg/dL (Normal) 97-Twp-227046:45 METABOLIC PANEL, COMPREHENSIVE Comments: PATIENT WAS FASTINGPERFORMED BY: [facility]6370 [facility] [id number] (51832) ALT (SGPT) 18 [iU]/L (Normal) Range: 0-32 [...] Glucose, Serum 88 mg/dL (Normal) Range: 65-99 73-Sya-611751:45 LIPID PANEL (67721) Comments: PATIENT WAS FASTINGPERFORMED BY: LabCoAtlantiCare Regional Medical Center, Main[facility] CampusEzxzog9129 [facility] [id number] LDL/HDL Ratio 2.3 {ratio_units} (Normal) Range: 0.0-3.2 Comments: LDL/HDL Ratio Men Women 1/2 Avg.Risk 1.0 1.5 Av g.Risk 3.6 3.2 2X Avg.Risk 6.2 5.0 3X Avg.Risk 8.0 6.1 LDL Cholesterol Calc 146 mg/dL (Abnormal) Range: 0-99 VLDL Cholesterol Darwin 17 mg/dL (Normal) Range: 5-40 HDL Cholesterol 63 mg/dL (Normal) Triglycerides 83 mg/dL (Normal) Range: 0-149 Cholesterol, Total 226 mg/dL (Abnormal) Range: 100-199 07-Kip-701457:45 CBC W/AUTO DIFF WBC (93056) Comments: PATIENT WAS FASTINGPERFORMED BY: Lababout.meAtlantiCare Regional Medical Center, Mainland CampusDzidgi8933 [facility] [id number] Immature Grans (Abs) 0.0 {x10E3/uL} (Normal) Range: [...] 3.77-5.28 WBC 8.5 {x10E3/uL} (Normal) Range: 3.4-10.8 00-Fae-741255:26 VIRAL CULTURE (00880) Comments: throat; PATIENT NOT FASTINGPERFORMED BY: [address] [id number] Information: THROAT SRC: [id number] Viral Culture, General No virus isolated. (Normal) 58-Elr-870878:26 Throat Culture (00463) Comments: PATIENT NOT FASTINGPERFORMED BY: Hello HealthAnthony [place] 3360270 [facility] [id number] Information: SRC: Result 1 RRF (Normal) Comments: Routine respiratory jose Upper Respiratory Culture Final report (Normal) 44-Kfr-558470:44 Rapid Strep Test, Office (88690) Rapid Strep Test, Office Negative (Normal) 1-Fmx-857699:24 Rapid Flu (68030 x 2) Influenza A Ag Negative (Normal) :05 Celiac Disease Comphrehensive Comments: PATIENT NOT FASTINGPERFORMED BY: Hello HealthAnthony [place] 3360270 [facility] [id number] Information: 896397,B01820 Profile (70359) Immunoglobulin A, Qn, Serum 200 mg/dL (Normal) [...] Positive >30 15-Aug-20158:05 CBC with auto diff (21953) Comments: PATIENT NOT FASTINGPERFORMED BY: LabCoAtlantiCare Regional Medical Center, Main[facility] CampusUcnwbu3996 [facility] [id number] Hematology Comments: Note: (Normal) Comments: Verified by [...] 3.77-5.28 WBC 8.3 {x10E3/uL} (Normal) Range: 3.4-10.8 81-Bzb-764138:54 Amylase (32506) Comments: PATIENT NOT FASTINGPERFORMED BY: [place] 2043770 [facility] [id number] BY: [address] [id number] Amylase, Serum 47 U/L (Normal) Range: 31-124 48-Qcc-433561:54 Lipase (92074) Comments: PATIENT NOT FASTINGPERFORMED BY: Lab[address] [id number] BY: [address] [id number] Lipase, Serum 34 U/L (Normal) Range: 0-59 19-Nqq-780682:54 HELICOBACTER PYLORI Comments: PATIENT NOT FASTINGPERFORMED BY: [address] [id number] BY: [address] [id number] ANTIBODY PROFILE IgG, IgM, IgA (32304) H. pylori, IgG Abs <0.9 U/mL (Normal) Range: 0.0-0.8 Comments: Negative <0.9 Indeterminate 0.9 - 1.0 Positive >1.0 80-Pgd-897051:54 Sed Rate Erythrocyte Comments: PATIENT NOT FASTINGPERFORMED BY: [place] 2043770 [facility] [id number] BY: [address] [id number] (39031) Sedimentation Rate-Westergren 53 mm/h (Abnormal) Range: 0-40 49-Qjb-972543:54 Metabolic Panel, Comments: PATIENT NOT FASTINGPERFORMED BY: [address] [id number] BY: [address] [id number] Comprehensive (87138) ALT (SGPT) 14 [iU]/L (Normal) Range: 0-32 [...] Glucose, Serum 91 mg/dL (Normal) Range: 65-99 80-Gvd-494567:54 Soluble Transferrin Comments: PATIENT NOT FASTINGPERFORMED BY: [employer] [facility] [id number] BY: Tictail[address] [id number] Receptor (68735) Soluble Transferrin Receptor 44.2 nmol/L (Abnormal) Range: 12.2-27.3 37-Qnv-499676:54 SPEP (42620) Comments: PATIENT NOT FASTINGPERFORMED BY: [employer] [facility] [id number] BY: Tictail[address] [id number] Please note: SPRCS (Normal) Comments: Protein electrophoresis scan will follow via computer, mail, orcourier delivery. A/G Ratio 1.1 (Normal) Range: 0.7-2.0 Globulin, Total 3.6 g/dL (Normal) Range: 2.0-4.5 M-Isrrael Not Observed g/dL (Normal) Gamma Globulin 1.3 g/dL (Normal) Range: 0.5-1.6 Beta Globulin 1.2 g/dL (Normal) Range: 0.6-1.3 Rzhkw-1-Qvwgitqp 0.9 g/dL (Normal) Range: 0.4-1.2 Rczmp-3-Lqlkzkia 0.2 g/dL (Normal) Range: 0.1-0.4 Albumin 3.8 g/dL (Normal) Range: 3.2-5.6 49-Xup-290275:54 UPEP (07369) Comments: PATIENT NOT FASTINGPERFORMED BY: Electrochaea xCloud [facility] [id number] BY: [address] [id number] Please note: SPRCS (Normal) Comments: Protein electrophoresis scan will follow via computer, mail, orcourier delivery. M-Isrrael, % Not Observed % (Normal) Gamma Globulin, U 34.1 % (Normal) Beta Globulin, U 30.6 % (Normal) Yoenr-6-Shvkvnlz, U 14.3 % (Normal) Tpwsc-7-Hbfbeiyi, U 2.2 % (Normal) Albumin, U 18.8 % (Normal) Protein,Total,Urine 4.2 mg/dL (Normal) Range: 0.0-15.0 66-Clv-376919:54 CARLOS TEST, DIRECT Comments: PATIENT NOT FASTINGPERFORMED BY: TictailJohn [place] 5826870 [facility] [id number] BY: [address] [id number] (51966) Carlos', Direct Negative (Normal) 69-Fmt-857353:54 FOLIC ACID SERUM (81624) Comments: PATIENT NOT FASTINGPERFORMED BY: Electrochaea[address] [id number] BY: [address] [id number] Folate (Folic Acid), Serum 13.4 ng/mL (Normal) Comments: A serum folate concentration of less than 3.1 ng/mL isconsidered to represent clinical deficiency. 80-Oas-922786:54 Methymalonic Acid, Serum Comments: PATIENT NOT FASTINGPERFORMED BY: Lababout.me Jxwjbw6550 [facility] [id number] BY: [address] [id number] (40040) Methylmalonic Acid, Serum 196 nmol/L (Normal) Range: 0-378 82-Uga-968417:54 VITAMIN B-12 Comments: PATIENT NOT FASTINGPERFORMED BY: [employer] Lababout.me Gumcfe4051 [facility] [id number] BY: [address] [id number] (CYANOCOBALAMIN) (93513) Vitamin B12 1299 pg/mL (Abnormal) Range: 211-946 04-Zaq-705585:54 RETICULOCYTE COUNT MANUL Comments: PATIENT NOT FASTINGPERFORMED BY: Electrochaea Iivaur4692 [facility] [id number] BY: [address] [id number] (31863) Reticulocyte Count 1.0 % (Normal) Range: 0.6-2.6 97-Nxt-719867:54 LDH (LD) (LACTATE Comments: PATIENT NOT FASTINGPERFORMED BY: Lababout.merp Nrstsr7902 [facility] [id number] BY: [address] [id number] DEHYDROGENASE) (71630) LDH 159 [iU]/L (Normal) Range: 119-226 17-Vrw-902945:54 IRON BINDING CAPACITY Comments: PATIENT NOT FASTINGPERFORMED BY: [employer] Lababout.merp Nmhtvm8106 Khan [facility] [id number] BY: [address] [id number] (TIBC) (25434) Iron Saturation 4 % (Abnormal) Range: 15-55 Iron, Serum 15 ug/dL (Abnormal) Range: 35-155 UIBC 363 ug/dL (Normal) Range: 150-375 Iron Bind.Cap.(TIBC) 378 ug/dL (Normal) Range: 250-450 61-Qdc-316712:54 FERRITIN (36983) Comments: PATIENT NOT FASTINGPERFORMED BY: [employer]6370 [facility] [id number] BY: Tictail[address] [id number] Ferritin, Serum 5 ng/mL (Abnormal) Range: 15-150 72-Uoo-996662:54 HAPTOGLOBIN (80269) Comments: PATIENT NOT FASTINGPERFORMED BY: [employer] Lababout.merp Ycdsqr0141 [facility] [id number] BY: Tictail[address] [id number] Haptoglobin 282 mg/dL (Abnormal) Range: 34-200 63-Rjp-292200:54 CBC, PLATELETS & AUT DIFF Comments: PATIENT NOT FASTINGPERFORMED BY: [employer]70 [facility] [id number] BY: Tictail[address] [id number] Information: 338604,I15591 (03246) Immature Grans (Abs) 0.0 {x10E3/uL} (Normal) Range: [...] Non-smoker Planned Observations IRON BINDING CAPACITY (TIBC) (35499)Indication: Fatigue On: 26-Jnd-705924:34 Request LEAD (75583)Indication: Fatigue On: 17-Bgb-344677:34 Request FERRITIN (68256)Indication: Fatigue On: 05-Vdz-477964:34 Request IRON (32360)Indication: Fatigue On: 24-Jwb-297473:34 Request METABOLIC PANEL, COMPREHENSIVE (09310)Indication: HTN (hypertension), benign On: :56 Request LIPOPROTEIN, BLD, BY NMR (22111)Indication: HTN (hypertension), benign On: :56 Request CBC W/AUTO DIFF WBC (03525)Indication: HTN (hypertension), benign On: :56 Request OVA & PARASITE DIR SMEAR (44999)Indication: DIARRHEA (Renamed from D (diarrhea)) On: :41 Request OCCULT BLOOD FECES SCREEN (07289)Indication: DIARRHEA (Renamed from D (diarrhea)) On: :41 Request LEUKOCYTE COUNT, FECAL (38612)Indication: DIARRHEA (Renamed from D (diarrhea)) On: :41 Request C-DIFFICILE, STOOL (92233)Indication: DIARRHEA (Renamed from D (diarrhea)) On: :41 Request SHANNAN CULTURE-STOOL (28863)Indication: DIARRHEA (Renamed from D (diarrhea)) On: 19-Bid-755067:41 Request FECAL OCCULT- Tubes sent home (91681)Indication: ANEMIA, UNSPECIFIED On: 05-Nxr-368191:40 Request IRON (12074)Indication: ANEMIA, UNSPECIFIED On: 30-Psx-502205:40 Request Planned Encounters Medical; Other symptoms - rash On: 06-Jul-2018 10:15 [facility] Billie Laurent DO, DO, Kathleen Medical; 4 Month FU - On: 14-Aug-2018 9:30 [facility] Billie Laurent DO, DO, Kathleen Planned Procedures MAMMOGRAM BREAST BILATERAL On: 11-May-2018 Intent SCREENING DIGITAL (53576)By: Billie Laurent DO, DO, Kathleen ELECTROCARDIOGRAM, COMPLETE (ECG) On: 20-Apr-2018 Intent (59558)By: Aimee Rivera Comments: nsr no avute chg ELECTROCARDIOGRAM, COMPLETE (ECG) On: 30-Sep-2017 Intent (67261)By: Billie Laurent DO Comments: nsr poor R wave progression no acute chg Billie Laurent DO Radiology - Chest- PA and LatBy: On: 24-Sep-2017 Intent Billie Laurent DO, DO, Comments: follow on abnormality 08/31 Billie Solu- Medrol Injection, 125mg On: 27-Aug-2017 Intent (J2930)By: Billie Laurent DO Comments: [id number]/[id number] vialMLONG Billie Laurent DO Aerosol Treatment (22760)By: On: 27-Aug-2017 Intent Billie Laurent DO, DO, Comments: less velcro noise more a/e less reactive cough Billie Solu -Medrol Injection, 125 mg On: 25-Aug-2017 Intent (J2930)By: Billie Laurent DO Comments: solumedrol 125mg injectionlot: [id number]: 12/2019R GMpt tolerated wellAD ROTARY SOIL STABILIZER OPERATOR Billie Laurent DO Rocephin Injection, 2 Gram On: 25-Aug-2017 Intent (J0696)By: Billie Laurent DO Comments: rochephin 2gm injection diluted in 4.2cc of 2% lidocainelot: 4516A30wmy: 05/2019L and R GM, 1gm in bothpt tolerated wellAD ROTARY SOIL STABILIZER OPERATOR Mehran DO, Billie Aerosol Treatment (12873)By: On: 25-Aug-2017 Intent Mehran DO, Billie Mehran DO, Comments: more a;e-- left side clearly rhonhci and exp wheeeze other side that was quiet now more a/e -- is wheezy in RLL too Billie Radiology - Chest- PA and LatBy: On: 25-Aug-2017 Intent Mehran DO, Billie Mehran DO, Billie Aerosol Treatment (13512)By: Rsoe On: 19-Aug-2017 Intent Leslee LOZADA Spirometry (31462)By: Rose LOZADA, On: 19-Aug-2017 Intent Amy Comments: mild restriction ELECTROCARDIOGRAM, COMPLETE (ECG) On: 28-Sep-2015 Intent (52645)By: Fermin Oviedo MD Radiology - Foot - LeftBy: Ivelisse On: 28-Sep-2015 Intent Fermin PALAFOX Planned Medications INJECTION, CEFTRIAXONE SODIUM, PER 250 MG Ordered: 25-Aug-2017 Pending Mehran DO, Billie [...] for Nausea: Started lsinopril before trip to [place] then BP too low, then dose decreased [...] Diverticular disease [facility] Payers Adriane DVAIS/Meseret Michel; a guarantor
--- OUTSIDE RECORDS SUMMARY | 2018-10-05 22:59 | XMS RPT_ITS | Continuity of Care Document ---
:1960 Author Organization [facility] Address [address] [facility] [address] [place] [address] Phone Care Team Providers Name Role Phone Billie Laurent DO Unavailable Dr. Sandoval Enrique Unavailable Bianca Fonseca Unavailable Dr. 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 BMI 40.46.Cost 300 [...] Quantity: 120 {Milliliter} Refills: 0 Ordered:02-Sep-2017 Nya Oliavrez LPN Start : 19-Aug-2017 End : 02-Sep-2017 Inactive Clobetasol Propionate 0.05 % External Cream apply to affected area Cream two times daily for 30 days Quantity: 1 {Tube} Refills: 0 Ordered:30-Sep-2017 Willy Laurent DO, DO, Kathleen Start : 30-Sep-2017 End : 30-Oct-2017 Inactive EXCEDRIN MIGRAINE, [id number] (Oral Tablet) 1 prn for migraines (250-250-65 [...] and Lateral Result: Comments: See Note; NOTES: [facility] Imaging Services [address] [place] [address] Chest PA and Lateral MR#: [id number] Acct: [id number] Name: ANABELLA MICHEL Rep #: [id number] : 1960 F 57 From: Madi Sheikh DO PCP: Billie Laurent DO Status: REG CLI Study: Chest PA and Lateral Date of Exam: 09/24/17 Exam# [id number] Ordering Dr: Billie Laurent DO STUDY: X-RAY [...] Service support , CC: Billie Laurent DO Telesales Representative: Signed 25-Aug-2017 Chest PA and Lateral Result: Comments: See Note; NOTES: [facility] Imaging Services [address] [place] [address] Chest PA and Lateral MR#: [id number] Acct: [id number] Name: ANABELLA MICHEL Rep #: [id number] : 1960 F 57 From: Tato Knox MD PCP: Billie Laurent DO Status: REG CLI Study: Chest PA and Lateral Date of Exam: 08/25/17 Exam# [id number] Ordering Dr: Billie Laurent DO STUDY: X- [...] Tato Knox MD at 14:06 EST Tel [phone], Service support , CC: Billie Laurent DO Telesales Representative: Signed 16-Feb-2016 Bilat Scrn Digital AND CAD Result: Comments: See Note; NOTES: [facility] Imaging Services [address] [place] [address] Verdana 4d Bilat Scrn Digital AND CAD MR#: [id number] Acct: [id number] Name: ANABELLA MICHEL Rep #: [id number] : 1960 F 55 From: Tato Knox MD PCP: Fermin Oviedo Status: REG CL Study: Bilat Scrn Digital AND CAD Date of Exam: 02/16/16 Exam# [id number] Ordering Dr: Bertha Richardson MD MAMMOGRAPHY - [...] delay biopsy of a clinically suspicious abnormality. [id number] Electronically Signed: Tato Knox MD a t 15:42 EDT Tel [phone], Service support [phone], CC: Fermin Oviedo; Sima Richardson MD Telesales Representative: Signed Family History Unknown Family Member Name Dates Details Father Comments: diabestes, htn Status: Active Mother Comments: ulcerated colitis Status: Active Social History Name Dates Details No Caffeine Use Status: Active No Drug Use Status: Active Non Drinker/No Alcohol Use Status: Active Non Smoker/No Tobacco Use Status: Active Vital Signs Date Test Result Details 17-Imx-113913:17 Temperature 97.5 f Pulse 83 /min Comments: [...] kg/m2 Body Surface Area Calculated 1.96 m2 88-Mpl-12506:31 Comments: her machine 132/82 Pulse 88 /min [...] kg/m2 Body Surface Area Calculated 2 m2 54-Hmp-819044:35 Comments: 142/102 catapress given 0.1mg at 11:40 [...] kg/m2 Body Surface Area Calculated 2 m2 09-Niz-873041:43 Pulse 106 /min Comments: Pattern: Regular Respiration [...] Weight 221.2 lb :51 Comments: 128/78, 89 dnmoy030/72, 92 wkhtdba360/68, 95 standing Temperature 98.7 f Pulse 90 /min Comments: Pattern: Regular Respiration Rate 16 /min Comments: Pattern: Unlabored O2 SAT 99 % Comments: Room air BP Systolic 128 mm[Hg] Comments: Patient Position: Sitting; Cuff Location: Left Arm; Cuff Size: Standard BP Diastolic 80 mm[Hg] Comments: Patient Position: Sitting; Cuff Location: Left Arm; Cuff Size: Standard Weight 216 lb Results Date Description Value Details 78-Uag-892324:35 Renal function Panel (03844) Comments: PATIENT NOT FASTINGPERFORMED BY: JAY JAY [employer]70 [facility] [id number] Albumin 4.1 g/dL (Normal) Range: 3.5-5.5 Phosphorus [...] 6-24 Glucose 100 mg/dL (Abnormal) Range: 65-99 59-Cyl-590293:35 CBC & PLATELETS (AUTO) Comments: PATIENT NOT FASTINGPERFORMED BY: CB AUPEO! RoadDublin [place] [id number] (20666) Platelets 400 {x10E3/uL} (Abnormal) Range: 150-379 RDW 18.3 % (Abnormal) Range: 12.3-15.4 MCHC 32.5 g/dL (Normal) Range: 31.5-35.7 MCH 23.6 pg (Abnormal) Range: 26.6-33.0 MCV 73 fL (Abnormal) Range: 79-97 Hematocrit 34.5 % (Normal) Range: 34.0-46.6 Hemoglobin 11.2 g/dL (Normal) Range: 11.1-15.9 RBC 4.74 {x10E6/uL} (Normal) Range: 3.77-5.28 WBC 9.8 {x10E3/uL} (Normal) Range: 3.4-10.8 44-Lbo-367573:35 EBV Panel (08840) Comments: PATIENT NOT FASTINGPERFORMED BY: [facility]6370 [facility] [id number] Interpretation: SPRCS (Normal) Comments: EBV Interpretation Chart [...] <36.0 Equivocal 36.0 - 43.9 Positive >43.9 64-Are-092793:20 Rapid Strep Test, Office (04176) Comments: neg Rapid Strep Test, Office Negative (Normal) 5-Wlf-364986:55 Microscopic Examination Comments: PATIENT NOT FASTINGPERFORMED BY: [employer] Ldwplg5287 [facility] [id number] Bacteria None seen (Normal) Mucus Threads Present (Normal) Epithelial Cells (non renal) None seen {/hpf} (Normal) Range: 0 - 10 RBC 0-2 {/hpf} (Normal) Range: 0 - 2 WBC 0-5 {/hpf} (Normal) Range: 0 - 5 2-Vkq-160816:55 URINALYSIS, W/ MICRO (63770) Comments: PATIENT NOT FASTINGPERFORMED BY: [employer] Akuwjj2553 [facility] [id number] Microscopic Examination See below: (Normal) Comments: Microscopic was indicated and was performed. Nitrite, Urine Negative (Normal) Urobilinogen,Semi-Qn 0.2 mg/dL (Normal) Range: 0.2-1.0 Bilirubin Negative (Normal) Occult Blood Negative (Normal) Ketones Negative (Normal) Glucose Negative (Normal) Protein Negative (Normal) WBC Esterase 1+ (Abnormal) Appearance Clear (Normal) Urine-Color Yellow (Normal) pH 6.5 (Normal) Range: 5.0-7.5 Specific Belden 1.016 (Normal) Range: 1.005-1.030 8-Dch-967152:55 METABOLIC PANEL, COMPREHENSIVE Comments: PATIENT NOT FASTINGPERFORMED BY: [employer] Rkudxi4849 [facility] [id number] (21363) ALT (SGPT) 14 [iU]/L (Normal) Range: 0-32 [...] 6-24 Glucose 89 mg/dL (Normal) Range: 65-99 2-Wds-433090:55 CBC W/AUTO DIFF WBC (03593) Comments: PATIENT NOT FASTINGPERFORMED BY: [facility] Etodcc8387 [facility] [id number] Immature Grans (Abs) 0.0 {x10E3/uL} (Normal) Range: [...] 3.77-5.28 WBC 8.5 {x10E3/uL} (Normal) Range: 3.4-10.8 98-Dhf-882376:45 Microscopic Examination Comments: PATIENT WAS FASTINGPERFORMED BY: [employer] [facility] [id number] Bacteria Few (Normal) Mucus Threads Present (Normal) Epithelial Cells (non renal) 0-10 {/hpf} (Normal) Range: 0 - 10 RBC None seen {/hpf} (Normal) Range: 0 - 2 WBC 0-5 {/hpf} (Normal) Range: 0 - 5 36-Ifz-890316:45 URINALYSIS, W/ MICRO (26795) Comments: PATIENT WAS FASTINGPERFORMED BY: [employer] [facility] HospitalRanovusNov[facility] [id number] Microscopic Examination See below: (Normal) Comments: Microscopic was indicated and was performed. Nitrite, Urine Negative (Normal) Urobilinogen,Semi-Qn 0.2 mg/dL (Normal) Range: 0.2-1.0 Bilirubin Negative (Normal) Occult Blood Negative (Normal) Ketones Trace (Abnormal) Glucose Negative (Normal) Protein Negative (Normal) WBC Esterase Trace (Abnormal) Appearance Clear (Normal) Urine-Color Yellow (Normal) pH 6.0 (Normal) Range: 5.0-7.5 Specific Belden 1.014 (Normal) Range: 1.005-1.030 30-Uiq-735366:45 MICROALBUMIN: CREATININE RATIO Comments: PATIENT WAS FASTINGPERFORMED BY: [employer] [facility] [id number] (95605) AND (11772) Alb/Creat Ratio 8.4 {mg/g_creat} (Normal) Range: 0.0-30.0 Albumin, Urine 3.9 ug/mL (Normal) Creatinine, Urine 46.4 mg/dL (Normal) 61-Kgg-325504:45 METABOLIC PANEL, COMPREHENSIVE Comments: PATIENT WAS FASTINGPERFORMED BY: JAY JAY [employer]70 [facility] [id number] (87059) ALT (SGPT) 18 [iU]/L (Normal) Range: 0-32 [...] Glucose, Serum 88 mg/dL (Normal) Range: 65-99 07-Hyq-964984:45 LIPID PANEL (42438) Comments: PATIENT WAS FASTINGPERFORMED BY: [employer]AY [employer]6370 [facility] [id number] LDL/HDL Ratio 2.3 {ratio_units} (Normal) Range: 0.0-3.2 Comments: LDL/HDL Ratio Men Women 1/2 Avg.Risk 1.0 1.5 Av g.Risk 3.6 3.2 2X Avg.Risk 6.2 5.0 3X Avg.Risk 8.0 6.1 LDL Cholesterol Calc 146 mg/dL (Abnormal) Range: 0-99 VLDL Cholesterol Darwin 17 mg/dL (Normal) Range: 5-40 HDL Cholesterol 63 mg/dL (Normal) Triglycerides 83 mg/dL (Normal) Range: 0-149 Cholesterol, Total 226 mg/dL (Abnormal) Range: 100-199 50-Ggj-722152:45 CBC W/AUTO DIFF WBC (67562) Comments: PATIENT WAS FASTINGPERFORMED BY: LabCoAstra Health CenterIzthhb9923 [facility] [id number] Immature Grans (Abs) 0.0 {x10E3/uL} (Normal) Range: [...] 3.77-5.28 WBC 8.5 {x10E3/uL} (Normal) Range: 3.4-10.8 76-Swg-082146:26 VIRAL CULTURE (97844) Comments: throat; PATIENT NOT FASTINGPERFORMED BY: [place] 779767 [facility] [id number] Information: THROAT SRC: [id number] Viral Culture, General No virus isolated. (Normal) 63-Ios-561221:26 Throat Culture (87928) Comments: PATIENT NOT FASTINGPERFORMED BY: [facility]6370 [facility] [id number] Information: SRC: Result 1 RRF (Normal) Comments: Routine respiratory jose Upper Respiratory Culture Final report (Normal) 31-Gjb-844894:44 Rapid Strep Test, Office (92830) Rapid Strep Test, Office Negative (Normal) 4-Hpw-681052:24 Rapid Flu (15427 x 2) Influenza A Ag Negative (Normal) :05 Celiac Disease Comphrehensive Comments: PATIENT NOT FASTINGPERFORMED BY: [facility]. [facility]Prom[facility]6370 [facility] [id number] Information: [id number],J26965 Profile (38354) Immunoglobulin A, Qn, Serum 200 mg/dL (Normal) [...] Positive >30 :05 CBC with auto diff (41233) Comments: PATIENT NOT FASTINGPERFORMED BY: LabCoHeather Ville 5875070 [facility] [id number] Hematology Comments: Note: (Normal) Comments: Verified by [...] 8.3 {x10E3/uL} (Normal) Range: 3.4-10.8 :54 Amylase (23167) Comments: PATIENT NOT FASTINGPERFORMED BY: LabCoAstra Health CenterLsuqkf7212 [facility] [id number] BY: [address] [id number] Amylase, Serum 47 U/L (Normal) Range: 31-124 66-Bql-402469:54 Lipase (01921) Comments: PATIENT NOT FASTINGPERFORMED BY: [place] 7167870 [facility] [id number] BY: [address] [id number] Lipase, Serum 34 U/L (Normal) Range: 0-59 58-Gvs-533715:54 HELICOBACTER PYLORI Comments: PATIENT NOT FASTINGPERFORMED BY: [address] [id number] BY: [address] [id number] ANTIBODY PROFILE IgG, IgM, IgA (76221) H. pylori, IgG Abs <0.9 U/mL (Normal) Range: 0.0-0.8 Comments: Negative <0.9 Indeterminate 0.9 - 1.0 Positive >1.0 :54 Sed Rate Erythrocyte Comments: PATIENT NOT FASTINGPERFORMED BY: [place] 7167870 [facility] [id number] BY: [address] [id number] (27579) Sedimentation Rate-Westergren 53 mm/h (Abnormal) Range: 0-40 95-Ljp-920903:54 Metabolic Panel, Comments: PATIENT NOT FASTINGPERFORMED BY: [address] [id number] BY: [address] [id number] Comprehensive (87206) ALT (SGPT) 14 [iU]/L (Normal) Range: 0-32 [...] Glucose, Serum 91 mg/dL (Normal) Range: 65-99 76-Gsm-991510:54 Soluble Transferrin Comments: PATIENT NOT FASTINGPERFORMED BY: [employer]70 [facility] [id number] BY: Son[employer] [id number] Receptor (20067) Soluble Transferrin Receptor 44.2 nmol/L (Abnormal) Range: 12.2-27.3 58-Wha-043134:54 SPEP (72221) Comments: PATIENT NOT FASTINGPERFORMED BY: [employer]3184 [facility] [id number] BY: Sonatype[address] [id number] Please note: SPRCS (Normal) Comments: Protein electrophoresis scan will follow via computer, mail, orcourier delivery. A/G Ratio 1.1 (Normal) Range: 0.7-2.0 Globulin, Total 3.6 g/dL (Normal) Range: 2.0-4.5 M-Isrrael Not Observed g/dL (Normal) Gamma Globulin 1.3 g/dL (Normal) Range: 0.5-1.6 Beta Globulin 1.2 g/dL (Normal) Range: 0.6-1.3 Iucet-9-Uxxzspmb 0.9 g/dL (Normal) Range: 0.4-1.2 Txhzy-7-Fwpnftyo 0.2 g/dL (Normal) Range: 0.1-0.4 Albumin 3.8 g/dL (Normal) Range: 3.2-5.6 :54 UPEP (56184) Comments: PATIENT NOT FASTINGPERFORMED BY: Son[employer] [id number] BY: [address] [id number] Please note: SPRCS (Normal) Comments: Protein electrophoresis scan will follow via computer, mail, orcourier delivery. M-Isrrael, % Not Observed % (Normal) Gamma Globulin, U 34.1 % (Normal) Beta Globulin, U 30.6 % (Normal) Wyqkb-8-Ggabutni, U 14.3 % (Normal) Bfpbn-5-Agsvcqgs, U 2.2 % (Normal) Albumin, U 18.8 % (Normal) Protein,Total,Urine 4.2 mg/dL (Normal) Range: 0.0-15.0 :54 CARLOS TEST, DIRECT Comments: PATIENT NOT FASTINGPERFORMED BY: [employer] [id number] BY: [address] [id number] (67980) Carlos', Direct Negative (Normal) 81-Nxx-171892:54 FOLIC ACID SERUM (32161) Comments: PATIENT NOT FASTINGPERFORMED BY: Son[employer] [id number] BY: [address] [id number] Folate (Folic Acid), Serum 13.4 ng/mL (Normal) Comments: A serum folate concentration of less than 3.1 ng/mL isconsidered to represent clinical deficiency. 61-Suw-690772:54 Methymalonic Acid, Serum Comments: PATIENT NOT FASTINGPERFORMED BY: Sonatype20 Johnson Streetin [place] [id number] BY: [address] [id number] (29139) Methylmalonic Acid, Serum 196 nmol/L (Normal) Range: 0-378 57-Abr-001531:54 VITAMIN B-12 Comments: PATIENT NOT FASTINGPERFORMED BY: [place] 7167870 [facility] [id number] BY: [address] [id number] (CYANOCOBALAMIN) (59361) Vitamin B12 1299 pg/mL (Abnormal) Range: 211-946 14-Pcw-996746:54 RETICULOCYTE COUNT MANUL Comments: PATIENT NOT FASTINGPERFORMED BY: [place] 7167870 [facility] [id number] BY: [address] [id number] (00366) Reticulocyte Count 1.0 % (Normal) Range: 0.6-2.6 55-Spw-675243:54 LDH (LD) (LACTATE Comments: PATIENT NOT FASTINGPERFORMED BY: [place] 7167870 [facility] [id number] BY: [address] [id number] DEHYDROGENASE) (61222) LDH 159 [iU]/L (Normal) Range: 119-226 44-Oeo-851468:54 IRON BINDING CAPACITY Comments: PATIENT NOT FASTINGPERFORMED BY: [place] 7167870 [facility] [id number] BY: [address] [id number] (TIBC) (02557) Iron Saturation 4 % (Abnormal) Range: 15-55 Iron, Serum 15 ug/dL (Abnormal) Range: 35-155 UIBC 363 ug/dL (Normal) Range: 150-375 Iron Bind.Cap.(TIBC) 378 ug/dL (Normal) Range: 250-450 11-Lwj-145967:54 FERRITIN (86262) Comments: PATIENT NOT FASTINGPERFORMED BY: LabCoAstra Health CenterJwejfz1694 [facility] [id number] BY: [address] [id number] Ferritin, Serum 5 ng/mL (Abnormal) Range: 15-150 23-Gpf-876332:54 HAPTOGLOBIN (54457) Comments: PATIENT NOT FASTINGPERFORMED BY: [facility] Ygwnao2240 [facility] [id number] BY: Lab[address] [id number] Haptoglobin 282 mg/dL (Abnormal) Range: 34-200 91-Ues-063298:54 CBC, PLATELETS & AUT DIFF Comments: PATIENT NOT FASTINGPERFORMED BY: [facility] Yosedf0554 [facility] [id number] BY: Mr. Youth[address] [id number] Information: 129518,H25223 (69971) Immature Grans (Abs) 0.0 {x10E3/uL} (Normal) Range: [...] Non-smoker Planned Observations IRON BINDING CAPACITY (TIBC) (91766)Indication: Fatigue On: :34 Request LEAD (27101)Indication: Fatigue On: 64-Asd-348633:34 Request FERRITIN (57911)Indication: Fatigue On: 66-Mpp-826474:34 Request IRON (06959)Indication: Fatigue On: :34 Request THROAT CULTURE (40124)Indication: Sore throat On: 13-Hxo-133474:20 Request METABOLIC PANEL, COMPREHENSIVE (17520)Indication: HTN (hypertension), benign On: :56 Request LIPOPROTEIN, BLD, BY NMR (37775)Indication: HTN (hypertension), benign On: :56 Request CBC W/AUTO DIFF WBC (73350)Indication: HTN (hypertension), benign On: :56 Request OVA & PARASITE DIR SMEAR (38702)Indication: DIARRHEA (Renamed from D (diarrhea)) On: :41 Request OCCULT BLOOD FECES SCREEN (84361)Indication: DIARRHEA (Renamed from D (diarrhea)) On: :41 Request LEUKOCYTE COUNT, FECAL (08300)Indication: DIARRHEA (Renamed from D (diarrhea)) On: :41 Request C-DIFFICILE, STOOL (38031)Indication: DIARRHEA (Renamed from D (diarrhea)) On: 74-Bqq-950161:41 Request SHANNAN CULTURE-STOOL (79268)Indication: DIARRHEA (Renamed from D (diarrhea)) On: :41 Request FECAL OCCULT- Tubes sent home (03212)Indication: ANEMIA, UNSPECIFIED On: 80-Sex-011411:40 Request IRON (55526)Indication: ANEMIA, UNSPECIFIED On: 95-Vnr-942925:40 Request Planned Encounters Medical; 4 Month FU - On: 14-Aug-2018 9:30 [facility] Billie Laurent DO, DO, Kathleen Planned Procedures MAMMOGRAM BREAST BILATERAL On: 11-May-2018 Intent SCREENING DIGITAL (34063)By: Billie Laurent DO, DO, Kathleen ELECTROCARDIOGRAM, COMPLETE (ECG) On: 20-Apr-2018 Intent (67378)By: Aimee Rivera Comments: nsr no avute chg ELECTROCARDIOGRAM, COMPLETE (ECG) On: 30-Sep-2017 Intent (79094)By: Billie Laurent DO Comments: nsr poor R wave progression no acute chg Billie Laurent DO Radiology - Chest- PA and LatBy: On: 24-Sep-2017 Intent Billie Laurent DO, DO, Comments: follow on abnormality 08/31 Billie Solu- Medrol Injection, 125mg On: 27-Aug-2017 Intent (J2930)By: Billie Laurent DO Comments: [id number] vialMLONG Billie Laurent DO Aerosol Treatment (00462)By: On: 27-Aug-2017 Intent Billie Laurent DO, DO, Comments: less velcro noise more a/e less reactive cough Billie Solu -Medrol Injection, 125 mg On: 25-Aug-2017 Intent (J2930)By: Billie Laurent DO Comments: solumedrol 125mg injectionlot: [id number]: 12/2019R GMpt tolerated wellAD AUTOMOTIVE TIRE TESTING SUPERVISOR Billie Laurent DO Rocephin Injection, 2 Gram On: 25-Aug-2017 Intent (J0696)By: Billie Laurent DO Comments: rochephin 2gm injection diluted in 4.2cc of 2% lidocainelot: [id number]: 05/2019L and R GM, 1gm in bothpt tolerated wellAD AUTOMOTIVE TIRE TESTING SUPERVISOR Billie Laurent DO Aerosol Treatment (99175)By: On: 25-Aug-2017 Intent Billie Laurent DO, DO, Comments: more a;e-- left side clearly rhonhci and exp wheeeze other side that was quiet now more a/e -- is wheezy in RLL too Billie Radiology - Chest- PA and LatBy: On: 25-Aug-2017 Intent Billie Laurent DO DO, Billie Aerosol Treatment (31352)By: Rose On: 19-Aug-2017 Intent NEVILLE Amy Spirometry (65691)By: Rose LOZADA, On: 19-Aug-2017 Intent Leslee Villafuerte Comments: mild restriction ELECTROCARDIOGRAM, COMPLETE (ECG) On: 28-Sep-2015 Intent (98103)By: Fermin Oviedo MD Radiology - Foot - LeftBy: Ivelisse On: 28-Sep-2015 Intent Fermin PALAFOX Planned Medications INJECTION, CEFTRIAXONE SODIUM, PER 250 MG Ordered: 25-Aug-2017 Pending Billie Laurent DOon DO, Billie INJECTION, METHYLPREDNISOLONE SODIUM SUCCINATE, UP TO 125 MG Ordered: 25-Aug-2017 Pending Mehran DO, Billie Mehran DO, Billie INJECTION, METHYLPREDNISOLONE SODIUM SUCCINATE, UP TO 125 MG Ordered: 27-Aug-2017 Pending Mehran DOBillie Mehran DO, Billie Instructions Name Dates Details [...] for Nausea: Started lsinopril before trip to [place] then BP too low, then dose decreased [...]
--- OUTSIDE RECORDS SUMMARY | 2018-10-05 22:59 | XMS RPT_ITS | Continuity of Care Document ---
:1960 Author Organization [facility] Address [address] [place] [address] [address] [place] [address] Phone Care Team Providers Name Role Phone Billie Laurent DO Unavailable Dr. Sandoval Enrique Unavailable Bianca Fonseca Unavailable Dr. Juan Mercer Unavailable Juanis, ANÍBAL Fay Unavailable Unavailable Long Kathy SPANGLER Unavailable Unavailable Aimee Rivera Unavailable Unavailable Unavailable Unavailable Problems Name Dates [...] needles a nd procedures, anxiety with colonoscopy.Works [employer],job changes, 23 yr old daughter has DOWNS and lives with her .Had counselling for PTSD after daughter was born. Status: Active BMI 38.0-38.9,adult (Z68.38, V85.38) Status: Active BMI 40.0-44.9, adult (Z68.41, V85.41) Comments: DIET AND EXERCISE:-health recomendations that are to be followed unless otherwise told unable to do are 10,000 steps a day (can buy a pedometer at [employer]), -5 days of week of 30 mins [...] week.Can join WHY WEIGHT program me with [facility] for nutrition counselling. BMI 40.46.Cost 300 [...] Comments: rx massage therapy gfivne Status: Active Sore throat (J02.9, 462) Status: [...] 30-Sep-2017 End : 30-Oct-2017 Inactive EXCEDRIN MIGRAINE, [id number] (Oral Tablet) 1 prn for migraines (250-250-65 [...] days Quantity: 1 {Inhaler} Refills: 0 Ordered:20-Apr-2018 Nicole Aimee Start : 19-Aug-2017 End : 20-Apr-2018 Inactive [...] and Lateral Result: Comments: See Note; NOTES: [facility] Imaging Services [address] [place] [address] Chest PA and Lateral MR#: [id number] Acct: [id number] Name: ANABELLA MICHEL Rep #: [id number] : 1960 F 57 From: Madi Sheikh DO PCP: Billie Laurent DO Status: REG CLI Study: Chest PA and Lateral Date of Exam: 09/24/17 Exam# [id number] Ordering Dr: Billie Laurent DO STUDY: X-RAY [...] Service support , CC: Billie Laurent DO Mine Inspector: Signed 25-Aug-2017 Chest PA and Lateral Result: Comments: See Note; NOTES: [facility] Imaging Services [address] [place] [address] Chest PA and Lateral MR#: [id number] Acct: [id number] Name: ANABELLA MICHEL Rep #: [id number] : 1960 F 57 From: Tato Knox MD PCP: Billie Laurent DO Status: REG CLI Study: Chest PA and Lateral Date of Exam: 08/25/17 Exam# [id number] Ordering Dr: Billie Laurent DO STUDY: X- [...] Tato Knox MD at 14:06 EST Tel [phone], Service support , CC: Billie Laurent DO Mine Inspector: Signed 16-Feb-2016 Bilat Scrn Digital AND CAD Result: Comments: See Note; NOTES: [facility] Imaging Services [address] [place] [address] Verdana 4d Bilat Scrn Digital AND CAD MR#: [id number] Acct: [id number] Name: ANABELLA MICHEL Rep #: [id number] : 1960 F 55 From: Tato Knox MD PCP: Fermin Oviedo Status: REG CLI Study: Bilat Scrn Digital AND CAD Date of Exam: 02/16/16 Exam# [id number] Ordering Dr: Bertha Richardson MD MAMMOGRAPHY - [...] delay biopsy of a clinically suspicious abnormality. [id number] Electronically Signed: Tato Knox MD a t 15:42 EDT Tel [phone], Service support [phone], CC: Fermin Oviedo; Sima Richardson MD Mine Inspector: Signed Family History Unknown Family Member Name [...] kg/m2 Body Surface Area Calculated 2 m2 65-Wrv-325588:35 Comments: 142/102 catapress given 0.1mg at 11:40 [...] kg/m2 Body Surface Area Calculated 1.99 m2 78-Wvw-350907:10 Pulse 74 /min Comments: Pattern: Regular Respiration [...] Weight 221.2 lb :51 Comments: 128/78, 89 ewjut795/72, 92 pueajqb202/68, 95 standing Temperature 98.7 f Pulse 90 [...] Microscopic Examination Comments: PATIENT NOT FASTINGPERFORMED BY: JAY JAY LabComeseret Lgloyt5838 [facility] [id number] Bacteria None seen (Normal) Mucus Threads Present (Normal) Epithelial Cells (non renal) None seen {/hpf} (Normal) Range: 0 - 10 RBC 0-2 {/hpf} (Normal) Range: 0 - 2 WBC 0-5 {/hpf} (Normal) Range: 0 - 5 :55 URINALYSIS, W/ MICRO (35961) Comments: PATIENT NOT FASTINGPERFORMED BY: Oony Hzylzq3896 [facility] [id number] Microscopic Examination See below: (Normal) Comments: Microscopic was indicated and was performed. Nitrite, Urine Negative (Normal) Urobilinogen,Semi-Qn 0.2 mg/dL (Normal) Range: 0.2-1.0 Bilirubin Negative (Normal) Occult Blood Negative (Normal) Ketones Negative (Normal) Glucose Negative (Normal) Protein Negative (Normal) WBC Esterase 1+ (Abnormal) Appearance Clear (Normal) Urine-Color Yellow (Normal) pH 6.5 (Normal) Range: 5.0-7.5 Specific Royal 1.016 (Normal) Range: 1.005-1.030 9-Bqn-465199:55 METABOLIC PANEL, COMPREHENSIVE Comments: PATIENT NOT FASTINGPERFORMED BY: Oony Tyeppr8541 [facility] [id number] (36221) ALT (SGPT) 14 [iU]/L (Normal) Range: 0-32 [...] 6-24 Glucose 89 mg/dL (Normal) Range: 65-99 5-Bop-216709:55 CBC W/AUTO DIFF WBC (49723) Comments: PATIENT NOT FASTINGPERFORMED BY: LabCoThe Valley HospitalBiyije8741 [facility] [id number] Immature Grans (Abs) 0.0 {x10E3/uL} (Normal) Range: [...] 3.77-5.28 WBC 8.5 {x10E3/uL} (Normal) Range: 3.4-10.8 56-Uvj-677433:45 Microscopic Examination Comments: PATIENT WAS FASTINGPERFORMED BY: [facility]6370 [facility] [id number] Bacteria Few (Normal) Mucus Threads Present (Normal) Epithelial Cells (non renal) 0-10 {/hpf} (Normal) Range: 0 - 10 RBC None seen {/hpf} (Normal) Range: 0 - 2 WBC 0-5 {/hpf} (Normal) Range: 0 - 5 47-Twz-706461:45 URINALYSIS, W/ MICRO (66831) Comments: PATIENT WAS FASTINGPERFORMED BY: SegundoHogarHenry [facility] Hospital6370 [facility] [id number] Microscopic Examination See below: (Normal) Comments: Microscopic was indicated and was performed. Nitrite, Urine Negative (Normal) Urobilinogen,Semi-Qn 0.2 mg/dL (Normal) Range: 0.2-1.0 Bilirubin Negative (Normal) Occult Blood Negative (Normal) Ketones Trace (Abnormal) Glucose Negative (Normal) Protein Negative (Normal) WBC Esterase Trace (Abnormal) Appearance Clear (Normal) Urine-Color Yellow (Normal) pH 6.0 (Normal) Range: 5.0-7.5 Specific Royal 1.014 (Normal) Range: 1.005-1.030 61-Mgs-074525:45 MICROALBUMIN: CREATININE RATIO Comments: PATIENT WAS FASTINGPERFORMED BY: SegundoHogarHenry Ford [facility] Bloom[facility] Hospital6370 [facility] [id number] (83920) AND (81615) Alb/Creat Ratio 8.4 {mg/g_creat} (Normal) Range: 0.0-30.0 Albumin, Urine 3.9 ug/mL (Normal) Creatinine, Urine 46.4 mg/dL (Normal) 11-Bcs-059343:45 METABOLIC PANEL, COMPREHENSIVE Comments: PATIENT WAS FASTINGPERFORMED BY: [facility]6370 [facility] [id number] (54368) ALT (SGPT) 18 [iU]/L (Normal) Range: 0-32 [...] Glucose, Serum 88 mg/dL (Normal) Range: 65-99 21-Ndb-860140:45 LIPID PANEL (14717) Comments: PATIENT WAS FASTINGPERFORMED BY: [facility]6370 [facility] [id number] LDL/HDL Ratio 2.3 {ratio_units} (Normal) Range: 0.0-3.2 Comments: LDL/HDL Ratio Men Women 1/2 Avg.Risk 1.0 1.5 Av g.Risk 3.6 3.2 2X Avg.Risk 6.2 5.0 3X Avg.Risk 8.0 6.1 LDL Cholesterol Calc 146 mg/dL (Abnormal) Range: 0-99 VLDL Cholesterol Darwin 17 mg/dL (Normal) Range: 5-40 HDL Cholesterol 63 mg/dL (Normal) Triglycerides 83 mg/dL (Normal) Range: 0-149 Cholesterol, Total 226 mg/dL (Abnormal) Range: 100-199 95-Qxq-541236:45 CBC W/AUTO DIFF WBC (16208) Comments: PATIENT WAS FASTINGPERFORMED BY: [facility] Eqrbkt1255 [facility] [id number] Immature Grans (Abs) 0.0 {x10E3/uL} (Normal) Range: [...] 3.77-5.28 WBC 8.5 {x10E3/uL} (Normal) Range: 3.4-10.8 72-Gha-876650:26 VIRAL CULTURE (81556) Comments: throat; PATIENT NOT FASTINGPERFORMED BY: [facility] Ohflfczkko6614 [facility] [id number] Information: THROAT SRC: [id number] Viral Culture, General No virus isolated. (Normal) 31-Nur-914359:26 Throat Culture (23090) Comments: PATIENT NOT FASTINGPERFORMED BY: [facility] Hbqoou2591 [facility] [id number] Information: SRC:TH Result 1 RRF (Normal) Comments: Routine respiratory jose Upper Respiratory Culture Final report (Normal) 20-Jzs-187125:44 Rapid Strep Test, Office (96208) Rapid Strep Test, Office Negative (Normal) 1-Okt-715866:24 Rapid Flu (88600 x 2) Influenza A Ag Negative (Normal) :05 Celiac Disease Comphrehensive Comments: PATIENT NOT FASTINGPERFORMED BY: [employer] Hxkbcw7397 [facility] [id number] Information: [id number] Profile (09258) Immunoglobulin A, Qn, Serum 200 mg/dL (Normal) [...] Positive >30 :05 CBC with auto diff (08629) Comments: PATIENT NOT FASTINGPERFORMED BY: [facility] Noekty5611 [facility] [id number] Hematology Comments: Note: (Normal) Comments: Verified by [...] 8.3 {x10E3/uL} (Normal) Range: 3.4-10.8 :54 Amylase (00853) Comments: PATIENT NOT FASTINGPERFORMED BY: [employer] [id number] BY: [address] [id number] Amylase, Serum 47 U/L (Normal) Range: 31-124 :54 Lipase (53208) Comments: PATIENT NOT FASTINGPERFORMED BY: [employer] [id number] BY: [address] [id number] Lipase, Serum 34 U/L (Normal) Range: 0-59 93-Dnh-673832:54 HELICOBACTER PYLORI Comments: PATIENT NOT FASTINGPERFORMED BY: Oony Ffkclz3704 [facility] [id number] BY: [address] [id number] ANTIBODY PROFILE IgG, IgM, IgA (46906) H. pylori, IgG Abs <0.9 U/mL (Normal) Range: 0.0-0.8 Comments: Negative <0.9 Indeterminate 0.9 - 1.0 Positive >1.0 74-Cxk-106070:54 Sed Rate Erythrocyte Comments: PATIENT NOT FASTINGPERFORMED BY: Oony Lizboh38[address] [id number] BY: SegundoHogar[address] [id number] (08382) Sedimentation Rate-Westergren 53 mm/h (Abnormal) Range: 0-40 90-Yqk-861064:54 Metabolic Panel, Comments: PATIENT NOT FASTINGPERFORMED BY: [employer] [id number] BY: SegundoHogar[address] [id number] Comprehensive (69233) ALT (SGPT) 14 [iU]/L (Normal) Range: 0-32 [...] Glucose, Serum 91 mg/dL (Normal) Range: 65-99 :54 Soluble Transferrin Comments: PATIENT NOT FASTINGPERFORMED BY: [employer]70 [facility] [id number] BY: [employer] [id number] Receptor (50768) Soluble Transferrin Receptor 44.2 nmol/L (Abnormal) Range: 12.2-27.3 :54 SPEP (15627) Comments: PATIENT NOT FASTINGPERFORMED BY: [employer]70 [facility] [id number] BY: [employer] [id number] Please note: SPRCS (Normal) Comments: Protein electrophoresis scan will follow via computer, mail, orcourier delivery. A/G Ratio 1.1 (Normal) Range: 0.7-2.0 Globulin, Total 3.6 g/dL (Normal) Range: 2.0-4.5 M-Isrrael Not Observed g/dL (Normal) Gamma Globulin 1.3 g/dL (Normal) Range: 0.5-1.6 Beta Globulin 1.2 g/dL (Normal) Range: 0.6-1.3 Fkvhn-2-Dwrtglqg 0.9 g/dL (Normal) Range: 0.4-1.2 Xtdrz-0-Rwxiwefj 0.2 g/dL (Normal) Range: 0.1-0.4 Albumin 3.8 g/dL (Normal) Range: 3.2-5.6 :54 UPEP (92643) Comments: PATIENT NOT FASTINGPERFORMED BY: [employer] [facility] GroupDon[place] 4362070 [facility] [id number] BY: [address] [id number] Please note: SPRCS (Normal) Comments: Protein electrophoresis scan will follow via computer, mail, orcourier delivery. M-Isrrael, % Not Observed % (Normal) Gamma Globulin, U 34.1 % (Normal) Beta Globulin, U 30.6 % (Normal) Tfwrs-8-Szexrltq, U 14.3 % (Normal) Dyxma-4-Fcmxdtzs, U 2.2 % (Normal) Albumin, U 18.8 % (Normal) Protein,Total,Urine 4.2 mg/dL (Normal) Range: 0.0-15.0 12-Lxo-725572:54 CARLOS TEST, DIRECT Comments: PATIENT NOT FASTINGPERFORMED BY: [employer] [facility] GroupDon[place] 4362070 [facility] [id number] BY: [place] [id number] (80243) Carlos', Direct Negative (Normal) 64-Nva-444366:54 FOLIC ACID SERUM (03328) Comments: PATIENT NOT FASTINGPERFORMED BY: [employer] [id number] BY: [address] [id number] Folate (Folic Acid), Serum 13.4 ng/mL (Normal) Comments: A serum folate concentration of less than 3.1 ng/mL isconsidered to represent clinical deficiency. 77-Nrq-841542:54 Methymalonic Acid, Serum Comments: PATIENT NOT FASTINGPERFORMED BY: [employer] [id number] BY: [address] [id number] (33056) Methylmalonic Acid, Serum 196 nmol/L (Normal) Range: 0-378 72-Vfu-096864:54 VITAMIN B-12 Comments: PATIENT NOT FASTINGPERFORMED BY: [facility] Xuhgwo4123 [facility] [id number] BY: [address] [id number] (CYANOCOBALAMIN) (92328) Vitamin B12 1299 pg/mL (Abnormal) Range: 211-946 34-Pum-243474:54 RETICULOCYTE COUNT MANUL Comments: PATIENT NOT FASTINGPERFORMED BY: LabCoDonna [place] 4362070 [facility] [id number] BY: [address] [id number] (79624) Reticulocyte Count 1.0 % (Normal) Range: 0.6-2.6 56-Msj-037853:54 LDH (LD) (LACTATE Comments: PATIENT NOT FASTINGPERFORMED BY: LabMedminderDonna [place]ille 4362070 [facility] [id number] BY: [address] [id number] DEHYDROGENASE) (30656) LDH 159 [iU]/L (Normal) Range: 119-226 59-Wnv-020443:54 IRON BINDING CAPACITY Comments: PATIENT NOT FASTINGPERFORMED BY: LabTeresa Ville 8661270 [facility] [id number] BY: [address] [id number] (TIBC) (00437) Iron Saturation 4 % (Abnormal) Range: 15-55 Iron, Serum 15 ug/dL (Abnormal) Range: 35-155 UIBC 363 ug/dL (Normal) Range: 150-375 Iron Bind.Cap.(TIBC) 378 ug/dL (Normal) Range: 250-450 04-Bww-184703:54 FERRITIN (09108) Comments: PATIENT NOT FASTINGPERFORMED BY: [facility] Itntzj0127 [facility] [id number] BY: [address] [id number] Ferritin, Serum 5 ng/mL (Abnormal) Range: 15-150 51-Uag-595741:54 HAPTOGLOBIN (77576) Comments: PATIENT NOT FASTINGPERFORMED BY: LabCoThe Valley HospitalJirzri7890 [facility] [id number] BY: Lab[address] [id number] Haptoglobin 282 mg/dL (Abnormal) Range: 34-200 83-Vlk-887676:54 CBC, PLATELETS & AUT DIFF Comments: PATIENT NOT FASTINGPERFORMED BY: LabCoThe Valley HospitalCerwxo1523 [facility] [id number] BY: [facility]Co[address] [id number] Information: [id number],J97095 (85470) Immature Grans (Abs) 0.0 {x10E3/uL} (Normal) Range: [...] Indication: Non-smoker Planned Observations METABOLIC PANEL, COMPREHENSIVE (47104)Indication: HTN (hypertension), benign On: 57-Rne-98583:56 Request LIPOPROTEIN, BLD, BY NMR (25917)Indication: HTN (hypertension), benign On: 71-Uhs-87116:56 Request CBC W/AUTO DIFF WBC (81178)Indication: HTN (hypertension), benign On: 70-Ous-80373:56 Request OVA & PARASITE DIR SMEAR (58206)Indication: DIARRHEA (Renamed from D (diarrhea)) On: :41 Request OCCULT BLOOD FECES SCREEN (83967)Indication: DIARRHEA (Renamed from D (diarrhea)) On: :41 Request LEUKOCYTE COUNT, FECAL (08005)Indication: DIARRHEA (Renamed from D (diarrhea)) On: :41 Request C-DIFFICILE, STOOL (83205)Indication: DIARRHEA (Renamed from D (diarrhea)) On: :41 Request SHANNAN CULTURE-STOOL (28383)Indication: DIARRHEA (Renamed from D (diarrhea)) On: :41 Request FECAL OCCULT- Tubes sent home (39629)Indication: ANEMIA, UNSPECIFIED On: :40 Request IRON (61776)Indication: ANEMIA, UNSPECIFIED On: :40 Request Planned Encounters Medical; 4 Month FU - On: 14-Aug-2018 9:30 [facility] Billie Laurent DO, DO, Kathleen Planned Procedures ELECTROCARDIOGRAM, COMPLETE (ECG) On: 20-Apr-2018 Intent (87824)By: Aimee Rivera Comments: nsr no avute chg ELECTROCARDIOGRAM, COMPLETE (ECG) On: 30-Sep-2017 Intent (65907)By: Billie Laurent DO Comments: nsr poor R wave progression no acute chg Billie HUSSEIN Radiology - Chest- PA and LatBy: On: 24-Sep-2017 Intent Billie Laurent DO, DO, Comments: follow on abnormality 08/31 Billie Solu- Medrol Injection, 125mg On: 27-Aug-2017 Intent (J2930)By: Billie Laurent DO Comments: [id number] vialMLONG Billie HUSSEIN Aerosol Treatment (42362)By: Mehran On: 27-Aug-2017 Billie Adkins DO, DO, Kathleen Comments: less velcro noise more a/e less reactive cough Solu -Medrol Injection, 125 mg On: 25-Aug-2017 Intent (J2930)By: Billie Laurent DO Comments: solumedrol 125mg injectionlot: [id number]: 12/2019R 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 DO, Billie Rocephin Injection, 2 Gram (J0696)By: On: 25-Aug-2017 Intent Billie Laurent DO, DO, Comments: rochephin 2gm injection diluted in 4.2cc of 2% lidocainelot: [id number]: 05/2019L and R GM, 1gm in bothpt 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 Billie Aerosol Treatment (84774)By: Mehran On: 25-Aug-2017 Intent Billie HUSSEIN DO, Kathleen Comments: more a;e-- left side clearly rhonhci and exp wheeeze other side that was quiet now more a/e -- is wheezy in RLL too Radiology - Chest- PA and LatBy: On: 25-Aug-2017 Intent Billie Laurent DO, DO, Kathleen Aerosol Treatment (16678)By: Rose On: 19-Aug-2017 Intent Leslee LOZADA Spirometry (55072)By: Leslee Rose CNP On: 19-Aug-2017 Intent Christo Comments: mild restriction ELECTROCARDIOGRAM, COMPLETE (ECG) On: 28-Sep-2015 Intent (56131)By: Fermin Oviedo MD Radiology - Foot - LeftBy: Ivelisse PALAFOX, On: 28-Sep-2015 Intent Fermin Planned Medications INJECTION, CEFTRIAXONE SODIUM, PER 250 MG Ordered: 25-Aug-2017 Pending Billie Laurent DO DO, Billie INJECTION, METHYLPREDNISOLONE SODIUM SUCCINATE, UP TO 125 MG Ordered: 25-Aug-2017 Pending Billie Laurent DO DO, Billie INJECTION, METHYLPREDNISOLONE SODIUM SUCCINATE, UP TO 125 MG Ordered: 27-Aug-2017 Pending Billie Laurent DO DO, Billie Instructions Name Dates Details HTN (hypertension), benign [...] Instructions Indication: Non-smoker Encounters Office Visit On: 11-May-2018 9:25 Encounter Reason: [...] a summary of care was not provided (scoobytent is aware we need to sign the [...]
--- OUTSIDE RECORDS SUMMARY | 2018-10-05 22:59 | XMS RPT_ITS | Continuity of Care Document ---
:1960 Author Organization [facility] Address [address] [place] [address] [address] [place] [address] Phone Care Team Providers Name Role Phone [...] needles a nd procedures, anxiety with colonoscopy.Works [employer],job changes, 23 yr old daughter has DOWNS and lives with her .Had counselling for PTSD after daughter was born. Status: Active BMI 38.0-38.9,adult (Z68.38, V85.38) Status: Active BMI 40.0-44.9, adult (Z68.41, V85.41) Comments: DIET AND EXERCISE:-health recomendations that are to be followed unless otherwise told unable to do are 10,000 steps a day (can buy a pedometer at [employer]), -5 days of week of 30 mins [...] week.Can join WHY WEIGHT program me with [facility] for nutrition counselling. BMI 40.46.Cost 300 [...] Quantity: 30 {Tablet} Refills: 0 Ordered:12-Oct-2015 Fermin Ovieod MD Start : 12-Oct-2015 End : 11-Nov-2015 [...] 30-Sep-2017 End : 30-Oct-2017 Inactive EXCEDRIN MIGRAINE, [id number] (Oral Tablet) 1 prn for migraines (250-250-65 [...] Result: Comments: See Note; NOTES: [facility] Imaging Services [address] [place] [address] Chest PA and Lateral MR#: [id number] Acct: [id number] Name: ANABELLA MICHEL Rep #: [id number] : 1960 F 57 From: Madi Sheikh DO PCP: Billie Laurent DO Status: REG CLI Study: Chest PA and Lateral Date of Exam: 09/24/17 Exam# [id number] Ordering Dr: Billie Laurent DO STUDY: X-RAY [...] Service support , CC: Billie Laurent DO Emergency Department Coordinator: Signed 25-Aug-2017 Chest PA and Lateral Result: Comments: See Note; NOTES: [facility] Imaging Services [address] [place] [address] Chest PA and Lateral MR#: [id number] Acct: [id number] Name: ANABELLA MICHEL Rep #: [id number] : 1960 F 57 From: Tato Knox MD PCP: Billie Laurent DO Status: REG CLI Study: Chest PA and Lateral Date of Exam: 08/25/17 Exam# [id number] Ordering Dr: Billie Laurent DO STUDY: X- [...] Tato Knox MD at 14:06 EST Tel [phone], Service support , CC: Billie Laurent DO Emergency Department Coordinator: Signed 16-Feb-2016 Bilat Scrn Digital AND CAD Result: Comments: See Note; NOTES: [facility] Imaging Services [address] [place] [address] Verdana 4d Bilat Scrn Digital AND CAD MR#: [id number] Acct: [id number] Name: ANABELLA MICHEL Rep #: [id number] : 1960 F 55 From: Tato Knox MD PCP: Fermin Oviedo Status: REG CLI Study: Bilat Scrn Digital AND CAD Date of Exam: 02/16/16 Exam# [id number] Ordering Dr: Bertha Richardson MD MAMMOGRAPHY - [...] delay biopsy of a clinically suspicious abnormality. [id number] Electronically Signed: Tato Knox MD a t 15:42 EDT Tel [phone], Service support [phone], CC: Fermin Oviedo; Sima Richardson MD Emergency Department Coordinator: Signed Family History Unknown Family Member Name [...] kg/m2 Body Surface Area Calculated 2 m2 72-Vya-136682:35 Comments: 142/102 catapress given 0.1mg at 11:40 [...] kg/m2 Body Surface Area Calculated 1.99 m2 56-Nge-800833:10 Pulse 74 /min Comments: Pattern: Regular Respiration [...] lb :51 Comments: 128/78, 89 /72, 92 dicvzfq204/68, 95 standing Temperature 98.7 f Pulse 90 [...] PATIENT NOT FASTINGPERFORMED BY: JAY JAY LabComeseret Autmmz8733 [facility] [id number] Bacteria None seen (Normal) Mucus Threads Present (Normal) Epithelial Cells (non renal) None seen {/hpf} (Normal) Range: 0 - 10 RBC 0-2 {/hpf} (Normal) Range: 0 - 2 WBC 0-5 {/hpf} (Normal) Range: 0 - 5 :55 URINALYSIS, W/ MICRO (52866) Comments: PATIENT NOT FASTINGPERFORMED BY: IMASTE Bnyovc0077 [facility] [id number] Microscopic Examination See below: (Normal) Comments: Microscopic was indicated and was performed. Nitrite, Urine Negative (Normal) Urobilinogen,Semi-Qn 0.2 mg/dL (Normal) Range: 0.2-1.0 Bilirubin Negative (Normal) Occult Blood Negative (Normal) Ketones Negative (Normal) Glucose Negative (Normal) Protein Negative (Normal) WBC Esterase 1+ (Abnormal) Appearance Clear (Normal) Urine-Color Yellow (Normal) pH 6.5 (Normal) Range: 5.0-7.5 Specific [place] 1.016 (Normal) Range: 1.005-1.030 3-Rtl-957822:55 METABOLIC PANEL, COMPREHENSIVE Comments: PATIENT NOT FASTINGPERFORMED BY: IMASTE Bwvadn7292 [facility] [id number] (54803) ALT (SGPT) 14 [iU]/L (Normal) Range: 0-32 [...] 6-24 Glucose 89 mg/dL (Normal) Range: 65-99 1-Czm-510091:55 CBC W/AUTO DIFF WBC (12654) Comments: PATIENT NOT FASTINGPERFORMED BY: LabCoRobert Wood Johnson [facility] Hospital at RahwayWmpctm9779 [facility] [id number] Immature Grans (Abs) 0.0 {x10E3/uL} (Normal) Range: [...] 3.77-5.28 WBC 8.5 {x10E3/uL} (Normal) Range: 3.4-10.8 33-Pac-149580:45 Microscopic Examination Comments: PATIENT WAS FASTINGPERFORMED BY: [facility]6370 [facility] [id number] Bacteria Few (Normal) Mucus Threads Present (Normal) Epithelial Cells (non renal) 0-10 {/hpf} (Normal) Range: 0 - 10 RBC None seen {/hpf} (Normal) Range: 0 - 2 WBC 0-5 {/hpf} (Normal) Range: 0 - 5 75-Uzk-626603:45 URINALYSIS, W/ MICRO (94454) Comments: PATIENT WAS FASTINGPERFORMED BY: [facility]blesKalkaska [facility] Center6370 [facility] [id number] Microscopic Examination See below: (Normal) Comments: Microscopic was indicated and was performed. Nitrite, Urine Negative (Normal) Urobilinogen,Semi-Qn 0.2 mg/dL (Normal) Range: 0.2-1.0 Bilirubin Negative (Normal) Occult Blood Negative (Normal) Ketones Trace (Abnormal) Glucose Negative (Normal) Protein Negative (Normal) WBC Esterase Trace (Abnormal) Appearance Clear (Normal) Urine-Color Yellow (Normal) pH 6.0 (Normal) Range: 5.0-7.5 Specific [place] 1.014 (Normal) Range: 1.005-1.030 35-Cyv-769764:45 MICROALBUMIN: CREATININE RATIO Comments: PATIENT WAS FASTINGPERFORMED BY: [facility] Center6370 [facility] [id number] (33942) AND (76405) Alb/Creat Ratio 8.4 {mg/g_creat} (Normal) Range: 0.0-30.0 Albumin, Urine 3.9 ug/mL (Normal) Creatinine, Urine 46.4 mg/dL (Normal) 84-Afi-054998:45 METABOLIC PANEL, COMPREHENSIVE Comments: PATIENT WAS FASTINGPERFORMED BY: [facility]6370 [facility] [id number] (00687) ALT (SGPT) 18 [iU]/L (Normal) Range: 0-32 [...] Glucose, Serum 88 mg/dL (Normal) Range: 65-99 40-Kvd-646179:45 LIPID PANEL (22551) Comments: PATIENT WAS FASTINGPERFORMED BY: [facility]6370 [facility] [id number] LDL/HDL Ratio 2.3 {ratio_units} (Normal) Range: 0.0-3.2 Comments: LDL/HDL Ratio Men Women 1/2 Avg.Risk 1.0 1.5 Av g.Risk 3.6 3.2 2X Avg.Risk 6.2 5.0 3X Avg.Risk 8.0 6.1 LDL Cholesterol Calc 146 mg/dL (Abnormal) Range: 0-99 VLDL Cholesterol [place] 17 mg/dL (Normal) Range: 5-40 HDL Cholesterol 63 mg/dL (Normal) Triglycerides 83 mg/dL (Normal) Range: 0-149 Cholesterol, Total 226 mg/dL (Abnormal) Range: 100-199 37-Nnh-293952:45 CBC W/AUTO DIFF WBC (66823) Comments: PATIENT WAS FASTINGPERFORMED BY: [facility] Yhelha4156 [facility] [id number] Immature Grans (Abs) 0.0 {x10E3/uL} (Normal) Range: [...] 3.77-5.28 WBC 8.5 {x10E3/uL} (Normal) Range: 3.4-10.8 80-Eef-287864:26 VIRAL CULTURE (33849) Comments: throat; PATIENT NOT FASTINGPERFORMED BY: [facility] Ahitevbitw1869 [facility] [id number] Information: THROAT SRC: [id number] Viral Culture, General No virus isolated. (Normal) 12-Qgd-289451:26 Throat Culture (32365) Comments: PATIENT NOT FASTINGPERFORMED BY: [facility] Jxyaux6753 [facility] [id number] Information: SRC:TH Result 1 RRF (Normal) Comments: Routine respiratory jose Upper Respiratory Culture Final report (Normal) 02-Pnk-351755:44 Rapid Strep Test, Office (24297) Rapid Strep Test, Office Negative (Normal) 4-Thk-335265:24 Rapid Flu (63436 x 2) Influenza A Ag Negative (Normal) :05 Celiac Disease Comphrehensive Comments: PATIENT NOT FASTINGPERFORMED BY: [employer] Goojnc7710 [facility] [id number] Information: 159305,R40020 Profile (81695) Immunoglobulin A, Qn, Serum 200 mg/dL (Normal) [...] Positive >30 :05 CBC with auto diff (79143) Comments: PATIENT NOT FASTINGPERFORMED BY: [facility] Vhvxjs9462 [facility] [id number] Hematology Comments: Note: (Normal) Comments: Verified by [...] 8.3 {x10E3/uL} (Normal) Range: 3.4-10.8 :54 Amylase (86647) Comments: PATIENT NOT FASTINGPERFORMED BY: Mobule[address] [id number] BY: [address] [id number] Amylase, Serum 47 U/L (Normal) Range: 31-124 :54 Lipase (87336) Comments: PATIENT NOT FASTINGPERFORMED BY: Mobule[address] [id number] BY: [address] [id number] Lipase, Serum 34 U/L (Normal) Range: 0-59 64-Jhb-831743:54 HELICOBACTER PYLORI Comments: PATIENT NOT FASTINGPERFORMED BY: IMASTE Nivowp6567 [facility] [id number] BY: [address] [id number] ANTIBODY PROFILE IgG, IgM, IgA (97004) H. pylori, IgG Abs <0.9 U/mL (Normal) Range: 0.0-0.8 Comments: Negative <0.9 Indeterminate 0.9 - 1.0 Positive >1.0 82-Dsb-203274:54 Sed Rate Erythrocyte Comments: PATIENT NOT FASTINGPERFORMED BY: IMASTE Cwinnw[address] [id number] BY: Mobbles[address] [id number] (36416) Sedimentation Rate-Westergren 53 mm/h (Abnormal) Range: 0-40 34-Upv-180530:54 Metabolic Panel, Comments: PATIENT NOT FASTINGPERFORMED BY: Demohour[address] [id number] BY: Mobbles[address] [id number] Comprehensive (35495) ALT (SGPT) 14 [iU]/L (Normal) Range: 0-32 [...] Soluble Transferrin Comments: PATIENT NOT FASTINGPERFORMED BY: [employer]70 [facility] [id number] BY: Mobule[address] [id number] Receptor (76663) Soluble Transferrin Receptor 44.2 nmol/L (Abnormal) Range: 12.2-27.3 :54 SPEP (76652) Comments: PATIENT NOT FASTINGPERFORMED BY: [employer]70 [facility] [id number] BY: Mobule[address] [id number] Please note: SPRCS (Normal) Comments: Protein electrophoresis scan will follow via computer, mail, orcourier delivery. A/G Ratio 1.1 (Normal) Range: 0.7-2.0 Globulin, Total 3.6 g/dL (Normal) Range: 2.0-4.5 M-Isrrael Not Observed g/dL (Normal) Gamma Globulin 1.3 g/dL (Normal) Range: 0.5-1.6 Beta Globulin 1.2 g/dL (Normal) Range: 0.6-1.3 Ifalm-0-Ikvtcnvn 0.9 g/dL (Normal) Range: 0.4-1.2 Iprcx-4-Idnbddwf 0.2 g/dL (Normal) Range: 0.1-0.4 Albumin 3.8 g/dL (Normal) Range: 3.2-5.6 :54 UPEP (12378) Comments: PATIENT NOT FASTINGPERFORMED BY: MobuleMatthew [place] 5300270 [facility] [id number] BY: [address] [id number] Please note: SPRCS (Normal) Comments: Protein electrophoresis scan will follow via computer, mail, orcourier delivery. M-Isrrael, % Not Observed % (Normal) Gamma Globulin, U 34.1 % (Normal) Beta Globulin, U 30.6 % (Normal) Cwyts-0-Tajtssqj, U 14.3 % (Normal) Kkcdx-1-Pcpftiig, U 2.2 % (Normal) Albumin, U 18.8 % (Normal) Protein,Total,Urine 4.2 mg/dL (Normal) Range: 0.0-15.0 29-Ywj-776027:54 CARLOS TEST, DIRECT Comments: PATIENT NOT FASTINGPERFORMED BY: MobuleMatthew [place] 5300270 [facility] [id number] BY: [place] [id number] (40153) Carlos', Direct Negative (Normal) 36-Egv-408164:54 FOLIC ACID SERUM (68777) Comments: PATIENT NOT FASTINGPERFORMED BY: Mobule[address] [id number] BY: [address] [id number] Folate (Folic Acid), Serum 13.4 ng/mL (Normal) Comments: A serum folate concentration of less than 3.1 ng/mL isconsidered to represent clinical deficiency. 51-Nys-589288:54 Methymalonic Acid, Serum Comments: PATIENT NOT FASTINGPERFORMED BY: Mobule[address] [id number] BY: [address] [id number] (38109) Methylmalonic Acid, Serum 196 nmol/L (Normal) Range: 0-378 03-Xov-770374:54 VITAMIN B-12 Comments: PATIENT NOT FASTINGPERFORMED BY: [facility] Ezlagi8075 [facility] [id number] BY: [address] [id number] (CYANOCOBALAMIN) (78015) Vitamin B12 1299 pg/mL (Abnormal) Range: 211-946 37-Mut-249914:54 RETICULOCYTE COUNT MANUL Comments: PATIENT NOT FASTINGPERFORMED BY: LabCoMatthew [place] 5300270 [facility] [id number] BY: [address] [id number] (41693) Reticulocyte Count 1.0 % (Normal) Range: 0.6-2.6 43-Skt-628467:54 LDH (LD) (LACTATE Comments: PATIENT NOT FASTINGPERFORMED BY: LabICONICMatthew [place] 5300270 [facility] [id number] BY: [address] [id number] DEHYDROGENASE) (62811) LDH 159 [iU]/L (Normal) Range: 119-226 79-Wbp-927225:54 IRON BINDING CAPACITY Comments: PATIENT NOT FASTINGPERFORMED BY: LabBrian Ville 6223070 [facility] [id number] BY: [address] [id number] (TIBC) (92540) Iron Saturation 4 % (Abnormal) Range: 15-55 Iron, Serum 15 ug/dL (Abnormal) Range: 35-155 UIBC 363 ug/dL (Normal) Range: 150-375 Iron Bind.Cap.(TIBC) 378 ug/dL (Normal) Range: 250-450 82-Vyx-017711:54 FERRITIN (72288) Comments: PATIENT NOT FASTINGPERFORMED BY: [facility] Cadtqz9260 [facility] [id number] BY: [address] [id number] Ferritin, Serum 5 ng/mL (Abnormal) Range: 15-150 18-Qtx-448810:54 HAPTOGLOBIN (60655) Comments: PATIENT NOT FASTINGPERFORMED BY: LabCoRobert [facility] Johnson [facility] Hospital at RahwayEfdyyd2457 [facility] [id number] BY: Lab[address] [id number] Haptoglobin 282 mg/dL (Abnormal) Range: 34-200 59-Omq-100986:54 CBC, PLATELETS & AUT DIFF Comments: PATIENT NOT FASTINGPERFORMED BY: LabCoRobert [facility] Hospital at RahwayKtlhmp4009 [facility] [id number] BY: LabCo[address] [id number] Information: 323502,Z07714 (25579) Immature Grans (Abs) 0.0 {x10E3/uL} (Normal) Range: [...] Indication: Non-smoker Planned Observations METABOLIC PANEL, COMPREHENSIVE (20127)Indication: HTN (hypertension), benign On: 93-Brl-09785:56 Request LIPOPROTEIN, BLD, BY NMR (47725)Indication: HTN (hypertension), benign On: 33-Gcu-92229:56 Request CBC W/AUTO DIFF WBC (13831)Indication: HTN (hypertension), benign On: 99-Gsz-16596:56 Request OVA & PARASITE DIR SMEAR (28576)Indication: DIARRHEA (Renamed from D (diarrhea)) On: :41 Request OCCULT BLOOD FECES SCREEN (11599)Indication: DIARRHEA (Renamed from D (diarrhea)) On: :41 Request LEUKOCYTE COUNT, FECAL (81397)Indication: DIARRHEA (Renamed from D (diarrhea)) On: :41 Request C-DIFFICILE, STOOL (95451)Indication: DIARRHEA (Renamed from D (diarrhea)) On: :41 Request SHNANAN CULTURE-STOOL (06548)Indication: DIARRHEA (Renamed from D (diarrhea)) On: :41 Request FECAL OCCULT- Tubes sent home (79212)Indication: ANEMIA, UNSPECIFIED On: :40 Request IRON (95620)Indication: ANEMIA, UNSPECIFIED On: :40 Request Planned Encounters Medical; 4 Month FU - On: 14-Aug-2018 9:30 [facility] Billie Laurent DO, DO, Kathleen Planned Procedures ELECTROCARDIOGRAM, COMPLETE (ECG) On: 20-Apr-2018 Intent (71284)By: Aimee Rivera Comments: nsr no avute chg ELECTROCARDIOGRAM, COMPLETE (ECG) On: 30-Sep-2017 Intent (17526)By: Billie Laurent DO Comments: nsr poor R wave progression no acute chg Billie HUSSEIN Radiology - Chest- PA and LatBy: On: 24-Sep-2017 Intent Billie Laurent DO, DO, Comments: follow on abnormality 08/31 Billie Solu- Medrol Injection, 125mg On: 27-Aug-2017 Intent (J2930)By: Billie Laurent DO Comments: [id number] vialMLONG Billie HUSSEIN Aerosol Treatment (32845)By: Mehran On: 27-Aug-2017 Billie Adkins DO, DO, Kathleen Comments: less velcro noise more a/e less reactive cough Solu -Medrol Injection, 125 mg On: 25-Aug-2017 Intent (J2930)By: Billie Laurent DO Comments: solumedrol 125mg injectionlot: [id number]: 12/2019R GMpt tolerated wellAD WINDOWS CONSULTANT DO, Billie Rocephin Injection, 2 Gram (J0696)By: On: 25-Aug-2017 Intent Billie Laurent DO, DO, Comments: rochephin 2gm injection diluted in 4.2cc of 2% lidocainelot: [id number]: 05/2019L and R GM, 1gm in bothpt tolerated wellAD WINDOWS CONSULTANT Billie Aerosol Treatment (65127)By: Mehran On: 25-Aug-2017 Intent Billie HUSSEIN DO, Kathleen Comments: more a;e-- left side clearly rhonhci and exp wheeeze other side that was quiet now more a/e -- is wheezy in RLL too Radiology - Chest- PA and LatBy: On: 25-Aug-2017 Intent Billie Laurent DO, DO, Kathleen Aerosol Treatment (66740)By: Rose On: 19-Aug-2017 Intent Leslee LOZADA Spirometry (44037)By: Leslee Rose CNP On: 19-Aug-2017 Intent Christo Comments: mild restriction ELECTROCARDIOGRAM, COMPLETE (ECG) On: 28-Sep-2015 Intent (81591)By: Fermin Oviedo MD Radiology - Foot - [...]
--- OUTSIDE RECORDS SUMMARY | 2018-10-05 23:00 | XMS RPT_ITS | Continuity of Care Document ---
:1960 Author Organization [facility] Address [address] [place] [address] 2 [place] [address] Phone Care Team Providers Name Role Phone Billie Laurent DO Unavailable Dr. Sandoval Enrique Unavailable Bianca Fonseca Unavailable Dr. Juan Mercer Unavailable Gravius, Aimee Unavailable Unavailable Long CARE TEAM COORDINATOR SCHEDULER, Kathy L Unavailable Unavailable Unavailable Unavailable Problems Name Dates [...] needles a nd procedures, anxiety with colonoscopy.Works [employer],job changes, 23 yr old daughter has DOWNS and lives with her .Had counselling for PTSD after daughter was born. Status: Active BMI 38.0-38.9,adult (Z68.38, V85.38) Status: Active BMI 40.0-44.9, adult (Z68.41, V85.41) Comments: DIET AND EXERCISE:-health recomendations that are to be followed unless otherwise told unable to do are 10,000 steps a day (can buy a pedometer at [employer]), -5 days of week of 30 mins [...] join [employer] program me with [facility] for nutrition counselling. BMI 40.46.Cost 300 $ so does not want to spend the money.Does not exercise Status: Active Deliveries (Parity) Comments: 2. Status: Active Diverticular disease (K57.90, 562.10) Comments: based on CT scan abdomen /pelvis(03-31-15).High fiber diet Status: Active Elevated blood pressure reading (R03.0, 796.2) Comments: need to recheck in few weeks. Status: Active Elevated BP without diagnosis of hypertension (R03.0, 796.2) Status: Active GERD (530.81) Comments: History of [...] work because of her headaches. Status: Active Hypercholesteremia (Renamed from Hypercholesterolemia) (E78.00, [...] Dates Details Lisinopril-Hydrochlorothiazide 10-12.5 MG Oral Tablet 1 (one) Tablet bid for 0 days Quantity: 60 {Tablet} Refills: 0 Ordered:20-Apr-2018 Willy Laurent DO, DO, Kathleen Start : 20-Apr-2018 Active PriLOSEC 20 MG Oral Capsule Delayed [...] 30-Sep-2017 End : 30-Oct-2017 Inactive EXCEDRIN MIGRAINE, [id number] (Oral Tablet) 1 prn for migraines (250-250-65 [...] Medical History Name Dates Details Abnormal CXR (R93.8, 793.2) Comments: Repeat CXR to check for [...] resolvednow resolved Status: Inactive as of 25-Aug-2017 Pneumonia, bacterial (J15.9, 482.9) Status: Resolved as of 24-Sep-2017 Retracted ear drum, bilateral (H73.823, 384.82) Status: Inactive as of 30-Sep-2017 Procedures Procedure Dates Details Cholecystectomy Completed Comments: 2009 Left Knee, meniscus repair and arthroscopy Completed Comments: February 2009 Mammogram (01-19-2015) stable Completed Microvascular Decompression Completed Comments: February 2007 Date Value Details 24-Sep-2017 Chest PA and Lateral Result: Comments: See Note; NOTES: [facility] Imaging Services [address] [place] [address] Chest PA and Lateral MR#: [id number] Acct: [id number] Name: MICHELANABELLA FINLEY Ofelia Rep #: [id number] : 1960 F 57 From: Madi Sheikh DO PCP: Billie Laurent DO Status: REG CLI Study: Chest PA and Lateral Date of Exam: 09/24/17 Exam# [id number] Ordering Dr: Billie Laurent DO STUDY: X-RAY [...] Service support , CC: Billie Laurent DO Bead Picker: Signed 25-Aug-2017 Chest PA and Lateral Result: Comments: See Note; NOTES: [facility] Imaging Services [address] [place] [address] Chest PA and Lateral MR#: [id number] Acct: [id number] Name: ANABELLA MICHEL Rep #: [id number] : 1960 F 57 From: Tato Knox MD PCP: Billie Laurent DO Status: REG CLI Study: Chest PA and Lateral Date of Exam: 08/25/17 Exam# [id number] Ordering Dr: Billie Laurent DO STUDY: X- [...] Tato Knox MD at 14:06 EST Tel [phone], Service support , CC: Billie Laurent DO Bead Picker: Signed 16-Feb-2016 Bilat Scrn Digital AND CAD Result: Comments: See Note; NOTES: [facility] Imaging Services [address] [place] [address] Verdana 4d Bilat Scrn Digital AND CAD MR#: [id number] Acct: [id number] Name: ANABELLA MICHEL Rep #: [id number] : 1960 F 55 From: Tato Knox MD PCP: Fermin Oviedo Status: REG CLI Study: Bilat Scrn Digital AND CAD Date of Exam: 02/16/16 Exam# [id number] Ordering Dr: Bertha Richardson MD MAMMOGRAPHY - [...] delay biopsy of a clinically suspicious abnormality. [id number] Electronically Signed: Tato Knox MD a t 15:42 EDT Tel [phone], Service support [phone], CC: Fermin Oviedo; Sima Richardson MD Bead Picker: Signed Family History Unknown Family Member Name Dates Details Father Comments: diabestes, htn Status: Active Mother Comments: ulcerated colitis Status: Active Social History Name Dates Details No Caffeine Use Status: Active No Drug Use Status: Active Non Drinker/No Alcohol Use Status: Active Non Smoker/No Tobacco Use Status: Active Vital Signs Date Test Result Details :35 BP Systolic 146 mm[Hg] Comments: Patient [...] Weight 221.2 lb :51 Comments: 128/78, 89 ovane656/72, 92 qenuzlt066/68, 95 standing Temperature 98.7 f Pulse 90 /min Comments: Pattern: Regular Respiration Rate 16 /min Comments: Pattern: Unlabored O2 SAT 99 % Comments: Room air BP Systolic 128 mm[Hg] Comments: Patient Position: Sitting; Cuff Location: Left Arm; Cuff Size: Standard BP Diastolic 80 mm[Hg] Comments: Patient Position: Sitting; Cuff Location: Left Arm; Cuff Size: Standard Weight 216 lb Results Date Description Value Details 14-Cmv-191415:45 Microscopic Examination Comments: PATIENT WAS FASTINGPERFORMED BY: [employer] [facility] [id number] Bacteria Few (Normal) Mucus Threads Present (Normal) Epithelial Cells (non renal) 0-10 {/hpf} (Normal) Range: 0 - 10 RBC None seen {/hpf} (Normal) Range: 0 - 2 WBC 0-5 {/hpf} (Normal) Range: 0 - 5 70-Ihi-936931:45 URINALYSIS, W/ MICRO (16187) Comments: PATIENT WAS FASTINGPERFORMED BY: [employer] [facility] [id number] Microscopic Examination See below: (Normal) Comments: Microscopic was indicated and was performed. Nitrite, Urine Negative (Normal) Urobilinogen,Semi-Qn 0.2 mg/dL (Normal) Range: 0.2-1.0 Bilirubin Negative (Normal) Occult Blood Negative (Normal) Ketones Trace (Abnormal) Glucose Negative (Normal) Protein Negative (Normal) WBC Esterase Trace (Abnormal) Appearance Clear (Normal) Urine-Color Yellow (Normal) pH 6.0 (Normal) Range: 5.0-7.5 Specific [place] 1.014 (Normal) Range: 1.005-1.030 07-Zxs-992919:45 MICROALBUMIN: CREATININE RATIO Comments: PATIENT WAS FASTINGPERFORMED BY: IT MOVES ITAtlantiCare Regional Medical Center, Mainland CampusFgebmt3838 [facility] [id number] (56027) AND (52045) Alb/Creat Ratio 8.4 {mg/g_creat} (Normal) Range: 0.0-30.0 Albumin, Urine 3.9 ug/mL (Normal) Creatinine, Urine 46.4 mg/dL (Normal) 61-Cov-334828:45 METABOLIC PANEL, COMPREHENSIVE Comments: PATIENT WAS FASTINGPERFORMED BY: Interventional Spine Qelxpt8735 [facility] [id number] (72214) ALT (SGPT) 18 [iU]/L (Normal) Range: 0-32 [...] Glucose, Serum 88 mg/dL (Normal) Range: 65-99 31-Bgc-900076:45 LIPID PANEL (57685) Comments: PATIENT WAS FASTINGPERFORMED BY: AppiterateAtlantiCare Regional Medical Center, Mainland CampusLbfgdb2828 [facility] [id number] LDL/HDL Ratio 2.3 {ratio_units} (Normal) Range: 0.0-3.2 Comments: LDL/HDL Ratio Men Women 1/2 Avg.Risk 1.0 1.5 Av g.Risk 3.6 3.2 2X Avg.Risk 6.2 5.0 3X Avg.Risk 8.0 6.1 LDL Cholesterol Calc 146 mg/dL (Abnormal) Range: 0-99 VLDL Cholesterol Darwin 17 mg/dL (Normal) Range: 5-40 HDL Cholesterol 63 mg/dL (Normal) Triglycerides 83 mg/dL (Normal) Range: 0-149 Cholesterol, Total 226 mg/dL (Abnormal) Range: 100-199 86-Jky-094987:45 CBC W/AUTO DIFF WBC (53160) Comments: PATIENT WAS FASTINGPERFORMED BY: AppiterateAtlantiCare Regional Medical Center, Main[facility] CampusJjxaqn0059 [facility] [id number] Immature Grans (Abs) 0.0 {x10E3/uL} (Normal) Range: [...] 3.77-5.28 WBC 8.5 {x10E3/uL} (Normal) Range: 3.4-10.8 76-Hvd-155747:26 VIRAL CULTURE (31333) Comments: throat; PATIENT NOT FASTINGPERFORMED BY: [employer] [id number] Information: THROAT SRC: [id number] Viral Culture, General No virus isolated. (Normal) 31-Vtt-610446:26 Throat Culture (71991) Comments: PATIENT NOT FASTINGPERFORMED BY: [employer] [id number] Information: SRC: Result 1 RRF (Normal) Comments: Routine respiratory jose Upper Respiratory Culture Final report (Normal) 53-Zxn-419529:44 Rapid Strep Test, Office (20021) Rapid Strep Test, Office Negative (Normal) 0-Gbe-428304:24 Rapid Flu (99701 x 2) Influenza A Ag Negative (Normal) 15-Aug-20158:05 Celiac Disease Comphrehensive Comments: PATIENT NOT FASTINGPERFORMED BY: [employer] [id number] Information: 468067,Q49032 Profile (24643) Immunoglobulin A, Qn, Serum 200 mg/dL (Normal) [...] Positive >30 15-Aug-20158:05 CBC with auto diff (22303) Comments: PATIENT NOT FASTINGPERFORMED BY: [employer] Fytped8206 [facility] [id number] Hematology Comments: Note: (Normal) Comments: Verified by [...] 3.77-5.28 WBC 8.3 {x10E3/uL} (Normal) Range: 3.4-10.8 14-Vzq-613462:54 Amylase (27314) Comments: PATIENT NOT FASTINGPERFORMED BY: [address] [id number] BY: [address] [id number] Amylase, Serum 47 U/L (Normal) Range: 31-124 :54 Lipase (17300) Comments: PATIENT NOT FASTINGPERFORMED BY: [address] [id number] BY: [address] [id number] Lipase, Serum 34 U/L (Normal) Range: 0-59 86-Uyy-366156:54 HELICOBACTER PYLORI Comments: PATIENT NOT FASTINGPERFORMED BY: [address] [id number] BY: [address] [id number] ANTIBODY PROFILE IgG, IgM, IgA (36415) H. pylori, IgG Abs <0.9 U/mL (Normal) Range: 0.0-0.8 Comments: Negative <0.9 Indeterminate 0.9 - 1.0 Positive >1.0 :54 Sed Rate Erythrocyte Comments: PATIENT NOT FASTINGPERFORMED BY: [address] [id number] BY: [address] [id number] (37272) Sedimentation Rate-Westergren 53 mm/h (Abnormal) Range: 0-40 94-Ebn-746943:54 Metabolic Panel, Comments: PATIENT NOT FASTINGPERFORMED BY: IT MOVES IT Fogwgd5841 [facility] [id number] BY: [employer] [id number] Comprehensive (85259) ALT (SGPT) 14 [iU]/L (Normal) Range: 0-32 [...] Glucose, Serum 91 mg/dL (Normal) Range: 65-99 43-Kua-823053:54 Soluble Transferrin Comments: PATIENT NOT FASTINGPERFORMED BY: AppiterateAtlantiCare Regional Medical Center, Main[facility] CampusOtsfdv2524 [facility] [id number] BY: [employer] [id number] Receptor (75281) Soluble Transferrin Receptor 44.2 nmol/L (Abnormal) Range: 12.2-27.3 32-Jmr-782570:54 SPE (17796) Comments: PATIENT NOT FASTINGPERFORMED BY: IT MOVES IT Bqbmfm4684 [facility] [id number] BY: [employer] [id number] Please note: SPRCS (Normal) Comments: Protein electrophoresis scan will follow via computer, mail, orcourier delivery. A/G Ratio 1.1 (Normal) Range: 0.7-2.0 Globulin, Total 3.6 g/dL (Normal) Range: 2.0-4.5 M-Isrrael Not Observed g/dL (Normal) Gamma Globulin 1.3 g/dL (Normal) Range: 0.5-1.6 Beta Globulin 1.2 g/dL (Normal) Range: 0.6-1.3 Avghi-5-Ibpbitdx 0.9 g/dL (Normal) Range: 0.4-1.2 Lxrjl-1-Axirmion 0.2 g/dL (Normal) Range: 0.1-0.4 Albumin 3.8 g/dL (Normal) Range: 3.2-5.6 51-Ijc-740261:54 UP (86085) Comments: PATIENT NOT FASTINGPERFORMED BY: TORIAlin6370 [facility] [id number] BY: [employer] [id number] Please note: SPRCS (Normal) Comments: Protein electrophoresis scan will follow via computer, mail, orcourier delivery. M-Isrrael, % Not Observed % (Normal) Gamma Globulin, U 34.1 % (Normal) Beta Globulin, U 30.6 % (Normal) Xrvtn-6-Focydhzg, U 14.3 % (Normal) Ichfe-1-Csinhdyx, U 2.2 % (Normal) Albumin, U 18.8 % (Normal) Protein,Total,Urine 4.2 mg/dL (Normal) Range: 0.0-15.0 93-Nwp-273789:54 CARLOS TEST, DIRECT Comments: PATIENT NOT FASTINGPERFORMED BY: TORIA[address] [id number] BY: [address] [id number] (26900) Carlos', Direct Negative (Normal) 97-Uxr-363226:54 FOLIC ACID SERUM (37982) Comments: PATIENT NOT FASTINGPERFORMED BY: AppiterateAtlantiCare Regional Medical Center, Mainland CampusUfxpzv7911 Khan RoadDublin [place] [id number] BY: [address] [id number] Folate (Folic Acid), Serum 13.4 ng/mL (Normal) Comments: A serum folate concentration of less than 3.1 ng/mL isconsidered to represent clinical deficiency. 13-Kow-701596:54 Methymalonic Acid, Serum Comments: PATIENT NOT FASTINGPERFORMED BY: AppiterateAtlantiCare Regional Medical Center, Mainland CampusIjlmnd8733 Khna RoadDublin [place] [id number] BY: [place] [id number] (56774) Methylmalonic Acid, Serum 196 nmol/L (Normal) Range: 0-378 61-Shl-462516:54 VITAMIN B-12 Comments: PATIENT NOT FASTINGPERFORMED BY: AppiterateAtlantiCare Regional [facility] Center, Mainland CampusIpvxxv4385 Khan RoadDublin [place] [id number] BY: [address] [id number] (CYANOCOBALAMIN) (83970) Vitamin B12 1299 pg/mL (Abnormal) Range: 211-946 19-Gfe-675636:54 RETICULOCYTE COUNT MANUL Comments: PATIENT NOT FASTINGPERFORMED BY: [facility] Irwvqv5277 Kahn RoadDublin [place] [id number] BY: [address] [id number] (85910) Reticulocyte Count 1.0 % (Normal) Range: 0.6-2.6 62-Xei-792994:54 LDH (LD) (LACTATE Comments: PATIENT NOT FASTINGPERFORMED BY: [facility] Tvtddp0915 Khan RoadDublin [place] [id number] BY: [address] [id number] DEHYDROGENASE) (22455) LDH 159 [iU]/L (Normal) Range: 119-226 86-Xpm-952325:54 IRON BINDING CAPACITY Comments: PATIENT NOT FASTINGPERFORMED BY: [place] 3500070 [facility] [id number] BY: [address] [id number] (TIBC) (31012) Iron Saturation 4 % (Abnormal) Range: 15-55 Iron, Serum 15 ug/dL (Abnormal) Range: 35-155 UIBC 363 ug/dL (Normal) Range: 150-375 Iron Bind.Cap.(TIBC) 378 ug/dL (Normal) Range: 250-450 13-Her-536488:54 FERRITIN (23673) Comments: PATIENT NOT FASTINGPERFORMED BY: [place] 3500070 [facility] [id number] BY: [address] [id number] Ferritin, Serum 5 ng/mL (Abnormal) Range: 15-150 53-Fji-965693:54 HAPTOGLOBIN (41009) Comments: PATIENT NOT FASTINGPERFORMED BY: [place] 3500070 [facility] [id number] BY: [address] [id number] Haptoglobin 282 mg/dL (Abnormal) Range: 34-200 45-Ejl-852082:54 CBC, PLATELETS & AUT DIFF Comments: PATIENT NOT FASTINGPERFORMED BY: [place] 3500070 [facility] [id number] BY: [address] [id number] Information: 974226,Z73711 (27135) Immature Grans (Abs) 0.0 {x10E3/uL} (Normal) Range: [...] Plan of Care Name Dates Details Instructions Elevated BP without diagnosis of hypertension : [...] Eprescribed prescriptions (G8553) Indication: Non-smoker Planned Observations URINALYSIS, W/ MICRO (31609)Indication: Elevated BP without diagnosis of hypertension On: 9-Lfv-338830:52 Request METABOLIC PANEL, COMPREHENSIVE (33069)Indication: Elevated BP without diagnosis of hypertension On: 6-Eus-737155:52 Request CBC W/AUTO DIFF WBC (88622)Indication: Elevated BP without diagnosis of hypertension On: 0-Ysi-291884:52 Request OVA & PARASITE DIR SMEAR (64509)Indication: DIARRHEA (Renamed from D (diarrhea)) On: 99-Dns-550699:41 Request OCCULT BLOOD FECES SCREEN (98068)Indication: DIARRHEA (Renamed from D (diarrhea)) On: 19-Gfj-923382:41 Request LEUKOCYTE COUNT, FECAL (50733)Indication: DIARRHEA (Renamed from D (diarrhea)) On: 50-Gsd-985695:41 Request C-DIFFICILE, STOOL (80041)Indication: DIARRHEA (Renamed from D (diarrhea)) On: 22-Kdv-624859:41 Request SHANNAN CULTURE-STOOL (08092)Indication: DIARRHEA (Renamed from D (diarrhea)) On: 17-Syl-357606:41 Request FECAL OCCULT- Tubes sent home (10576)Indication: ANEMIA, UNSPECIFIED On: 98-Epq-994917:40 Request IRON (36051)Indication: ANEMIA, UNSPECIFIED On: 77-Vtj-857268:40 Request Planned Encounters Medical; 3 Week FU - On: 11-May-2018 9:30 [facility] Billie Laurent DO, DO, Kathleen Planned Procedures ELECTROCARDIOGRAM, COMPLETE (ECG) On: 20-Apr-2018 Intent (53943)By: Aimee Rivera Comments: nsr no avute chg ELECTROCARDIOGRAM, COMPLETE (ECG) On: 30-Sep-2017 Intent (46353)By: Billie Laurent DO Comments: nsr poor R wave progression no acute chg Billie HUSSEIN Radiology - Chest- PA and LatBy: On: 24-Sep-2017 Intent Billie Laurent DO, DO, Comments: follow on abnormality 08/31 Billie Solu- Medrol Injection, 125mg On: 27-Aug-2017 Intent (J2930)By: Billie Laurent DO Comments: [id number] vialMLONG , Billie Aerosol Treatment (43028)By: Mehran On: 27-Aug-2017 Billie Adkins DO, DO, Kathleen Comments: less velcro noise more a/e less reactive cough Solu -Medrol Injection, 125 mg On: 25-Aug-2017 Intent (J2930)By: Billie Laurent DO Comments: solumedrol 125mg injectionlot: [id number]: 12/2019R GMpt tolerated wellAD CARE TEAM COORDINATOR SCHEDULER DO, Billie Rocephin Injection, 2 Gram (J0696)By: On: 25-Aug-2017 Billie Patel DO, DO, Comments: rochephin 2gm injection diluted in 4.2cc of 2% lidocainelot: [id number]: 05/2019L and R GM, 1gm in bothpt tolerated wellAD CARE TEAM COORDINATOR SCHEDULER Billie Aerosol Treatment (96297)By: Mehran On: 25-Aug-2017 Billie Adkins DO, DO, Kathleen Comments: more a;e-- left side clearly rhonhci and exp wheeeze other side that was quiet now more a/e -- is wheezy in RLL too Radiology - Chest- PA and LatBy: On: 25-Aug-2017 Intent Billie Laurent DO, DO Billie Aerosol Treatment (12397)By: Rose On: 19-Aug-2017 Intent Leslee LOZADA Spirometry (80837)By: Leslee Rose CNP On: 19-Aug-2017 Intent Christo Comments: mild restriction ELECTROCARDIOGRAM, COMPLETE (ECG) On: 28-Sep-2015 Intent (56572)By: Ivelisse PALAFOX, Fermin Radiology - Foot - LeftBy: Ivelisse PALAFOX, [...] Mehran DO, Billie Instructions Name Dates Details Non-smoker : How to access health information [...] Instructions Indication: Non-smoker Encounters Office Visit On: 20-Apr-2018 9:36 Encounter Reason: [...]
--- OUTSIDE RECORDS SUMMARY | 2018-10-05 23:00 | XMS RPT_ITS ---
:1960 Author Organization [facility] Care Team Providers Name Role Phone Mehran DO, Billie Attending Unavailable Mehran DO, Billie Referring Unavailable Mehran DO, Billie Consulting Unavailable Mehran, Billie Attending Unavailable Mehran, Billie Referring Unavailable Mehran, Billie Primary Care Unavailable Mehran, Billie Attending Unavailable Mehran, Billie Referring Unavailable Mehran, Billie Primary Care Unavailable Mehran, Bilile Attending Unavailable Mehran, Billie Referring Unavailable Mehran, Billie Primary Care Unavailable PROBLEMS PROBLEMS DATE TYPE CONDITION / CODE ATTENDING STATUS SOURCE 04/23/2018 Unknown Z87.01 - Mehran, Billie Active [place] [facility] / Repository Z87.01(ICD-10) 08/25/2017 Unknown R05 - Cough / MehranBillie Active Juan J R05(ICD-10) [facility] [place] Repository PROCEDURES PROCEDURES No Procedure Records FoundRESULTS RESULTS SCREENING MAMM (CAD), Observed: 08/03/2018 Status: F Source: JU[place] J BILAT 11:47 AM [facility] [place] REPOSITORY [facility] Imaging Services [address] [place] [address] SCREENING MAMM (CAD), BILAT MR#: [id number] Acct: [id number] Name: ANABELLA MICHEL Rep #: [id number] : 1960 F 58 From: Tato Knox MD PCP: Billie Laurent DO Status: REG CLI Study: SCREENING MAMM (CAD), BILAT Date of Exam: 08/03/18 Exam# [id number] Ordering Dr: Billie Laurent DO MAMMOGRAPHY - BILATERAL SCREENING REASON FOR EXAM: Female, 58 years old. Routine annual screening examination. PERTINENT HISTORY: Grandmother with breast cancer. Aunt with breast cancer. TECHNIQUE: Digital bilateral breast omari (3D mammographic acquisition) in the CC and MLO projections. 2-D mediolateral oblique (MLO) and craniocaudad (CC) views of both breasts were obtained. CAD: Full Field Digital Mammography with Computer Added Detection was performed. COMPARISON: Comparison is made with prior study dated February 16, 2016 and January 19, 2015. FINDINGS: Breast Composition: There are scattered areas of fibroglandular density. There are no dominant masses or suspicious calcifications. No other significant abnormalities are identified. There has been no significant change since the prior study. BI/SCREENING MAMM (CAD), BILAT IMPRESSION: Stable bilateral screening mammogram. Yearly follow-up mammogram recommended. (A) ASSESSMENT CATEGORY: BIRADS Category 1: Negative. A letter regarding these results will be sent to the patient by the facility within 30 days. Approximately 10% of breast cancers are not detected by mammography. A normal mammogram should not delay biopsy of a clinically suspicious abnormality. [id number] Electronically Signed: Tato Knox MD at 12:56 EST Tel [phone], Service support , CC: Billie Laurent DO Biological Sciences Professor: Signed CHEST PA AND LATERAL Observed: 09/24/2017 Status: F Source: [place] 11[facility]46 [facility] Imaging Services [address] [place] [address] Chest PA and Lateral MR#: [id number] Acct: [id number] Name: ANABELLA MICHEL Ofelia Rep #: [id number] : 1960 F 57 From: Madi Sheikh DO PCP: Billie Laurent DO Status: REG CLI Study: Chest PA and Lateral Date of Exam: 09/24/17 Exam# [id number] Ordering Dr: Billie Laurent DO STUDY: X-RAY CHEST REASON FOR EXAM: Female, 57 years old. Pneumonia TECHNIQUE: PA and lateral views of the chest. COMPARISON: 08/25/2017 FINDINGS: The lungs are clear and expanded. There is no demonstrated pleural abnormality. Normal size heart. Normal mediastinum and keshia. Normal visualized pulmonary arteries. Normal visualized aortic arch and descending thoracic aorta. There are diffuse degenerative changes of the visualized thoracic spine. Degenerative changes are seen within the right acromioclavicular joint. There is no demonstrated abnormality of the visualized soft tissue structures of the upper abdomen. RAD/Chest PA and Lateral IMPRESSION: Degenerative changes, as described above. No demonstrated acute cardiopulmonary process. Electronically Signed: Madi Sheikh DO at 11:04 EDT Tel , Service support , CC: Billie Laurent DO Biological Sciences Professor: Signed CHEST PA AND LATERAL Observed: 08/25/2017 Status: F Source: [place] 1:37 PM [facility] REPOSITORY [facility] Imaging Services [address] [place] [address] Chest PA and Lateral MR#: [id number] Acct: [id number] Name: TANNA MICHELMitchell Gilbert Rep #: [id number] : 1960 F 57 From: Tato Knox MD PCP: Billie Laurent DO Status: REG CLI Study: Chest PA and Lateral Date of Exam: 08/25/17 Exam# [id number] Ordering Dr: Billie Laurent DO STUDY: X-RAY [...] aorta. There are degenerative changes of the visualized thoracic spine. Normal visualized ribs, clavicles, and shoulders. There is no demonstrated abnormality of the visualized soft tissue structures of the upper abdomen. RAD/Chest PA and Lateral IMPRESSION: Increased markings in the lingular segment of the left upper lobe suggestive of early infiltrate. Electronically Signed: Tato Knox MD at 14:06 EST Tel [phone], Service support , CC: Billie Laurent DO Biological Sciences Professor: Signed ALLERGIES ALLERGIES DATE TYPE / CODE NAME / CODE REACTION SEVERITY SOURCE 01/06/2017 Drug amoxicillin Vomiting Unknown [place] Allergy/416 trihydrate/[id number] [facility] 379265([facility] 707([facility] ED CT) Repository 01/06/2017 Drug potassium Vomiting Unknown Juan J Allergy/416 clavulanate/R39317 [facility] 920455([facility] 2809([facility] ED CT) Repository 01/06/2017 Drug carbamazepine/F006 Hives Unknown Juan J Allergy/416 019319(RXNORM) [facility] 308478([facility] ED CT) Repository 01/06/2017 Drug azithromycin/F0060 Vomiting Unknown [place] Allergy/416 82309(RXNORM) [facility] [id number]([facility]) Repository ENCOUNTERS ENCOUNTERS ADMIT/DISCHARGE ACCOUNT ADMITTING ENCOUNTER LOCATION SOURCE NUMBER CLASS 08/03/2018 [id number] Ambulatory [place] Juan J 5 [facility] ing:OPBI Repository 07/28/2018 [id number] Ambulatory Building:[facility] Practices Repository 09/24/2017 [id number] Ambulatory [place] 6 [facility] ing:HPRAD Repository 08/25/2017 [id number] Ambulatory [place] Juan J 5 [facility] ing:HPRAD Repository PAYERS PAYERS ENCOUNTER GUARANTOR PAYER SUBSCRIBER SOURCE 08/03/2018 ABDELRAHMAN A MICHEL Primary ABDELRAHMAN A MICHEL Juan J Jr.[address] Insurance:ANTHEMPolic JrPalak: [facility], [facility]: [id number] [address]Bzk: [id number] Repository adrian Date:2801-69-38SA () [id number] [place] [address]JM: 08/03/2018 Secondary NOT GIVENUNK Juan J Insurance:SELF PAY [facility] Number: Effective Repository Date:2018-06-11 07/28/2018 Anabella J Primary [facility] YoderD[facility]: Insurance:[place] YoderDOB: Repository /BSPolicy Number: [id number] [id number] [address] [place], [place] adrian [place], [place] [address]Xdf: (419) Date:5202-62-71Ispt 69034Zkf: () Name:[phone] () 377[address]Xqyrqlt, [place] [phone]: 09/24/2017 Abdelrahman A Michel Primary ABDELRAHMAN A Juan J [id number] Insurance:ANTHEMPolic YODERDOB: [place] Number: [id number] [id number]: 419 [id number] Repository [phone] () adrian Date:4925-29-35[address], [place] [address]VO: 09/24/2017 Secondary NOT GIVENUNK [place] Insurance:SELF PAY [facility] Number: Effective Repository Date:2017-09-24 08/25/2017 Abdelrahman Michel Primary ABDELRAHMAN Harvey [id number] Insurance:ANTHEMPolic YODERDOB: [facility] Number: [id number] 1964[address]Ntj: (680) [id number] Repository [phone] () adrian Date:4969-48-54C[address], [place] [address]SL: 08/25/2017 Secondary NOT GIVENUNK [place] Insurance:SELF PAY [facility] Number: Effective Repository Date:2017-08-25
--- OUTSIDE RECORDS SUMMARY | 2018-10-05 23:00 | XMS RPT_ITS | Continuity of Care Document ---
:1960 Author Organization [facility] Address [address] [place] [address] 2 [place] [address] Phone Care Team Providers Name Role Phone Billie Laurent DO Unavailable Dr. Sandoval Enrique Unavailable Bianca Fonseca Unavailable Dr. Juan Mercer Unavailable Gravius, Aimee Unavailable Unavailable Long MACHINE FOLDER, Kathy L Unavailable Unavailable Unavailable Unavailable Problems [...] needles a nd procedures, anxiety with colonoscopy.Works [employer],job changes, 23 yr old daughter has DOWNS and lives with her .Had counselling for PTSD after daughter was born. Status: Active BMI 38.0-38.9,adult (Z68.38, V85.38) Status: Active BMI 40.0-44.9, adult (Z68.41, V85.41) Comments: DIET AND EXERCISE:-health recomendations that are to be followed unless otherwise told unable to do are 10,000 steps a day (can buy a pedometer at [email or web address]), -5 days of week of 30 mins [...] week.Can join WHY WEIGHT program me with [facility] for nutrition counselling. BMI 40.46.Cost 300 $ [...] 30-Sep-2017 End : 30-Oct-2017 Inactive EXCEDRIN MIGRAINE, [phone] (Oral Tablet) 1 prn for migraines (250-250-65 [...] and Lateral Result: Comments: See Note; NOTES: [facility] Imaging Services [address] [place] [address] Chest PA and Lateral MR#: [id number] Acct: [id number] Name: MICHELANABELLA FINLEY Ofelia Rep #: [id number] : 1960 F 57 From: Madi Sheikh DO PCP: Billie Laurent DO Status: REG CLI Study: Chest PA and Lateral Date of Exam: 09/24/17 Exam# [id number] Ordering Dr: Billie Laurent DO STUDY: X-RAY [...] Service support , CC: Billie Laurent DO Routing Equipment Tender: Signed 25-Aug-2017 Chest PA and Lateral Result: Comments: See Note; NOTES: [facility] Imaging Services [address] [place] [address] Chest PA and Lateral MR#: [id number] Acct: [id number] Name: ANABELLA MICHEL Rep #: [id number] : 1960 F 57 From: Tato Knox MD PCP: Billie Laurent DO Status: REG CLI Study: Chest PA and Lateral Date of Exam: 08/25/17 Exam# [id number] Ordering Dr: Billie Laurent DO STUDY: X- [...] Tato Knox MD at 14:06 EST Tel [phone], Service support , CC: Billie Laurent DO Routing Equipment Tender: Signed 16-Feb-2016 Bilat Scrn Digital AND CAD Result: Comments: See Note; NOTES: [facility] Imaging Services [address] [place] [address] Verdana 4d Bilat Scrn Digital AND CAD MR#: [id number] Acct: [id number] Name: ANABELLA MICHEL Rep #: [id number] : 1960 F 55 From: Tato Knox MD PCP: Fermin Oviedo Status: REG CLI Study: Bilat Scrn Digital AND CAD Date of Exam: 02/16/16 Exam# [id number] Ordering Dr: Bertha Richardson MD MAMMOGRAPHY - [...] delay biopsy of a clinically suspicious abnormality. [id number] Electronically Signed: Tato Knox MD a t 15:42 EDT Tel [phone], Service support [phone], CC: Fermin Oviedo; Sima Richardson MD Routing Equipment Tender: Signed Family History Unknown Family Member Name [...] Weight 221.2 lb :51 Comments: 128/78, 89 hqkqa203/72, 92 jegunco831/68, 95 standing Temperature 98.7 f Pulse 90 /min Comments: Pattern: Regular Respiration Rate 16 /min Comments: Pattern: Unlabored O2 SAT 99 % Comments: Room air BP Systolic 128 mm[Hg] Comments: Patient Position: Sitting; Cuff Location: Left Arm; Cuff Size: Standard BP Diastolic 80 mm[Hg] Comments: Patient Position: Sitting; Cuff Location: Left Arm; Cuff Size: Standard Weight 216 lb Results Date Description Value Details 58-Oeq-086516:45 Microscopic Examination Comments: PATIENT WAS FASTINGPERFORMED BY: [facility] [id number] Bacteria Few (Normal) Mucus Threads Present (Normal) Epithelial Cells (non renal) 0-10 {/hpf} (Normal) Range: 0 - 10 RBC None seen {/hpf} (Normal) Range: 0 - 2 WBC 0-5 {/hpf} (Normal) Range: 0 - 5 06-Evw-001649:45 URINALYSIS, W/ MICRO (38264) Comments: PATIENT WAS FASTINGPERFORMED BY: [facility] [id number] Microscopic Examination See below: (Normal) Comments: Microscopic was indicated and was performed. Nitrite, Urine Negative (Normal) Urobilinogen,Semi-Qn 0.2 mg/dL (Normal) Range: 0.2-1.0 Bilirubin Negative (Normal) Occult Blood Negative (Normal) Ketones Trace (Abnormal) Glucose Negative (Normal) Protein Negative (Normal) WBC Esterase Trace (Abnormal) Appearance Clear (Normal) Urine-Color Yellow (Normal) pH 6.0 (Normal) Range: 5.0-7.5 Specific Limestone 1.014 (Normal) Range: 1.005-1.030 55-Vst-255423:45 MICROALBUMIN: CREATININE RATIO Comments: PATIENT WAS FASTINGPERFORMED BY: [facility] CenterVjczgv1389 [facility] [id number] (17362) AND (40488) Alb/Creat Ratio 8.4 {mg/g_creat} (Normal) Range: 0.0-30.0 Albumin, Urine 3.9 ug/mL (Normal) Creatinine, Urine 46.4 mg/dL (Normal) 79-Mgb-274355:45 METABOLIC PANEL, COMPREHENSIVE Comments: PATIENT WAS FASTINGPERFORMED BY: C-sam Mmusgu3365 [facility] [id number] (84752) ALT (SGPT) 18 [iU]/L (Normal) Range: 0-32 [...] Glucose, Serum 88 mg/dL (Normal) Range: 65-99 03-Esh-359419:45 LIPID PANEL (75483) Comments: PATIENT WAS FASTINGPERFORMED BY: [facility] CenterUkslrz5824 [facility] [id number] LDL/HDL Ratio 2.3 {ratio_units} (Normal) Range: 0.0-3.2 Comments: LDL/HDL Ratio Men Women 1/2 Avg.Risk 1.0 1.5 Av g.Risk 3.6 3.2 2X Avg.Risk 6.2 5.0 3X Avg.Risk 8.0 6.1 LDL Cholesterol Calc 146 mg/dL (Abnormal) Range: 0-99 VLDL Cholesterol Darwin 17 mg/dL (Normal) Range: 5-40 HDL Cholesterol 63 mg/dL (Normal) Triglycerides 83 mg/dL (Normal) Range: 0-149 Cholesterol, Total 226 mg/dL (Abnormal) Range: 100-199 52-Elr-716661:45 CBC W/AUTO DIFF WBC (35983) Comments: PATIENT WAS FASTINGPERFORMED BY: [facility] CenterVkjvmp5299 [facility] [id number] Immature Grans (Abs) 0.0 {x10E3/uL} (Normal) Range: [...] 3.77-5.28 WBC 8.5 {x10E3/uL} (Normal) Range: 3.4-10.8 04-Ruq-148430:26 VIRAL CULTURE (57880) Comments: throat; PATIENT NOT FASTINGPERFORMED BY: [facility] [id number] Information: THROAT SRC: [id number] Viral Culture, General No virus isolated. (Normal) 63-Rrq-187796:26 Throat Culture (17820) Comments: PATIENT NOT FASTINGPERFORMED BY: [facility] [id number] Information: SRC: Result 1 RRF (Normal) Comments: Routine respiratory jose Upper Respiratory Culture Final report (Normal) 51-Cgk-279017:44 Rapid Strep Test, Office (96256) Rapid Strep Test, Office Negative (Normal) 0-Zcs-069686:24 Rapid Flu (46497 x 2) Influenza A Ag Negative (Normal) 15-Aug-20158:05 Celiac Disease Comphrehensive Comments: PATIENT NOT FASTINGPERFORMED BY: [facility] [id number] Information: [id number],[id number] Profile (18300) Immunoglobulin A, Qn, Serum 200 mg/dL (Normal) [...] Positive >30 15-Aug-20158:05 CBC with auto diff (79134) Comments: PATIENT NOT FASTINGPERFORMED BY: [facility] Aykruo1140 [facility] [id number] Hematology Comments: Note: (Normal) Comments: Verified by [...] 3.77-5.28 WBC 8.3 {x10E3/uL} (Normal) Range: 3.4-10.8 03-Sqh-112430:54 Amylase (10215) Comments: PATIENT NOT FASTINGPERFORMED BY: [address] [id number] BY: [address] [id number] Amylase, Serum 47 U/L (Normal) Range: 31-124 :54 Lipase (57859) Comments: PATIENT NOT FASTINGPERFORMED BY: [address] [id number] BY: [address] [id number] Lipase, Serum 34 U/L (Normal) Range: 0-59 43-Lyq-510869:54 HELICOBACTER PYLORI Comments: PATIENT NOT FASTINGPERFORMED BY: [address] [id number] BY: [address] [id number] ANTIBODY PROFILE IgG, IgM, IgA (35374) H. pylori, IgG Abs <0.9 U/mL (Normal) Range: 0.0-0.8 Comments: Negative <0.9 Indeterminate 0.9 - 1.0 Positive >1.0 :54 Sed Rate Erythrocyte Comments: PATIENT NOT FASTINGPERFORMED BY: [address] [id number] BY: [address] [id number] (23764) Sedimentation Rate-Westergren 53 mm/h (Abnormal) Range: 0-40 43-Olw-689381:54 Metabolic Panel, Comments: PATIENT NOT FASTINGPERFORMED BY: [employer] Xpzlid0848 [facility] [id number] BY: [facility] [id number] Comprehensive (13276) ALT (SGPT) 14 [iU]/L (Normal) Range: 0-32 [...] Glucose, Serum 91 mg/dL (Normal) Range: 65-99 35-Sjn-145374:54 Soluble Transferrin Comments: PATIENT NOT FASTINGPERFORMED BY: [facility] CenterYttyhh5368 [facility] [id number] BY: [facility] [id number] Receptor (63826) Soluble Transferrin Receptor 44.2 nmol/L (Abnormal) Range: 12.2-27.3 39-Sgo-004585:54 SPE (07777) Comments: PATIENT NOT FASTINGPERFORMED BY: [employer] Ejjibi1768 [facility] [id number] BY: [facility] [id number] Please note: SPRCS (Normal) Comments: Protein electrophoresis scan will follow via computer, mail, orcourier delivery. A/G Ratio 1.1 (Normal) Range: 0.7-2.0 Globulin, Total 3.6 g/dL (Normal) Range: 2.0-4.5 M-Isrrael Not Observed g/dL (Normal) Gamma Globulin 1.3 g/dL (Normal) Range: 0.5-1.6 Beta Globulin 1.2 g/dL (Normal) Range: 0.6-1.3 Sojcf-0-Udgrypvq 0.9 g/dL (Normal) Range: 0.4-1.2 Bgfms-5-Prvjvzrq 0.2 g/dL (Normal) Range: 0.1-0.4 Albumin 3.8 g/dL (Normal) Range: 3.2-5.6 61-Hfr-312783:54 UP (05167) Comments: PATIENT NOT FASTINGPERFORMED BY: [employer]in6370 [facility] [id number] BY: [facility] [id number] Please note: SPRCS (Normal) Comments: Protein electrophoresis scan will follow via computer, mail, orcourier delivery. M-Isrrael, % Not Observed % (Normal) Gamma Globulin, U 34.1 % (Normal) Beta Globulin, U 30.6 % (Normal) Fande-8-Ztqnatfy, U 14.3 % (Normal) Eewhv-0-Dmjovjhn, U 2.2 % (Normal) Albumin, U 18.8 % (Normal) Protein,Total,Urine 4.2 mg/dL (Normal) Range: 0.0-15.0 19-Agk-318800:54 CARLOS TEST, DIRECT Comments: PATIENT NOT FASTINGPERFORMED BY: [employer] [id number] BY: [address] [id number] (66970) Carlos', Direct Negative (Normal) 90-Vkc-874237:54 FOLIC ACID SERUM (37132) Comments: PATIENT NOT FASTINGPERFORMED BY: [facility] CenterMwyfus0646 Khan RoadDublin [place] [id number] BY: [address] [id number] Folate (Folic Acid), Serum 13.4 ng/mL (Normal) Comments: A serum folate concentration of less than 3.1 ng/mL isconsidered to represent clinical deficiency. 10-Tii-864390:54 Methymalonic Acid, Serum Comments: PATIENT NOT FASTINGPERFORMED BY: [facility] Medical CenterTpqmmb5059 Khan RoadDublin [place] [id number] BY: [place] [id number] (66114) Methylmalonic Acid, Serum 196 nmol/L (Normal) Range: 0-378 24-Ekt-962094:54 VITAMIN B-12 Comments: PATIENT NOT FASTINGPERFORMED BY: [facility]our[facility] CenterOdjizt1352 Khan RoadDublin [place] [id number] BY: [address] [id number] (CYANOCOBALAMIN) (91062) Vitamin B12 1299 pg/mL (Abnormal) Range: 211-946 57-Rru-867585:54 RETICULOCYTE COUNT MANUL Comments: PATIENT NOT FASTINGPERFORMED BY: [facility] Lpljbq2794 Khan RoadDublin [place] [id number] BY: [address] [id number] (82900) Reticulocyte Count 1.0 % (Normal) Range: 0.6-2.6 37-Hgl-923992:54 LDH (LD) (LACTATE Comments: PATIENT NOT FASTINGPERFORMED BY: [facility] Vwoicx9161 Khan RoadDublin [place] [id number] BY: [address] [id number] DEHYDROGENASE) (49524) LDH 159 [iU]/L (Normal) Range: 119-226 28-Urs-849183:54 IRON BINDING CAPACITY Comments: PATIENT NOT FASTINGPERFORMED BY: [place] 4184270 [facility] [id number] BY: [address] [id number] (TIBC) (19216) Iron Saturation 4 % (Abnormal) Range: 15-55 Iron, Serum 15 ug/dL (Abnormal) Range: 35-155 UIBC 363 ug/dL (Normal) Range: 150-375 Iron Bind.Cap.(TIBC) 378 ug/dL (Normal) Range: 250-450 29-Enj-179658:54 FERRITIN (35164) Comments: PATIENT NOT FASTINGPERFORMED BY: [place] 4184270 [facility] [id number] BY: [address] [id number] Ferritin, Serum 5 ng/mL (Abnormal) Range: 15-150 52-Rve-198967:54 HAPTOGLOBIN (32361) Comments: PATIENT NOT FASTINGPERFORMED BY: [place] 4184270 [facility] [id number] BY: [address] [id number] Haptoglobin 282 mg/dL (Abnormal) Range: 34-200 53-Kln-090156:54 CBC, PLATELETS & AUT DIFF Comments: PATIENT NOT FASTINGPERFORMED BY: [place] 4184270 [facility] [id number] BY: [address] [id number] Information: [id number],L26753 (36339) Immature Grans (Abs) 0.0 {x10E3/uL} (Normal) Range: [...] Indication: Non-smoker Planned Observations URINALYSIS, W/ MICRO (65164)Indication: Elevated BP without diagnosis of hypertension On: 0-Znk-312387:52 Request METABOLIC PANEL, COMPREHENSIVE (69209)Indication: Elevated BP without diagnosis of hypertension On: 3-Bxl-710077:52 Request CBC W/AUTO DIFF WBC (61305)Indication: Elevated BP without diagnosis of hypertension On: 2-Igr-021506:52 Request OVA & PARASITE DIR SMEAR (74342)Indication: DIARRHEA (Renamed from D (diarrhea)) On: 03-Spd-189054:41 Request OCCULT BLOOD FECES SCREEN (16445)Indication: DIARRHEA (Renamed from D (diarrhea)) On: 73-Rhp-508191:41 Request LEUKOCYTE COUNT, FECAL (85085)Indication: DIARRHEA (Renamed from D (diarrhea)) On: 82-Bvz-233123:41 Request C-DIFFICILE, STOOL (77054)Indication: DIARRHEA (Renamed from D (diarrhea)) On: 94-Wko-708397:41 Request SHANNAN CULTURE-STOOL (85846)Indication: DIARRHEA (Renamed from D (diarrhea)) On: 17-Zup-653308:41 Request FECAL OCCULT- Tubes sent home (52684)Indication: ANEMIA, UNSPECIFIED On: 85-Sfu-091109:40 Request IRON (17042)Indication: ANEMIA, UNSPECIFIED On: 06-Snc-593565:40 Request Planned Encounters Medical; 3 Week FU - On: 11-May-2018 9:30 [facility] Billie Laurent DO, DO, Kathleen Planned Procedures ELECTROCARDIOGRAM, COMPLETE (ECG) On: 20-Apr-2018 Intent (80341)By: Aimee Rivera Comments: nsr no avute chg ELECTROCARDIOGRAM, COMPLETE (ECG) On: 30-Sep-2017 Intent (71474)By: Billie Laurent DO Comments: nsr poor R wave progression no acute chg Billie HUSSEIN Radiology - Chest- PA and LatBy: On: 24-Sep-2017 Intent Billie Laurent DO, DO, Comments: follow on abnormality 08/31 Billie Solu- Medrol Injection, 125mg On: 27-Aug-2017 Intent (J2930)By: Billie Laurent DO Comments: [id number] vialMLONG , Billie Aerosol Treatment (53960)By: Mehran On: 27-Aug-2017 Billie Adkins DO, DO, Kathleen Comments: less velcro noise more a/e less reactive cough Solu -Medrol Injection, 125 mg On: 25-Aug-2017 Intent (J2930)By: Billie Laurent DO Comments: solumedrol 125mg injectionlot: [id number]: 12/2019R GMpt tolerated wellAD MACHINE FOLDER DO, Billie Rocephin Injection, 2 Gram (J0696)By: On: 25-Aug-2017 Billie Patel DO, DO, Comments: rochephin 2gm injection diluted in 4.2cc of 2% lidocainelot: 7717Q50vrb: 05/2019L and R GM, 1gm in bothpt tolerated wellAD MACHINE FOLDER Billie Aerosol Treatment (52322)By: Mehran On: 25-Aug-2017 Billie Adkins DO, DO, Kathleen Comments: more a;e-- left side clearly rhonhci and exp wheeeze other side that was quiet now more a/e -- is wheezy in RLL too Radiology - Chest- PA and LatBy: On: 25-Aug-2017 Intent Billie Laurent DO, DO Billie Aerosol Treatment (61720)By: Rose On: 19-Aug-2017 Intent Leslee LOZADA Spirometry (88592)By: Leslee Rose CNP On: 19-Aug-2017 Intent Christo Comments: mild restriction ELECTROCARDIOGRAM, COMPLETE (ECG) On: 28-Sep-2015 Intent (93631)By: Ivelisse PALAFOX, Fermin Radiology - Foot - [...]
--- OUTSIDE RECORDS SUMMARY | 2018-10-05 23:00 | XMS RPT_ITS | Continuity of Care Document ---
:1960 Author Organization [facility] Address [address] [place] [address] 2 [place] [address] Phone Care Team Providers Name Role Phone Billie Laurent DO Unavailable Dr. Sandoval Enrique Unavailable Bianca Fonseca Unavailable Dr. Juan Mercer Unavailable Gravius, Aimee Unavailable Unavailable Long SILK SCREEN PRINTING RACKER, Kathy L Unavailable Unavailable Unavailable Unavailable Problems [...] needles a nd procedures, anxiety with colonoscopy.Works [email or web address],job changes, 23 yr old daughter has DOWNS and lives with her .Had counselling for PTSD after daughter was born. Status: Active BMI 38.0-38.9,adult (Z68.38, V85.38) Status: Active BMI 40.0-44.9, adult (Z68.41, V85.41) Comments: DIET AND EXERCISE:-health recomendations that are to be followed unless otherwise told unable to do are 10,000 steps a day (can buy a pedometer at [employer]), -5 days of week of 30 mins [...] week.Can join WHY WEIGHT program me with [facility] for nutrition counselling. BMI 40.46.Cost 300 [...] 30-Sep-2017 End : 30-Oct-2017 Inactive EXCEDRIN MIGRAINE, [phone] (Oral Tablet) 1 prn for migraines (250-250-65 [...] and Lateral Result: Comments: See Note; NOTES: [facility] Imaging Services [address] [place] [address] Chest PA and Lateral MR#: [id number] Acct: [id number] Name: MICHELANABELLA FINLEY Ofelia Rep #: [id number] : 1960 F 57 From: Madi Sheikh DO PCP: Billie Laurent DO Status: REG CLI Study: Chest PA and Lateral Date of Exam: 09/24/17 Exam# [id number] Ordering Dr: Billie Laurent DO STUDY: X-RAY [...] Service support , CC: Billie Laurent DO Dope Edger: Signed 25-Aug-2017 Chest PA and Lateral Result: Comments: See Note; NOTES: [facility] Imaging Services [address] [place] [address] Chest PA and Lateral MR#: [id number] Acct: [id number] Name: ANABELLA MICHEL Rep #: [id number] : 1960 F 57 From: Tato Knox MD PCP: Billie Laurent DO Status: REG CLI Study: Chest PA and Lateral Date of Exam: 08/25/17 Exam# [id number] Ordering Dr: Billie Laurent DO STUDY: X- [...] Tato Knox MD at 14:06 EST Tel [phone], Service support , CC: Billie Laurent DO Dope Edger: Signed 16-Feb-2016 Bilat Scrn Digital AND CAD Result: Comments: See Note; NOTES: [facility] Imaging Services [address] [place] [address] Verdana 4d Bilat Scrn Digital AND CAD MR#: [id number] Acct: [id number] Name: ANABELLA MICHEL Rep #: [id number] : 1960 F 55 From: Tato Knox MD PCP: Fermin Oviedo Status: REG CLI Study: Bilat Scrn Digital AND CAD Date of Exam: 02/16/16 Exam# [id number] Ordering Dr: Bertha Richardson MD MAMMOGRAPHY - [...] delay biopsy of a clinically suspicious abnormality. [id number] Electronically Signed: Tato Knox MD a t 15:42 EDT Tel [phone], Service support [phone], CC: Fermin Oviedo; Sima Richardson MD Dope Edger: Signed Family History Unknown Family Member Name [...] lb :51 Comments: 128/78, 89 /72, 92 xheghis527/68, 95 standing Temperature 98.7 f Pulse 90 /min Comments: Pattern: Regular Respiration Rate 16 /min Comments: Pattern: Unlabored O2 SAT 99 % Comments: Room air BP Systolic 128 mm[Hg] Comments: Patient Position: Sitting; Cuff Location: Left Arm; Cuff Size: Standard BP Diastolic 80 mm[Hg] Comments: Patient Position: Sitting; Cuff Location: Left Arm; Cuff Size: Standard Weight 216 lb Results Date Description Value Details 98-Ljt-310113:45 Microscopic Examination Comments: PATIENT WAS FASTINGPERFORMED BY: [facility] [id number] Bacteria Few (Normal) Mucus Threads Present (Normal) Epithelial Cells (non renal) 0-10 {/hpf} (Normal) Range: 0 - 10 RBC None seen {/hpf} (Normal) Range: 0 - 2 WBC 0-5 {/hpf} (Normal) Range: 0 - 5 31-Ywa-878180:45 URINALYSIS, W/ MICRO (43697) Comments: PATIENT WAS FASTINGPERFORMED BY: [facility] [id number] Microscopic Examination See below: (Normal) Comments: Microscopic was indicated and was performed. Nitrite, Urine Negative (Normal) Urobilinogen,Semi-Qn 0.2 mg/dL (Normal) Range: 0.2-1.0 Bilirubin Negative (Normal) Occult Blood Negative (Normal) Ketones Trace (Abnormal) Glucose Negative (Normal) Protein Negative (Normal) WBC Esterase Trace (Abnormal) Appearance Clear (Normal) Urine-Color Yellow (Normal) pH 6.0 (Normal) Range: 5.0-7.5 Specific [place] 1.014 (Normal) Range: 1.005-1.030 68-Avh-159319:45 MICROALBUMIN: CREATININE RATIO Comments: PATIENT WAS FASTINGPERFORMED BY: [facility] [facility] RiverQpaojo5813 [facility] [id number] (37519) AND (81288) Alb/Creat Ratio 8.4 {mg/g_creat} (Normal) Range: 0.0-30.0 Albumin, Urine 3.9 ug/mL (Normal) Creatinine, Urine 46.4 mg/dL (Normal) 88-Lsv-912972:45 METABOLIC PANEL, COMPREHENSIVE Comments: PATIENT WAS FASTINGPERFORMED BY: [employer] Escktq5957 [facility] [id number] (64916) ALT (SGPT) 18 [iU]/L (Normal) Range: 0-32 [...] Glucose, Serum 88 mg/dL (Normal) Range: 65-99 41-Mxk-975265:45 LIPID PANEL (78160) Comments: PATIENT WAS FASTINGPERFORMED BY: [facility] RiverBrhpro0608 [facility] [id number] LDL/HDL Ratio 2.3 {ratio_units} (Normal) Range: 0.0-3.2 Comments: LDL/HDL Ratio Men Women 1/2 Avg.Risk 1.0 1.5 Av g.Risk 3.6 3.2 2X Avg.Risk 6.2 5.0 3X Avg.Risk 8.0 6.1 LDL Cholesterol Calc 146 mg/dL (Abnormal) Range: 0-99 VLDL Cholesterol Darwin 17 mg/dL (Normal) Range: 5-40 HDL Cholesterol 63 mg/dL (Normal) Triglycerides 83 mg/dL (Normal) Range: 0-149 Cholesterol, Total 226 mg/dL (Abnormal) Range: 100-199 17-Zjk-492964:45 CBC W/AUTO DIFF WBC (00732) Comments: PATIENT WAS FASTINGPERFORMED BY: [facility] RiverWaihth4419 [facility] [id number] Immature Grans (Abs) 0.0 {x10E3/uL} (Normal) Range: [...] 3.77-5.28 WBC 8.5 {x10E3/uL} (Normal) Range: 3.4-10.8 32-Mxn-888139:26 VIRAL CULTURE (21074) Comments: throat; PATIENT NOT FASTINGPERFORMED BY: [facility] [id number] Information: THROAT SRC: [id number] Viral Culture, General No virus isolated. (Normal) 80-Xsw-754277:26 Throat Culture (84509) Comments: PATIENT NOT FASTINGPERFORMED BY: [facility] [id number] Information: SRC: Result 1 RRF (Normal) Comments: Routine respiratory jose Upper Respiratory Culture Final report (Normal) 53-Flm-906492:44 Rapid Strep Test, Office (68834) Rapid Strep Test, Office Negative (Normal) 8-Afy-765896:24 Rapid Flu (96107 x 2) Influenza A Ag Negative (Normal) 15-Aug-20158:05 Celiac Disease Comphrehensive Comments: PATIENT NOT FASTINGPERFORMED BY: [facility] [id number] Information: [id number] Profile (89969) Immunoglobulin A, Qn, Serum 200 mg/dL (Normal) [...] Positive >30 15-Aug-20158:05 CBC with auto diff (36187) Comments: PATIENT NOT FASTINGPERFORMED BY: [facility] Vqehgl0464 [facility] [id number] Hematology Comments: Note: (Normal) Comments: Verified by [...] 3.77-5.28 WBC 8.3 {x10E3/uL} (Normal) Range: 3.4-10.8 93-Gct-134033:54 Amylase (21918) Comments: PATIENT NOT FASTINGPERFORMED BY: [address] [id number] BY: [address] [id number] Amylase, Serum 47 U/L (Normal) Range: 31-124 :54 Lipase (68406) Comments: PATIENT NOT FASTINGPERFORMED BY: [address] [id number] BY: [address] [id number] Lipase, Serum 34 U/L (Normal) Range: 0-59 14-Kqg-495523:54 HELICOBACTER PYLORI Comments: PATIENT NOT FASTINGPERFORMED BY: [address] [id number] BY: [address] [id number] ANTIBODY PROFILE IgG, IgM, IgA (53316) H. pylori, IgG Abs <0.9 U/mL (Normal) Range: 0.0-0.8 Comments: Negative <0.9 Indeterminate 0.9 - 1.0 Positive >1.0 :54 Sed Rate Erythrocyte Comments: PATIENT NOT FASTINGPERFORMED BY: [address] [id number] BY: [address] [id number] (14930) Sedimentation Rate-Westergren 53 mm/h (Abnormal) Range: 0-40 81-Mkb-526291:54 Metabolic Panel, Comments: PATIENT NOT FASTINGPERFORMED BY: [employer] Hfnxfy0842 [facility] [id number] BY: [employer] [id number] Comprehensive (88299) ALT (SGPT) 14 [iU]/L (Normal) Range: 0-32 [...] Glucose, Serum 91 mg/dL (Normal) Range: 65-99 90-Ahd-695088:54 Soluble Transferrin Comments: PATIENT NOT FASTINGPERFORMED BY: [facility]Health[facility] T[facility] RiverDcaaqr5390 [facility] [id number] BY: [facility] [id number] Receptor (68011) Soluble Transferrin Receptor 44.2 nmol/L (Abnormal) Range: 12.2-27.3 33-Qwr-973774:54 SPE (97804) Comments: PATIENT NOT FASTINGPERFORMED BY: [employer] Ynbwpl6984 [facility] [id number] BY: [facility] [id number] Please note: SPRCS (Normal) Comments: Protein electrophoresis scan will follow via computer, mail, orcourier delivery. A/G Ratio 1.1 (Normal) Range: 0.7-2.0 Globulin, Total 3.6 g/dL (Normal) Range: 2.0-4.5 M-Isrrael Not Observed g/dL (Normal) Gamma Globulin 1.3 g/dL (Normal) Range: 0.5-1.6 Beta Globulin 1.2 g/dL (Normal) Range: 0.6-1.3 Cchuz-4-Cgvdyhmo 0.9 g/dL (Normal) Range: 0.4-1.2 Ogbqq-8-Altbuojl 0.2 g/dL (Normal) Range: 0.1-0.4 Albumin 3.8 g/dL (Normal) Range: 3.2-5.6 51-Zhs-336843:54 UP (95731) Comments: PATIENT NOT FASTINGPERFORMED BY: [employer]6370 [facility] [id number] BY: [employer] [id number] Please note: SPRCS (Normal) Comments: Protein electrophoresis scan will follow via computer, mail, orcourier delivery. M-Isrrael, % Not Observed % (Normal) Gamma Globulin, U 34.1 % (Normal) Beta Globulin, U 30.6 % (Normal) Lyqjy-7-Pdeioebe, U 14.3 % (Normal) Ftpwc-4-Qeucxleu, U 2.2 % (Normal) Albumin, U 18.8 % (Normal) Protein,Total,Urine 4.2 mg/dL (Normal) Range: 0.0-15.0 42-Rqm-974849:54 CARLOS TEST, DIRECT Comments: PATIENT NOT FASTINGPERFORMED BY: [employer] [id number] BY: [address] [id number] (47278) Carlos', Direct Negative (Normal) 26-Vlm-331963:54 FOLIC ACID SERUM (79022) Comments: PATIENT NOT FASTINGPERFORMED BY: [facility]Health[facility] Toms RiverGzqmmj3370 Khan RoadDublin [place] [id number] BY: [address] [id number] Folate (Folic Acid), Serum 13.4 ng/mL (Normal) Comments: A serum folate concentration of less than 3.1 ng/mL isconsidered to represent clinical deficiency. 39-Qri-223203:54 Methymalonic Acid, Serum Comments: PATIENT NOT FASTINGPERFORMED BY: [facility]Health[facility] Toms RiverHgvjbi1065 Khan RoadDublin [place] [id number] BY: [place] [id number] (63602) Methylmalonic Acid, Serum 196 nmol/L (Normal) Range: 0-378 07-Dtf-319105:54 VITAMIN B-12 Comments: PATIENT NOT FASTINGPERFORMED BY: [facility]Health[facility] Toms RiverFspgkj9471 Khan RoadDublin [place] [id number] BY: [address] [id number] (CYANOCOBALAMIN) (89890) Vitamin B12 1299 pg/mL (Abnormal) Range: 211-946 89-Nka-488179:54 RETICULOCYTE COUNT MANUL Comments: PATIENT NOT FASTINGPERFORMED BY: [facility] Bfpmvr5455 Khan RoadDublin [place] [id number] BY: [address] [id number] (44002) Reticulocyte Count 1.0 % (Normal) Range: 0.6-2.6 63-Uba-288333:54 LDH (LD) (LACTATE Comments: PATIENT NOT FASTINGPERFORMED BY: [facility] Wtywvj3723 Khan RoadDublin [place] [id number] BY: [address] [id number] DEHYDROGENASE) (54883) LDH 159 [iU]/L (Normal) Range: 119-226 21-Ipl-319901:54 IRON BINDING CAPACITY Comments: PATIENT NOT FASTINGPERFORMED BY: [place] 5703370 [facility] [id number] BY: [address] [id number] (TIBC) (09124) Iron Saturation 4 % (Abnormal) Range: 15-55 Iron, Serum 15 ug/dL (Abnormal) Range: 35-155 UIBC 363 ug/dL (Normal) Range: 150-375 Iron Bind.Cap.(TIBC) 378 ug/dL (Normal) Range: 250-450 21-Jmn-953527:54 FERRITIN (44416) Comments: PATIENT NOT FASTINGPERFORMED BY: [place] 5703370 [facility] [id number] BY: [address] [id number] Ferritin, Serum 5 ng/mL (Abnormal) Range: 15-150 95-Uiz-063818:54 HAPTOGLOBIN (27190) Comments: PATIENT NOT FASTINGPERFORMED BY: [place] 5703370 [facility] [id number] BY: [address] [id number] Haptoglobin 282 mg/dL (Abnormal) Range: 34-200 77-Qvh-487449:54 CBC, PLATELETS & AUT DIFF Comments: PATIENT NOT FASTINGPERFORMED BY: [place] 5703370 [facility] [id number] BY: [address] [id number] Information: [id number],D81162 (87963) Immature Grans (Abs) 0.0 {x10E3/uL} (Normal) Range: [...] Indication: Non-smoker Planned Observations URINALYSIS, W/ MICRO (07796)Indication: Elevated BP without diagnosis of hypertension On: 8-Mgf-823167:52 Request METABOLIC PANEL, COMPREHENSIVE (15642)Indication: Elevated BP without diagnosis of hypertension On: 5-Mwh-576851:52 Request CBC W/AUTO DIFF WBC (88871)Indication: Elevated BP without diagnosis of hypertension On: 4-Uxk-285065:52 Request OVA & PARASITE DIR SMEAR (39315)Indication: DIARRHEA (Renamed from D (diarrhea)) On: 21-Gwa-521468:41 Request OCCULT BLOOD FECES SCREEN (19437)Indication: DIARRHEA (Renamed from D (diarrhea)) On: 55-Nzv-320804:41 Request LEUKOCYTE COUNT, FECAL (42976)Indication: DIARRHEA (Renamed from D (diarrhea)) On: 72-Nsj-982649:41 Request C-DIFFICILE, STOOL (49984)Indication: DIARRHEA (Renamed from D (diarrhea)) On: 94-Lhg-009550:41 Request SHANNAN CULTURE-STOOL (08841)Indication: DIARRHEA (Renamed from D (diarrhea)) On: 44-Zyn-565549:41 Request FECAL OCCULT- Tubes sent home (91584)Indication: ANEMIA, UNSPECIFIED On: 47-Olp-951933:40 Request IRON (58581)Indication: ANEMIA, UNSPECIFIED On: 16-Lli-757956:40 Request Planned Encounters Medical; 3 Week FU - On: 11-May-2018 9:30 [facility] Billie Laurent DO, DO, Kathleen Planned Procedures ELECTROCARDIOGRAM, COMPLETE (ECG) On: 20-Apr-2018 Intent (38853)By: Aimee Rivera Comments: nsr no avute chg ELECTROCARDIOGRAM, COMPLETE (ECG) On: 30-Sep-2017 Intent (53848)By: Billie Laurent DO Comments: nsr poor R wave progression no acute chg Billie HUSSEIN Radiology - Chest- PA and LatBy: On: 24-Sep-2017 Intent Billie Laurent DO, DO, Comments: follow on abnormality 08/31 Billie Solu- Medrol Injection, 125mg On: 27-Aug-2017 Intent (J2930)By: Billie Laurent DO Comments: [id number] vialMLONG , Billie Aerosol Treatment (24522)By: Mehran On: 27-Aug-2017 Billie Adkins DO, DO, Kathleen Comments: less velcro noise more a/e less reactive cough Solu -Medrol Injection, 125 mg On: 25-Aug-2017 Intent (J2930)By: Billie Laurent DO Comments: solumedrol 125mg injectionlot: [id number]: 12/2019R GMpt tolerated wellAD SILK SCREEN PRINTING RACKER DO, Billie Rocephin Injection, 2 Gram (J0696)By: On: 25-Aug-2017 Billie Patel DO, DO, Comments: rochephin 2gm injection diluted in 4.2cc of 2% lidocainelot: [id number]: 05/2019L and R GM, 1gm in bothpt tolerated wellAD SILK SCREEN PRINTING RACKER Billie Aerosol Treatment (74492)By: Mehran On: 25-Aug-2017 Billie Adkins DO, DO, Kathleen Comments: more a;e-- left side clearly rhonhci and exp wheeeze other side that was quiet now more a/e -- is wheezy in RLL too Radiology - Chest- PA and LatBy: On: 25-Aug-2017 Intent Billie Laurent DO, DO Billie Aerosol Treatment (46586)By: Rose On: 19-Aug-2017 Intent Leslee LOZADA Spirometry (14972)By: Leslee Rose CNP On: 19-Aug-2017 Intent Christo Comments: mild restriction ELECTROCARDIOGRAM, COMPLETE (ECG) On: 28-Sep-2015 Intent (84586)By: Ivelisse PALAFOX, Fermin Radiology - Foot - [...]
== END ==
PROVIDERS: Family Provider Internal Medicine; PCP Internal Medicine; Referring Provider Internal Medicine; Visit Provider Internal Medicine
DX: Z12.31 Encounter for screening mammogram for malignant neoplasm of breast (principal)
CPT/HCPCS: 77062; 77063; 77067; G0279

== ENCOUNTER → 2019-11-17 10:44 | Outpatient (CLI) | payer BC, SELFPAY ==
--- NOTE | 2019-11-17 10:47 | BI_ITS ---
MAMMOGRAPHY - BILATERAL SCREENING REASON FOR EXAM: Female, 59 years old. Routine annual screening examination. PERTINENT HISTORY: Grandmother with breast cancer. TECHNIQUE: Digital bilateral breast ammy (3D mammographic acquisition) in the CC and MLO projections. 2-D mediolateral oblique (MLO) and craniocaudad (CC) views of both breasts were obtained. CAD: Full Field Digital Mammography with Computer Added Detection was performed. COMPARISON: Comparison is made with prior examination dated August 03, 2018 and February 16, 2016. FINDINGS: Breast Composition: There are scattered areas of fibroglandular density. There are no dominant masses or suspicious calcifications. Stable benign-appearing bilateral axillary lymph nodes. No other significant abnormalities are identified. There has been no significant change since the prior study. BI/SCREEN MAMM (CAD) W/AMMY BILAT IMPRESSION: Stable bilateral screening mammogram. Yearly follow-up mammogram recommended. (A) ASSESSMENT CATEGORY: BIRADS Category 2: Benign. A letter regarding these results will be sent to the patient by the facility within 30 days. Approximately 10% of breast cancers are not detected by mammography. A normal mammogram should not delay biopsy of a clinically suspicious abnormality. [id number] Electronically Signed: Tato Knox, at 12:33 EDT , Service support ,
== END ==
PROVIDERS: PCP Internal Medicine; Referring Provider Internal Medicine; Visit Provider Internal Medicine
DX: Z12.31 Encounter for screening mammogram for malignant neoplasm of breast (principal)
CPT/HCPCS: 77063; 77067

== ENCOUNTER → 2019-11-25 09:30 | Outpatient (CLI) | payer BC, SELFPAY ==
[2019-11-25 09:36] VITALS: BP 166/76; PULSE 90; RESP 16; TEMP 36.6; O2SAT 99; BMI 40.2
[2019-11-25] MEDS: 0.9% NaCl IVPB Med Flush (250 mL) 15 ML IV (09:48)
[2019-11-25] MEDS: 0.9% NaCl Peripheral Flush Adult/Peds IV (09:48)
== END ==
PROVIDERS: PCP Internal Medicine; Referring Provider Internal Medicine; Visit Provider Internal Medicine
DX: D64.9 Anemia, unspecified (principal)
CPT/HCPCS: 96365; 96366; J1756; J7050; A4216

== ENCOUNTER → 2019-12-02 09:39 | Outpatient (CLI) | payer BC, SELFPAY ==
[2019-11-25 09:36] VITALS: BMI 40.2
[2019-12-02 09:45] VITALS: BP 152/107; PULSE 93; RESP 18; TEMP 36.2; O2SAT 97; BMI 40.2
[2019-12-02] MEDS: 0.9% NaCl Peripheral Flush Adult/Peds IV (10:10)
[2019-12-02 11:55] VITALS: BP 145/71; PULSE 84; RESP 16; O2SAT 98
== END ==
PROVIDERS: PCP Internal Medicine; Referring Provider Internal Medicine; Visit Provider Internal Medicine
DX: D64.9 Anemia, unspecified (principal)
CPT/HCPCS: 96365; 96366; J1756; J7050; A4216

== ENCOUNTER → 2019-12-09 09:28 | Outpatient (CLI) | payer BC, SELFPAY ==
[2019-12-02 09:45] VITALS: BMI 40.2
[2019-12-09 09:58] VITALS: BP 146/83; PULSE 76; RESP 16; TEMP 36.7; O2SAT 97; BMI 40.2
[2019-12-09] MEDS: 0.9% NaCl IVPB Med Flush (250 mL) 15 ML IV (10:03)
[2019-12-09 11:53] VITALS: BP 126/75
== END ==
PROVIDERS: PCP Internal Medicine; Referring Provider Internal Medicine; Visit Provider Internal Medicine
DX: D64.9 Anemia, unspecified (principal)
CPT/HCPCS: 96365; 96366; J1756; J7050

== ENCOUNTER → 2020-11-30 10:47 | Outpatient (CLI) | payer BC, SELFPAY ==
[2019-12-09 09:58] VITALS: BMI 40.2
--- NOTE | 2020-11-30 10:49 | BI_ITS ---
MAMMOGRAPHY - BILATERAL SCREENING 3-D TOMOSYNTHESIS REASON FOR EXAM: Female, 60 years old. Routine screening PERTINENT HISTORY: Grandmother with breast cancer.. TECHNIQUE: 2-D mammograms and 3-D Tomosynthesis of the breast (s) were performed. CAD was performed. COMPARISON: 11/17/2019 FINDINGS: The breast composition is composed of scattered fibroglandular density. Scattered benign calcifications are seen. No dense spiculated masses or suspicious microcalcifications are identified. No architectural distortion is identified. There is no skin thickening or retraction. There has been no significant change since the prior study. BI/SCRN MAMM (CAD)W/AMMY BILAT IMPRESSION: No mammographic signs of malignancy. Routine yearly mammograms recommended. ASSESSMENT CATEGORY: BIRADS Category 1: Negative. A letter regarding these results will be sent to the patient by the facility within 30 days. FOLLOW UP RECOMMENDATION: Yearly follow up mammogram recommended. (A) Approximately 10% of breast cancers are not detected by mammography. A normal mammogram should not delay biopsy of a clinically suspicious abnormality. Electronically Signed: Raheem Mabry MD at 11:28 EDT , Service support ,
== END ==
PROVIDERS: PCP Internal Medicine; Referring Provider Internal Medicine; Visit Provider Internal Medicine
DX: Z12.31 Encounter for screening mammogram for malignant neoplasm of breast (principal)
CPT/HCPCS: 77063; 77067

== ENCOUNTER 2021-01-01 22:38 | Emergency (ER) | payer BC, SELFPAY ==
[2019-12-09 09:58] VITALS: BMI 40.2
[2021-01-01 22:39] VITALS: BP 142/84; PULSE 82; RESP 16; TEMP 35.9; O2SAT 97; BMI 39.3
--- NOTE | 2021-01-01 22:54 | EKG12_ITS ---
Test Reason : CP Blood Pressure : / mmHG Vent. Rate : 075 BPM Atrial Rate : 075 BPM P-R Int : 186 ms QRS Dur : 082 ms QT Int : 400 ms P-R-T Axes : 068 041 040 degrees QTc Int : 446 ms Normal sinus rhythm Possible Left atrial enlargement Borderline ECG Confirmed by IGNACIA PALAFOX, VASU ([id number]), photo editor MICHELL KUNZ ([id number]) on 01/03/2021 9:27:13 AM Referred By: DC Confirmed By:VASU BETH MD
--- NOTE | 2021-01-01 22:59 | ED.RN ---
NO OLD EKGS IN MUSE
[2021-01-01 23:09] LABS: Absolute Lymphocyte Count 0.86 X10^3/uL (0.83-4.51); Basophil# 0.02 X10^3/uL; Basophil% 0.2 % (0-1); Eosinophil# 0.04 X10^3/uL; Eosinophils% 0.3 % (0-5); Hematocrit 39.8 % (37-47); Hemoglobin 12.5 g/dL (12.0-15.0); Lymphocyte # 0.86 X10^3/ul (0.83-4.51); Lymphocyte % 6.8 % (19-41); Mean Corp Hgb Conc 31.4 g/dL (32-36); Mean Corpuscular Hgb 25.6 pg (27.0-32.0); Mean Corpuscular Volume 81.4 fL (81-99); Mean Platelet Vol. 10.3 fl (6.2-12.0); Monocyte# 0.63 X10^3/uL; NRBC Flagged by Analyzer 0 % (0-5); Neutrophil # 10.97 X10^3/uL (2.7-7.7); Neutrophil % 87.4 % (47-70); Platelet Count 334 K/mm3 (150-450); RBC Distribution Width CV 15.9 % (11.6-14.6); RBC Distribution Width SD 47.4 fl (35.1-43.9); Red Blood Count 4.89 M/mm3 (4.2-5.4); White Blood Count 12.6 K/mm3 (4.4-11.0)
--- NOTE | 2021-01-01 23:12 | RAD_ITS ---
STUDY: X-RAY CHEST REASON FOR EXAM: Female, 60 years old. chest pain TECHNIQUE: Single AP portable view of the chest. COMPARISON: 09/24/2017 FINDINGS: The lungs are clear and expanded. There is no demonstrated pleural abnormality. Normal size heart. Normal mediastinum and keshia. Normal visualized pulmonary arteries. Normal visualized aortic arch and descending thoracic aorta. Normal visualized thoracic spine. Normal visualized ribs, clavicles, and shoulders. There is no demonstrated abnormality of the visualized soft tissue structures of the upper abdomen. RAD/Chest 1 View (Portable) IMPRESSION: Normal x-ray examination of the chest. Electronically Signed: Regan Delarosa DO at 23:46 EDT Tel , Service support ,
[2021-01-01 23:22] LABS: Anion Gap 7 (5-15); BUN 14 mg/dL (7-18); BUN/Creat Ratio 18.1 RATIO (10-20); Calcium,Total 8.8 mg/dL (8.5-10.1); Chloride 106 mmol/L (98-107); Creatinine, Serum 0.77 mg/dL (0.55-1.02); EST Glomerular Filtration Rate 81 mL/min (>60); Est Glom Filt Rate - Afr Amer 99 mL/min (>60); Estimated Creatinine Clearance 62.99 ml/min; Glucose 132 mg/dL (74-106); Sodium Level 141 mmol/L (136-145)
[2021-01-01 23:24] LABS: AST(SGOT) 296 U/L (15-37); Alanine Aminotransfer ALT/SGPT 152 U/L (13-56); Albumin, Serum 3.4 g/dL (3.2-5.0); Alkaline Phosphatase 126 U/L (45-117); Bilirubin, Direct 0.27 mg/dL (0.00-0.30); Lipase 143 U/L (73-393); Protein, Total 7.4 g/dL (6.4-8.2)
--- NOTE | 2021-01-01 23:30 | CT_ITS ---
STUDY: CT ABDOMEN AND PELVIS WITH CONTRAST REASON FOR EXAM: Female, 60 years old. hepatitis, pain RADIATION DOSAGE (If Supplied By Facility): CTDIvol = ( 22.25 ) mGy, DLP = ( 2249.47 ) mGycm TECHNIQUE: Transaxial images were obtained from the dome of the diaphragm to the symphysis pubis without oral contrast. IV 100mL Isovue-370 was administered. Sagittal and coronal images were reconstructed. Individualized dose optimization techniques were used for this CT. COMPARISON: None. FINDINGS: The visualized lung bases are unremarkable. The visualized portions of the heart are within normal limits. Normal liver. There are surgical clips in the gallbladder fossa consistent with a prior cholecystectomy. Normal spleen. Normal pancreas. Normal bilateral adrenal glands. Normal right kidney. Normal left kidney. Bilateral extrarenal pelvis. Moderately sized hiatal hernia, otherwise unremarkable stomach. Normal small intestine. There are multiple colonic diverticula consistent with diverticulosis. The appendix is visualized and appears normal. Normal abdominal aorta. Normal inferior vena cava. Normal retroperitoneum. Normal urinary bladder. Normal visualized uterus. Normal abdominal wall. Normal osseous structures. CT/Abdomen/Pelvis W IV Cont ONLY IMPRESSION: No acute findings. Chronic diverticulosis without acute diverticulitis. Moderately sized hiatal hernia. Electronically Signed: Regan Delarosa DO at 0:41 EDT Tel , Service support ,
[2021-01-02 00:04] VITALS: BP 146/77; PULSE 80; RESP 16; O2SAT 98
--- NOTE | 2021-01-02 00:17 | EDS_ITS ---
HPI History of Present Illness Chief Complaint: Chest Pain Informant: patient Onset/Context/Timing Onset: Yesterday Location: Epigastric and upper abdomen Maximum Severity: Severe Worsened by: Nothing Relieved by: Nothing Associated Symptoms Associated Symptoms: Diaphoresis Narrative Narrative: Patient has upper abdominal pain and epigastric pain. She had 2 episodes yesterday and then 2 today. She said it felt somewhat similar to when she had her gallbladder attack. Her gallbladder was removed. She denies any exertional component. She did get a little bit diaphoretic with the pain but had no other associated symptoms. No fever or jaundice. No history of heart disease, aortic disease, venous thromboembolism, trauma, or recent illness or infection. Prior similar symptoms: Yes (Biliary colic) Recent Illness/Hospitalization: No PFSH PFSH Medical History Cholecystectomy planned Hypertension Meniscal injury Trigeminal neuralgia Home Medications omeprazole 20 mg PO QWEEK 01/06/17 [History Last Taken Unknown] lisinopril 10 mg PO DAILY 01/01/21 [History Last Taken Unknown] Allergy/AdvReac Type Severity Reaction Status Date / Time amoxicillin trihydrate Allergy Vomiting Verified 12/09/19 10:05 [From Augmentin] azithromycin Allergy Vomiting Verified 12/09/19 10:05 [From Zithromax Z-Jesus] carbamazepine [From Tegretol] Allergy Hives Verified 12/09/19 10:05 potassium clavulanate Allergy Vomiting Verified 12/09/19 10:05 [From Augmentin] Social History Smoking Status: Never smoker ROS ROS ED Constitutional Constitutional ED: Denies chills or fever(s) Eyes Eyes: Denies change in vision ENT ENT ED: Denies ear pain Cardiovascular Cardiovascular: Reports chest pain Respiratory/Chest Respiratory/Chest: Denies cough or dyspnea Gastrointestinal Gastrointestinal: Reports abdominal pain; Denies diarrhea or vomiting Genitourinary Genitourinary ED: Denies dysuria Musculoskeletal Musculoskeletal: Denies back pain or myalgias Integumentary Denies rash Neurologic Neurologic: Denies headache(s) or weakness Psychiatric Psychiatric: Denies depression Endocrine Endocrinology: Denies polyuria Allergic/Immunologic Allergic/Immunologic ED: Denies urticaria EXAM Physical Exam Const Vital Signs: 01/01/21 22:39 01/01/21 22:52 01/01/21 22:57 Temperature 96.7 F L Temperature Source Temporal Pulse Rate 82 Respiratory Rate 16 Respiratory Effort Normal Non-Labored Blood Pressure 142/84 H Blood Pressure Mean 103 Pulse Ox 97 Oxygen Delivery Method Room Air Room Air 01/02/21 00:04 Temperature Temperature Source Pulse Rate 80 Respiratory Rate 16 Respiratory Effort Blood Pressure 146/77 H Blood Pressure Mean 100 Pulse Ox 98 Oxygen Delivery Method Room Air Positive well nourished and well developed General Appearance ED: well developed HEENT Negative for trauma or tenderness Eyes EOMs intact bilaterally Neck supple Resp normal respiratory effort and clear to auscultation bilaterally Cardio regular rate and regular rhythm GI Palpation: tender Extremity normal to inspection General Extremety ED: Negative for edema or tenderness General Extremity: Negative for edema Neuro oriented x3 Sensorium / Orientation: alert Psych mental status grossly normal Skin no rashes or lesions noted General Skin Exam: Negative for jaundice MDM MDM MDM Narrative Medical decision making narrative: Patient was triaged for chest pain. Her initial EKG which was interpreted by me showed sinus rhythm at a rate of 75 with no sign of ischemia or infarction pattern. She was placed on the monitor. When I spoke with her, her pain was more in the epigastric area, and the upper abdomen bilaterally. It was similar to her prior biliary colic. She does not have a cardiac history. She does not have an exertional component. Her chest x-ray was unremarkable and troponin was negative. Her other lab work showed a leukocytosis of 12.6. She typically has a leukocytosis and is not sure why. She did not meet any other SIRS criteria. Her lipase was normal. Her liver enzymes were elevated, but her bilirubin was n ormal. Ultrasound was not available at this time of day. I added on a CT abdomen. This showed a normal liver with postoperative gallbladder changes. Patient was advised that she has elevated liver enzymes and this can cause upper abdominal pain. I also felt this was unlikely to be angina or ACS, and the patient agreed. No sign of pneumonia or respiratory pathology. No trauma. No history of aortic disease and nothing to suggest PE. Patient has no risk factors for viral hepatitis. She does not use Tylenol or alcohol. I am not sure why her liver enzymes are elevated. We will send a hepatitis panel. At this time, she is not requesting pain medicine. She is not vomiting. She is not febrile or jaundiced. I believe she is appropriate for outpatient follow- up. She should call her doctor in the morning to schedule further outpatient follow-up. Patient was advised to return for worsening pain, fever, jaundice, nausea, vomiting, or any other new or worsening symptoms. No alcohol or Tylenol. Patient agreed with the plan. Lab Data Attestation: I reviewed the patient's lab results. Labs: Laboratory Results - last 24 hr 01/01/21 01/01/21 01/01/21 22:50 22:50 22:58 WBC 12.6 H RBC 4.89 Hgb 12.5 Hct 39.8 MCV 81.4 MCH 25.6 L MCHC 31.4 L RDW Std Deviation 47.4 H RDW Coeff of Ruiz 15.9 H Plt Count 334 MPV 10.3 Immature Gran % (Auto) 0.300 Neut % (Auto) 87.4 H Lymph % (Auto) 6.8 L [place] % (Auto) 5.0 Eos % (Auto) 0.3 Baso % (Auto) 0.2 Absolute Neuts (auto) 11.0 H Absolute Lymphs (auto) 0.86 Nucleated RBC % 0 Sodium 141 Potassium 4.0 Chloride 106 Carbon Dioxide 28.0 Anion Gap 7 BUN 14 Creatinine 0.77 Estim Creat Clear Calc 62.99 Est GFR (MDRD) Af Amer 99 Est GFR (MDRD) Non-Af 81 BUN/Creatinine Ratio 18.1 Glucose 132 H Calcium 8.8 Total Bilirubin 0.70 Direct Bilirubin 0.27 AST 296 H ALT 152 H Alkaline Phosphatase 126 H Troponin I < 0.015 Total Protein 7.4 Albumin 3.4 Globulin 4.0 Lipase 143 Radiography Chest X-Ray - ED: 1 View, Read by ED Physician and Normal Diagnostic Testing: Radiology Impression Chest X-Ray 01/01/21 23:12 IMPRESSION: Normal x-ray examination of the chest. Electronically Signed: Regan Delarosa DO at 23:46 EDT Tel , Service support , Abdomen/Pelvis CT 01/01/21 23:30 IMPRESSION: No acute findings. Chronic diverticulosis without acute diverticulitis. Moderately sized hiatal hernia. Electronically Signed: Regan Delarosa DO at 0:41 EDT Tel , Service support , Discharge Plan Triage Chief Complaint: Chest Pain ED Provider: Simone Garcia Dx/Rx/DC Orders Clinical Impression: Hepatitis Instructions: ED Hepatitis Cause Unknown Test ... Prescriptions: No Action omeprazole 20 MG capsule,delayed release(DR/EC) 20 mg PO QWEEK RF: 0 lisinopril 10 mg tablet 10 mg PO DAILY RF: 0 Primary Care Provider: Billie Laurent Referrals: Billie Laurent DO [Primary Care Provider] - Activity Restrictions/Additional Instructions: call your doctor in the morning for follow up. return to ER for new or worsening issues, do not take tylenol or alcohol Disposition Disposition: Home, self care
[2021-01-02 01:00] VITALS: BP 153/86; PULSE 59; RESP 18; O2SAT 96
[2021-01-02 01:40] VITALS: BP 154/70; PULSE 60; RESP 15; O2SAT 99
[2021-01-03 05:07] LABS: HEPATITIS B SURFACE AG Negative (Negative); Hepatitis A IgM Antibody Negative (Negative); Hepatitis B Core AB IgM Negative (Negative)
[2021-01-03 11:47] LABS: Hep C Antibodies 0.1 s/co ratio (0.0-0.9)
== END 2021-01-02 01:41 | disposition home or self-care (01) ==
PROVIDERS: Emergency Provider Emergency Medicine; PCP Internal Medicine
DX: K75.9 Inflammatory liver disease, unspecified (principal); I10 Essential (primary) hypertension; G50.0 Trigeminal neuralgia; Z79.899 Other long term (current) drug therapy
CPT/HCPCS: 71045; 74177; 80048; 80074; 80076; 83690; 84484; 85025; 93005; 99284; Q9967; A4216

== ENCOUNTER → 2021-01-11 15:17 | Outpatient (CLI) | payer BC, SELFPAY ==
[2021-01-01 22:39] VITALS: BMI 39.3
[2021-01-11 17:47] LABS: Absolute Lymphocyte Count 1.65 X10^3/uL (0.83-4.51); Absolute Neutrophil Count 6.9 X10^3/uL (2.0-7.7); Basophil# 0.05 X10^3/uL; Basophil% 0.5 % (0-1); Eosinophil# 0.17 X10^3/uL; Eosinophils% 1.8 % (0-5); Hematocrit 37.7 % (37-47); Hemoglobin 11.8 g/dL (12.0-15.0); Lymphocyte # 1.65 X10^3/ul (0.83-4.51); Lymphocyte % 17.7 % (19-41); Mean Corp Hgb Conc 31.3 g/dL (32-36); Mean Corpuscular Hgb 25.7 pg (27.0-32.0); Mean Platelet Vol. 11.1 fl (6.2-12.0); Monocyte% 6.4 % (0-10); NRBC Flagged by Analyzer 0 % (0-5); Neutrophil # 6.85 X10^3/uL (2.7-7.7); Neutrophil % 73.4 % (47-70); Platelet Count 313 K/mm3 (150-450); RBC Distribution Width CV 16.3 % (11.6-14.6); RBC Distribution Width SD 48.2 fl (35.1-43.9); White Blood Count 9.3 K/mm3 (4.4-11.0)
[2021-01-11 18:29] LABS: AST(SGOT) 14 U/L (15-37); Alanine Aminotransfer ALT/SGPT 26 U/L (13-56); Albumin, Serum 3.5 g/dL (3.2-5.0); Alkaline Phosphatase 93 U/L (45-117); Bilirubin, Direct 0.15 mg/dL (0.00-0.30); Ferritin 8 ng/mL (8-252); GGTP 60 U/L (5-55); Globulin 3.4 g/dL (2.2-4.2); Iron 33 ug/dL (50-170); Iron Binding Capacity,Total 359 ug/dL (250-450); PERCENT IRON SATURATION 9.2 % (15.0-55.0); Protein, Total 6.9 g/dL (6.4-8.2)
[2021-01-14 07:48] LABS: Anti-Smooth Muscle ABS 11 Units (0-19)
[2021-01-14 07:49] LABS: CMV Acute Antibody IgM < 30.0 AU/mL (0.0-29.9); Transferrin 273 mg/dL (192-364)
[2021-01-14 07:50] LABS: ANTINUCLEAR ANTIBODIES DIRECT Negative (Negative); Anti-Mitochondrial AB <20.0 Units (0.0-20.0)
== END ==
PROVIDERS: PCP Internal Medicine; Referring Provider Internal Medicine; Visit Provider Internal Medicine
DX: R74.8 Abnormal levels of other serum enzymes (principal); D72.829 Elevated white blood cell count, unspecified; E61.1 Iron deficiency
CPT/HCPCS: 36415; 80076; 82390; 82728; 82977; 83516; 83540; 83550; 84466; 85025; 86038; 86645

== ENCOUNTER 2021-07-31 17:59 | Outpatient (CLI) | payer BC, SELFPAY ==
[2021-07-31 18:19] VITALS: BP 141/89; PULSE 82; RESP 16; TEMP 36.7; O2SAT 98; BMI 40.0
[2021-07-31] MEDS: 0.9% Saline Lock 10 ML Syringe IV (18:38)
[2021-07-31 19:10] VITALS: BP 145/102; PULSE 71; RESP 16; TEMP 36.7; O2SAT 95
[2021-07-31 19:59] VITALS: BP 150/98; PULSE 71; RESP 16; TEMP 36.6; O2SAT 99
== END 2021-07-31 23:59 | disposition home or self-care (01) ==
LOC: MS3OUT 18:00 → MS3 18:23
PROVIDERS: PCP Internal Medicine; Referring Provider Nurse Practitioner Acute Care; Visit Provider Nurse Practitioner Acute Care
DX: Z23 Encounter for immunization (principal); U07.1 COVID-19
CPT/HCPCS: J7050; M0245; Q0245; A4216

== ENCOUNTER → 2022-04-18 | Outpatient (CLI) | payer BC, SELFPAY ==
--- NOTE | 2022-04-18 16:35 | BI_ITS ---
MAMMOGRAPHY - BILATERAL SCREENING REASON FOR EXAM: Female, 61 years old. Routine annual screening examination. PERTINENT HISTORY: Grandmother with breast cancer. Aunt with breast cancer. TECHNIQUE: Digital bilateral breast ammy (3D mammographic acquisition) in the CC and MLO projections. 2-D mediolateral oblique (MLO) and craniocaudad (CC) views of both breasts were obtained. CAD: Full Field Digital Mammography with Computer Added Detection was performed. COMPARISON: Comparison is made with prior examination dated 11/30/2020 and 11/17/2019. FINDINGS: Breast Composition: There are scattered areas of fibroglandular density. There are no dominant masses or suspicious calcifications. No other significant abnormalities are identified. There has been no significant change since the prior study. BI/SCRN MAMM (CAD)W/AMMY BILAT IMPRESSION: Stable bilateral screening mammogram. Yearly follow-up mammogram recommended. (A) ASSESSMENT CATEGORY: BIRADS Category 1: Negative. A letter regarding these results will be sent to the patient by the facility within 30 days. Approximately 10% of breast cancers are not detected by mammography. A normal mammogram should not delay biopsy of a clinically suspicious abnormality. [id number] Electronically Signed: Tato Knox MD at 8:25 EDT ,
== END | disposition home or self-care (01) ==
LOC: OPBI 04-19 07:15
PROVIDERS: PCP Internal Medicine; Visit Provider Internal Medicine
DX: Z12.31 Encounter for screening mammogram for malignant neoplasm of breast (principal); Z80.3 Family history of malignant neoplasm of breast
CPT/HCPCS: 77063; 77067

== ENCOUNTER 2022-05-25 20:46 | Emergency (ER) | payer BC, SELFPAY ==
[2022-05-25 20:48] VITALS: BP 163/102; PULSE 97; RESP 18; TEMP 36.6; O2SAT 99; BMI 40.6
--- NOTE | 2022-05-25 21:22 | CT_ITS ---
EXAM: CT CERVICAL SPINE WITHOUT INTRAVENOUS CONTRAST CLINICAL INDICATION: Trauma TECHNIQUE: Helically acquired images were obtained of the cervical spine without intravenous contrast. 2D reformatted images were reviewed. This CT exam was performed using one or more of the following dose reduction techniques: automated exposure control, adjustment of the mA and/or kV according to patient size, and/or use of iterative reconstruction technique. This report was created using [employer] report generation technology. RADIATION DOSE: CTDIvol = 29.19 mGy, DLP = 577.67 mGy-cm. COMPARISON: None. FINDINGS: VERTEBRAE: Straightening of the usual lordotic curvature. Mild anterior spondylosis at C6-7: Normal disc height. Minimal hypertrophic changes at multiple superior cervical facet joints. No traumatic subluxation. No discrete lytic or blastic abnormality. Normal craniocervical junction and cervicothoracic junction. DISCS/SPINAL CANAL/NEURAL FORAMINA: Unremarkable. Disc heights are preserved. No critical stenosis. SOFT TISSUES: Unremarkable. No prevertebral soft tissue swelling. LYMPH NODES: Unremarkable. No cervical adenopathy. LUNG APICES: Unremarkable as visualized. Clear. CT/Spine Cervical without Contras IMPRESSION: No acute findings in the cervical spine. Minimal degenerative changes. Electronically Signed: Rosemary Jimenes MD at 23:03 EST ,
--- NOTE | 2022-05-25 21:22 | CT_ITS ---
EXAM: CT MAXILLOFACIAL WITHOUT INTRAVENOUS CONTRAST CLINICAL INDICATION: Trauma TECHNIQUE: Helically acquired images were obtained of the face without intravenous contrast. This CT exam was performed using one or more of the following dose reduction techniques: automated exposure control, adjustment of the mA and/or kV according to patient size, and/or use of iterative reconstruction technique. This report was created using [employer] report generation technology. RADIATION DOSE: CTDIvol = 29.38 mGy, DLP = 547.46 mGy-cm. COMPARISON: None. FINDINGS: BONES/JOINTS: No underlying left maxillary sinus, zygomatic arch or orbital fracture. No discrete lytic or blastic abnormalities. SOFT TISSUES: Mild left cheek soft tissue contusion with soft tissue stranding and swelling and small band of central increased soft tissue density. No discrete fluid collections. ORBITS: Unremarkable. Both globes are unremarkable. Extraocular muscles are normal. Retrobulbar fat appears unremarkable. SINUSES: Mucous retention cyst filling most of the left maxillary sinus, slight mucosal thickening in the floor the right maxillary sinus, and slight mucosal thickening in the floors of the sphenoid sinuses. MASTOID AIR CELLS: Unremarkable as visualized. Clear. DENTAL: No acute findings. No periodontal osseous erosion. CT/Sinus/Facial Bone IMPRESSION: 1. Left cheek contusion. No fractures. 2. Mild chronic sinusitis. Electronically Signed: Rosemary Jimenes MD at 22:59 EST ,
--- NOTE | 2022-05-25 21:22 | CT_ITS ---
EXAM: CT HEAD WITHOUT INTRAVENOUS CONTRAST CLINICAL INDICATION: Trauma TECHNIQUE: Multiple axial images were obtained of the head without intravenous contrast. This CT exam was performed using one or more of the following dose reduction techniques: automated exposure control, adjustment of the mA and/or kV according to patient size, and/or use of iterative reconstruction technique. This report was created using [employer] report generation technology. RADIATION DOSE: CTDIvol = 44.99 mGy, DLP = 812.98 mGy-cm. COMPARISON: None. FINDINGS: BRAIN AND EXTRA-AXIAL SPACES: Cerebral volume loss, prominent CSF spaces over the frontoparietal convexities. No intra- or extra-axial hemorrhage. No evidence of acute infarct. No intracranial mass or mass effect. There is preservation of the petty/white matter interface. Posterior fossa structures are unremarkable. Basal cisterns are patent. BONES/JOINTS: No underlying left maxillary sinus or orbit fracture or intraorbital injury. No discrete lytic or blastic abnormalities. Postoperative changes of stabilization plate bridging the right temporal-occipital suture. SOFT TISSUES: Mild left cheek contusion, mild soft tissue stranding and swelling. SINUSES: Large mucous retention cyst in the left maxillary sinus and slight mucosal thickening in the floors of the sphenoid sinuses. MASTOID AIR CELLS: Unremarkable. Clear. ORBITS: Visualized globes, extraocular muscles, optic nerves and retrobulbar fat appear unremarkable. OTHER FINDINGS: Prominent empty sella. CT/Brain/Head without Contrast IMPRESSION: No acute findings in the head/brain. Mild left cheek contusion. Volume loss. Empty sella. Postoperative changes of right calvarium. Electronically Signed: Rosemary Jimenes MD at 22:54 EST ,
[2022-05-25] MEDS: oxyCODONE 5 MG Tablet PO (21:38)
--- NOTE | 2022-05-25 22:05 | RAD_ITS ---
EXAM: XR RIGHT WRIST COMPLETE, 3 OR MORE VIEWS CLINICAL INDICATION: Trauma TECHNIQUE: Frontal, lateral and oblique views of the right wrist. This report was created using [employer] report generation technology. COMPARISON: 1 r FINDINGS: BONES/JOINTS: Unremarkable with the exception of mild degenerative change at the base of the thumb, mild joint space narrowing and minimal osteophytes. Small chronic ovoid ossification adjacent to the tip of the ulnar styloid process. No acute fracture. No subluxation. Normal alignment. Preservation of the joint space. No sclerotic or destructive changes observed. SOFT TISSUES: Unremarkable. No soft tissue swelling or gas. No radiopaque foreign body. RAD/Wrist min 3 Views IMPRESSION: No suspicious acute findings.. Electronically Signed: Rosemary Jimenes MD at 23:09 EST ,
--- NOTE | 2022-05-25 22:05 | RAD_ITS ---
STUDY: X-RAY - UNILATERAL RIBS ( RIGHT ) WITH CHEST REASON FOR EXAM: Female, 62 years old. Trauma TECHNIQUE - RIBS: 4 view(s) of the ribs. TECHNIQUE - CHEST: PA COMPARISON: 01/01/2021 CXR FINDINGS - RIBS: Normal visualized ribs without a demonstrated fracture. FINDINGS - CHEST: The lungs are clear and expanded. There is no demonstrated pleural abnormality. Normal size heart. Normal mediastinum and keshia. Normal visualized pulmonary arteries. Normal visualized aortic arch and descending thoracic aorta. Normal visualized thoracic spine. Normal visualized ribs, clavicles, and shoulders. There is no demonstrated abnormality of the visualized soft tissue structures of the upper abdomen. RAD/Ribs Uni Min 3V w/PA Chest IMPRESSION: RIBS: Normal x-ray examination of the ribs. CHEST: Normal x-ray examination of the chest. Electronically Signed: Thomas Swain MD at 22:48 EST Reading Location ID and State: [facility] / [place] Tel , Service support ,
--- NOTE | 2022-05-25 22:05 | RAD_ITS ---
EXAM: XR RIGHT HAND COMPLETE, 3 OR MORE VIEWS CLINICAL INDICATION: Trauma TECHNIQUE: Frontal, lateral and oblique views of the right hand. This report was created using [employer] report generation technology. COMPARISON: None. FINDINGS: BONES/JOINTS: Unremarkable with the exception of mild degenerative changes at the IP joint of the thumb and mild degenerative change at the scaphoid-trapezium joint on the oblique view. No acute fracture. No subluxation. Normal alignment. Preservation of the joint space. No sclerotic or destructive changes observed. Small well-corticated ossification in the tip of the ulnar styloid process is chronic. SOFT TISSUES: Unremarkable. No soft tissue swelling or gas. No radiopaque foreign body. RAD/Hand Min 3 Views IMPRESSION: Mild degenerative change. No acute abnormality. Electronically Signed: Rosemary Jimenes MD at 23:17 EST ,
--- NOTE | 2022-05-25 22:05 | RAD_ITS ---
EXAM: XR LEFT KNEE COMPLETE, 4 OR MORE VIEWS CLINICAL INDICATION: Trauma TECHNIQUE: Four or more views of the left knee. This report was created using [employer] report generation technology. COMPARISON: None. FINDINGS: BONES/JOINTS: Unremarkable. No acute fracture. No subluxation. Normal alignment. Preservation of the joint space. No sclerotic or destructive changes observed. SOFT TISSUES: Mild periarticular osteophytes at the posterior margin of the patella on the lateral view. Also narrowing of the medial patellofemoral joint and more prominent osteophytes on the sunrise patellar view. No suprapatellar bursal fluid. Mild narrowing of the medial joint compartment with periarticular osteophytes medially and laterally. No soft tissue swelling or gas. RAD/Knee 4 or More Views IMPRESSION: No acute abnormality identified. Multicompartmental mild-moderate DJD. Electronically Signed: Rosemary Jimenes MD at 23:13 EST ,
--- NOTE | 2022-05-25 22:15 | ED.VIS.FALL ---
HPI HPI - Fall History of Present Illness Chief Complaint: Fall Informant: patient and spouse/S.O. Narrative Narrative: Patient presents after a fall from tripping on a curb. She felt fine prior to this. She caught her toe on the curb. She fell forward. She hit her left knee and the left side of her face along with catching her self with her right hand. These are the areas that hurt. She also landed on her chest and has soreness on the right chest although she is not short of breath. Primary area of pain is her right wrist and hand. She did not lose consciousness. This was a mechanical fall not syncope. She is not on any blood thinners. Motion or palpation makes this worse. Rest makes it better. PFSH PFS Medical History Anemia Anxiety Cholecystectomy planned GERD (gastroesophageal reflux disease) Hypertension Meniscal injury Migraines Trigeminal neuralgia Home Medications omeprazole 20 mg capsule,delayed release 20 mg PO QWEEK 01/06/17 [History Last Taken Unknown] lisinopril 10 mg tablet 10 mg PO BID 01/01/21 [History Last Taken Unknown] lorazepam 0.5 mg tablet (Ativan) 0.5 mg PO QHS PRN Anxiety 07/31/21 [History Last Taken Unknown] oxycodone-acetaminophen 5 mg-325 mg tablet (Percocet) 1 tab PO Q6H PRN pain 3 days #10 tabs 05/26/22 [Rx Last Taken Unknown] Allergy/AdvReac Type Severity Reaction Status Date / Time amoxicillin trihydrate Allergy Vomiting Verified 05/25/22 20:47 [From Augmentin] azithromycin Allergy Vomiting Verified 05/25/22 20:47 [From Zithromax Z-Jesus] carbamazepine [From Tegretol] Allergy Hives Verified 05/25/22 20:47 potassium clavulanate Allergy Vomiting Verified 05/25/22 20:47 [From Augmentin] Surgical History History of cholecystectomy Social History Smoking Status: Never smoker ROS ROS ED Constitutional Constitutional ED: Denies chills, fever(s) or subjective Eyes Eyes: Denies blurry vision, change in vision or diplopia ENT ENT ED: Reports other Details: She does have soreness around the left cheek area. When specifically asked she may have a little bit of numbness in that region 2. ; Denies rhinorrhea or sore throat Cardiovascular Cardiovascular: Reports other Details: She has soreness in the right breast area. ; Denies palpitations or racing heartbeat Respiratory/Chest Respiratory/Chest: Denies cough or dyspnea Gastrointestinal Gastrointestinal: Denies abdominal pain, nausea or vomiting Genitourinary Genitourinary ED: Denies hematuria Musculoskeletal Musculoskeletal: Reports neck pain and other Details: She has some soreness on the right side of her neck. She has no back pain. She has soreness in her right hand and left knee as in the history of present illness. ; Denies back pain Integumentary Reports other Details: Slight contusion in the anterior left knee and left cheek. Neurologic Neurologic: Reports headache(s) and other Details: No peripheral paresthesias. But she does have a slight amount of facial anesthesia in the left upper lip when asked. ; Denies paresthesias or weakness Endocrine Endocrinology: Denies polydipsia or polyuria Hematologic/Lymphatic Hematologic/Lymphatic: Denies easy bleeding or easy bruising Allergic/Immunologic Allergic/Immunologic ED: Denies urticaria EXAM Physical Exam Const Vital Signs: 05/25/22 20:48 05/25/22 21:28 Temperature 98 F Temperature Source Temporal Pulse Rate 97 Respiratory Rate 18 Respiratory Effort Normal Respiratory Depth Normal Respiratory Pattern Normal Blood Pressure 163/102 H Blood Pressure Mean 122 Pulse Ox 99 Oxygen Delivery Method Room Air Room Air Positive well nourished and well developed General Appearance ED: well developed HEENT HEENT Narrative: Patient does have some slight contusion to the left anterior cheek. Slight decrease sensation but no real anesthesia. contusion Eyes EOMs intact bilaterally Eyes Narrative: Full range of motion. No diplopia with upward gaze. Neck Neck Narrative: Mild right paraspinal soreness. Chest Wall inspection of chest normal and palpation of chest normal Chest Narrative: I do not feel any subcutaneous air. There is some tenderness to the lower lateral chest wall. Resp normal respiratory effort Auscultation: Negative for rales, rhonchi or wheezes Cardio regular rate and regular rhythm GI non-tender and non-distended Back/Spine no CVA tenderness Thoracic Spine / Upper Back: Negative for thoracic spinal tenderness Lumbar Spine / Lower Back: Negative for lumbar spinal tenderness Extremity Extremity Narrative: Patient has contusion around the right thenar eminence with some tenderness in that area and diffusely in the right wrist. No proximal or distal tenderness. There is slight left patellar tenderness with a very slight contusion. No effusion. No instability. No hip pain with motion or palpation. Neuro oriented x3 Psych mental status grossly normal Skin Skin Narrative: Contusion of left cheek and very slight contusion of left anterior knee. Also a contusion of the right thenar eminence. MDM MDM MDM Narrative Medical decision making narrative: Imaging is showing no acute fractures. We will use ice and pain meds. Online prescribing report shows no prior narcotics. 1 prescription for her Ativan. We discussed reasons to return. Radiography Diagnostic Testing: Clinical Impression(s) from Imaging Studies Brain CT 05/25/22 21:22 IMPRESSION: No acute findings in the head/brain. Mild left cheek contusion. Volume loss. Empty sella. Postoperative changes of right calvarium. Electronically Signed: Rosemary Jimenes MD at 22:54 EST , Cervical Spine CT 05/25/22 21:22 IMPRESSION: No acute findings in the cervical spine. Minimal degenerative changes. Electronically Signed: Rosemary Jimenes MD at 23:03 EST , Facial/Sinus 05/25/22 21:22 IMPRESSION: 1. Left cheek contusion. No fractures. 2. Mild chronic sinusitis. Electronically Signed: Rosemary Jimenes MD at 22:59 EST , Hand X-Ray 05/25/22 22:05 IMPRESSION: Mild degenerative change. No acute abnormality. Electronically Signed: Rosemary Jimenes MD at 23:17 EST , Knee X-Ray 05/25/22 22:05 IMPRESSION: No acute abnormality identified. Multicompartmental mild-moderate DJD. Electronically Signed: Rosemary Jimenes MD at 23:13 EST , Ribs w/Chest X-Ray 05/25/22 22:05 IMPRESSION: RIBS: Normal x-ray examination of the ribs. CHEST: Normal x-ray examination of the chest. Electronically Signed: Thomas Swain MD at 22:48 EST , Wrist X-Ray 05/25/22 22:05 IMPRESSION: No suspicious acute findings.. Electronically Signed: Rosemary Jimenes MD at 23:09 EST , I have looked at the images and they have been read by radiology. X-rays of right wrist, left knee, right ribs and chest x-ray, right hand as well as CT of the face C-spine and brain show no acute process. Discharge Plan Triage Chief Complaint: Fall ED Provider: Alex Syed Dx/Rx/DC Orders Clinical Impression: Fall from slip, trip, or stumble, Contusion of right chest wall, Contusion of hand, right, Contusion of knee, left, Contusion of face Instructions: Bruises (Contusions) Prescriptions: New oxycodone-acetaminophen [Percocet] 5-325 mg tablet 1 tab PO Q6H PRN (Reason: pain) 3 Days Qty: 10 0RF No Action omeprazole 20 MG capsule,delayed release(DR/EC) 20 mg PO QWEEK Label Comments: TAKE EVERY TEN DAYS lisinopril 10 mg tablet 10 mg PO BID lorazepam [Ativan] 0.5 mg Tablet 0.5 mg PO QHS PRN (Reason: Anxiety) Primary Care Provider: Billie Laurent Referrals: Billie Laurent, [Primary Care Provider] - 3-5 Days if not improving Disposition Disposition: Home, Self Care
[2022-05-26] MEDS: oxyCODONE 5 MG Tablet PO (00:59)
[2022-05-26 01:00] VITALS: PULSE 92; RESP 15; O2SAT 98
== END 2022-05-26 01:48 | disposition home or self-care (01) ==
PROVIDERS: Emergency Provider Emergency Medicine; PCP Internal Medicine; Visit Provider Emergency Medicine
DX: S20.20XA Contusion of thorax, unspecified, initial encounter (principal); S60.221A Contusion of right hand, initial encounter; S80.02XA Contusion of left knee, initial encounter; S00.83XA Contusion of other part of head, initial encounter; I10 Essential (primary) hypertension; W01.0XXA Fall on same level from slipping, tripping and stumbling without subsequent striking against object, initial encounter
CPT/HCPCS: 70450; 70486; 71101; 72125; 73110; 73130; 73564; 99282

== ENCOUNTER → 2022-07-11 | Outpatient (CLI) | payer BC, SELFPAY ==
[2022-07-11] VITALS (7 sets, daily range): BP systolic 130–148; BP diastolic 62–96; PULSE 66–86; RESP 14–16; TEMP 36–36.3; O2SAT 96–99; BMI 41.1
[2022-07-11] MEDS: 0.9% NaCl Peripheral Flush Adult/Peds IV (08:40)
[2022-07-11] MEDS: Furosemide 20 MG/2 ML VIAL IV (13:47)
== END | disposition home or self-care (01) ==
PROVIDERS: PCP Internal Medicine; Referring Provider Internal Medicine; Visit Provider Internal Medicine
DX: D64.9 Anemia, unspecified (principal)
CPT/HCPCS: 96372; 36415; 36430; 86850; 86900; 86901; 86920; 86922; J7040; P9016; A4216; J1940

== ENCOUNTER → 2023-05-02 | Outpatient (CLI) | payer BC, SELFPAY ==
--- NOTE | 2023-05-02 08:38 | BI_ITS ---
MAMMOGRAPHY - BILATERAL SCREENING REASON FOR EXAM: Female, 62 years old. Routine annual screening examination. PERTINENT HISTORY: Grandmother with breast cancer. Aunt with breast cancer. TECHNIQUE: Digital bilateral breast ammy (3D mammographic acquisition) in the CC and MLO projections. 2-D mediolateral oblique (MLO) and craniocaudad (CC) views of both breasts were obtained. CAD: Full Field Digital Mammography with Computer Added Detection was performed. COMPARISON: Comparison is made with prior examination dated April 18, 2022 and November 30, 2020. FINDINGS: Breast Composition: There are scattered areas of fibroglandular density. There are no dominant masses or suspicious calcifications. No other significant abnormalities are identified. There has been no significant change since the prior study. BI/SCRN MAMM (CAD)W/AMMY BILAT IMPRESSION: Stable bilateral screening mammogram. Yearly follow-up mammogram recommended. (A) ASSESSMENT CATEGORY: BIRADS Category 1: Negative. A letter regarding these results will be sent to the patient by the facility within 30 days. Approximately 10% of breast cancers are not detected by mammography. A normal mammogram should not delay biopsy of a clinically suspicious abnormality. [id number] Electronically Signed: Tato Knox MD at 10:53 EDT ,
== END | disposition home or self-care (01) ==
LOC: OPBI 08:36
PROVIDERS: PCP Internal Medicine; Referring Provider Internal Medicine; Visit Provider Internal Medicine
DX: Z12.31 Encounter for screening mammogram for malignant neoplasm of breast (principal); Z80.3 Family history of malignant neoplasm of breast
CPT/HCPCS: 77063; 77067

== ENCOUNTER → 2023-10-22 | Outpatient (CLI) | payer BC, SELFPAY | END | disposition home or self-care (01) | LOC: PSN 07:36 | PROVIDERS: PCP Internal Medicine; Referring Provider Internal Medicine; Visit Provider Internal Medicine | DX: R00.2 Palpitations (principal) | CPT/HCPCS: 93225; 93226 ==

== ENCOUNTER → 2024-05-07 | Outpatient (CLI) | payer BC, SELFPAY ==
[2024-05-07 15:05] LABS: Absolute Lymphocyte Count 0.95 X10^3/uL (0.83-4.51); Absolute Neutrophil Count 6.6 X10^3/uL (2.0-7.7); Basophil# 0.03 X10^3/uL; Basophil% 0.4 % (0-1); Eosinophil# 0.03 X10^3/uL; Eosinophils% 0.4 % (0-5); Hematocrit 25.9 % (37-47); Hemoglobin 7.2 g/dL (12.0-15.0); Lymphocyte # 0.95 X10^3/ul (0.83-4.51); Lymphocyte % 11.8 % (19-41); Mean Corp Hgb Conc 27.8 g/dL (32-36); Mean Corpuscular Hgb 19.8 pg (27.0-32.0); Mean Corpuscular Volume 71.2 fL (81-99); Mean Platelet Vol. 10.8 fl (6.2-12.0); Monocyte# 0.46 X10^3/uL; Monocyte% 5.7 % (0-10); NRBC Flagged by Analyzer 0 % (0-5); Neutrophil # 6.57 X10^3/uL (2.7-7.7); Neutrophil % 81.5 % (47-70); Platelet Count 345 K/mm3 (150-450); RBC Distribution Width CV 16.5 % (11.6-14.6); RBC Distribution Width SD 42.5 fl (35.1-43.9); Red Blood Count 3.64 M/mm3 (4.2-5.4); White Blood Count 8.1 K/mm3 (4.4-11.0)
[2024-05-07 15:18] LABS: Erythrocyte Sedimentation Rate 35 mm/hr (0-30)
[2024-05-07 15:20] LABS: Vitamin B12 1064 pg/mL (211-911); Vitamin D,25 Hydroxy 35.4 ng/mL
[2024-05-07 15:35] LABS: ALB/GLOB Ratio 0.9 RATIO (0.9-2.4); AST(SGOT) 11 U/L (15-37); Alanine Aminotransfer ALT/SGPT 19 U/L (13-56); Albumin, Serum 3.5 g/dL (3.2-5.0); Alkaline Phosphatase 78 U/L (45-117); Anion Gap 5 (5-15); BUN 26 mg/dL (7-18); BUN/Creat Ratio 36.3 RATIO (10-20); Chloride 107 mmol/L (98-107); Cholesterol 197 mg/dL (200); Creatinine, Serum 0.72 mg/dL (0.55-1.02); EST Glomerular Filtration Rate 88 mL/min (>60); Est Glom Filt Rate - Afr Amer 106 mL/min (>60); Ferritin 3 ng/mL (8-252); Globulin 3.8 g/dL (2.2-4.2); Glucose 100 mg/dL (74-106); High Density Lipoprotein 81 mg/dL; Iron 10 ug/dL (50-170); Iron Binding Capacity,Total 468 ug/dL (250-450); PERCENT IRON SATURATION 2.1 % (15.0-55.0); Potassium 4.3 mmol/L (3.5-5.1); Protein, Total 7.3 g/dL (6.4-8.2); Sodium Level 137 mmol/L (136-145); Triglycerides 56 mg/dL; Very Low Density Lipoprotein 11 mg/dL (5-40)
== END | disposition home or self-care (01) ==
LOC: MTLAB 11:09
PROVIDERS: PCP Internal Medicine; Referring Provider Internal Medicine; Visit Provider Internal Medicine
DX: E61.1 Iron deficiency (principal); R53.83 Other fatigue; E55.9 Vitamin D deficiency, unspecified; E78.00 Pure hypercholesterolemia, unspecified
CPT/HCPCS: 36415; 80053; 80061; 82306; 82607; 82728; 83540; 83550; 84443; 85025; 85652; 86140

== ENCOUNTER → 2024-06-01 | Outpatient (CLI) | payer BC, SELFPAY ==
--- NOTE | 2024-06-01 13:21 | BI_ITS ---
MAMMOGRAPHY - BILATERAL SCREENING REASON FOR EXAM: Female, 64 years old. Routine annual screening examination. PERTINENT HISTORY: Grandmother with breast cancer. Aunt with breast cancer. TECHNIQUE: Digital bilateral breast ammy (3D mammographic acquisition) in the CC and MLO projections. 2-D mediolateral oblique (MLO) and craniocaudad (CC) views of both breasts were obtained. CAD: Full Field Digital Mammography with Computer Added Detection was performed. COMPARISON: Comparison is made with prior study May 02, 2023 and April 18, 2022. FINDINGS: Breast Composition: There are scattered areas of fibroglandular density. There are no dominant masses or suspicious calcifications. No other significant abnormalities are identified. There has been no significant change since the prior study. BI/SCRN MAMM (CAD)W/AMMY BILAT IMPRESSION: Stable bilateral screening mammogram. Yearly follow-up mammogram recommended. (A) ASSESSMENT CATEGORY: BIRADS Category 1: Negative. A letter regarding these results will be sent to the patient by the facility within 30 days. Approximately 10% of breast cancers are not detected by mammography. A normal mammogram should not delay biopsy of a clinically suspicious abnormality. [id number] Electronically Signed: Tato Knox MD at 14:24 EST ,
--- NOTE | 2024-06-01 13:27 | BD_ITS ---
STUDY: DUAL ENERGY X-RAY ABSORPTIOMETRY / DXA REASON FOR EXAM: Female, 64 years old. [id number] TECHNIQUE: Bone Mineral Density (BMD) measurements of lumbar spine and bilateral hips were obtained. COMPARISON: None. FINDINGS: Lumbar Spine (L1-L4): g/cm2 (0.923) / T-score (-1.1) / Z-score (0.4) Findings are suggestive of osteopenia with a low fracture risk. Left Femur Total: g/cm2 (0.950) / T-score (0.1) / Z-score (1.1) Left Femoral Neck: g/cm2 (0.770) / T-score (-0.7) / Z-score (0.7) Right Femur Total: g/cm2 (0.924) / T-score (-0.1) / Z-score (0.9) Right Femoral Neck: g/cm2 (0.799) / T-score (-0.5) / Z-score (0.9) BD/Dexa Bone Density Study IMPRESSION: The patient is considered osteopenic as outlined below according to World [employer] Organization (WHO) criteria with a low fracture risk. Reference Information: The T-score is the number of standard deviations above or below the standard which is normal for young adults at their peak bone mineral density. The World Health Organization (WHO) interprets the T-scores as follows: Above -1 Normal bone density Between -1 and -2.5 Osteopenia Equal to / or below -2.5 Osteoporosis As a practical clinical guideline, osteopenia may be graded as follows: Mild -1 through -1.5 Moderate -1.6 through -2.0 Severe -2.1 through -2.4 The Z-score is the number of standard deviations above or below age-matched controls. A Z-score of less than -1.5 would be considered abnormal. References: 1. NIH Osteoporosis and Related Bone Diseases www osteo.org 2. International Society for Clinical Densitometry www iscd.org 3. National Osteoporosis Foundation www nof.org Electronically Signed: Tato Knox MD at 14:04 EST ,
== END | disposition home or self-care (01) ==
LOC: OPBD 13:19
PROVIDERS: PCP Internal Medicine; Referring Provider Internal Medicine; Visit Provider Internal Medicine
DX: Z12.31 Encounter for screening mammogram for malignant neoplasm of breast (principal); Z80.3 Family history of malignant neoplasm of breast; Z78.0 Asymptomatic menopausal state
CPT/HCPCS: 77063; 77067; 77080